=== PATIENT | male | born 1945 | race Two or more races ===

== ENCOUNTER 2018-07-04 15:14 | Emergency (ER) | payer OTHER, BC ==
--- NOTE | 2018-07-04 15:21 | PDOC ---
Rapid Medical Evaluation Time Seen by Provider: 07/04/18 15:18 Medical Evaluation: Allergies Allergy/AdvReac Type Severity Reaction Status Date / Time No Known Allergies Allergy Verified 08/12/15 11:58 07/04/18 15:18 I have performed a brief in-person evaluation of this patient. The patient presents with a chief complaint of: left sided body pain s/p fall from 3-4 ft wall Pertinent physical exam findings: No TTP of bony prominences. +AOB. I have ordered the following: CTH and c-spine The patient will proceed to the ED for further evaluation. Discharge Disposition - Diagnosis Fall - Referrals Referrals: Ruben Combs MD [Primary Care Provider] - - Patient Instructions - Post Discharge Activity
[2018-07-04 15:23] VITALS: BP 139/84; PULSE 84; TEMP 97; BMI 27.4
--- NOTE | 2018-07-04 15:51 | PDOC ---
History of Present Illness - General Chief Complaint: Injury Stated Complaint: FALL Time Seen by Provider: 07/04/18 15:18 History Source: Patient, Spouse Exam Limitations: No Limitations - History of Present Illness Initial Comments: 07/04/18 15:46 73YOM with h/o A-fib on Xarelto, HTN, HLD, COPD, DM, cholecystectomy, and chronic neck and back pain s/p multiple spinal surgeries (laminectomy, fusion) who was BIBEMS s/p fall from 3 ft wall today at 2:30 pm. He was gardening, feeling well, when he slipped on some oil and landed on the right side of his body and head. Denies LOC, hit his right head/ear. Has been mildly/ intermittently lightheaded/SOB since the fall but otherwise no new symptoms other than the pain. His pain is worst in the upper right neck, also has it in the right upper back and right chest. +Remebers the exact moment when he hit the ground and was dazed for a few seconds but again did not black out. Family was at his side immediately, no prolonged down time. Took nothing at home for the subsequent pain. Past History - Past Medical History Allergies/Adverse Reactions: Allergies Allergy/AdvReac Type Severity Reaction Status Date / Time No Known Allergies Allergy Verified 07/04/18 15:23 Home Medications: Ambulatory Orders Dronedarone HCl [Multaq -] 400 mg PO BID 04/02/12 Tiotropium [place] [Spiriva] 18 mcg IH DAILY #0 cap.w.dev 04/05/12 Rivaroxaban [Xarelto -] 20 mg PO DAILY #0 02/06/14 Metoprolol Succinate [Toprol XL -] 100 mg PO HS 02/20/15 Oxycodone HCl/Acetaminophen [Percocet 5-325 mg Tablet] 1 combo PO Q6H PRN #14 tablet 02/20/15 Escitalopram Oxalate [Lexapro -] 10 mg PO DAILY 02/22/15 Lisinopril [Prinivil -] 2.5 mg PO DAILY 02/22/15 Ubidecarenone [Coq-10] 1 tab PO DAILY 02/22/15 metFORMIN HCL [Glucophage -] 500 mg PO BID 02/22/15 Budesonide/Formeterol Fumarate [SYMBICORT 160/4.5mcg -] 1 inh PO DAILY 09/28/15 Pramipexole Dihydrochloride [Mirapex -] 0.25 mg PO DAILY PRN 09/28/15 Multivit-Min/FA/Lycopen/Lutein [Centrum Silver Tablet] 1 each PO DAILY 09/29/15 Ranitidine [Zantac -] 150 mg PO DAILY #0 tablet 09/29/15 Rosuvastatin Calcium [Crestor] 10 mg PO HS 09/29/15 Anemia: No Asthma: Yes Cancer: No Cardiac Disorders: Yes (H/O AFIB) CVA: No COPD: Yes CHF: No Dementia: No Diabetes: Yes (NIDDM) GI Disorders: Yes (REFLUX) Disorders: No HTN: Yes Hypercholesterolemia: Yes Liver Disease: No Seizures: No Thyroid Disease: No - Surgical History Abdominal Surgery: No Appendectomy: No Cardiac Surgery: No Cholecystectomy: Yes Lung Surgery: No Neurologic Surgery: Yes (ANT/POST. FUSION OF NECK) Orthopedic Surgery: Yes (LAMINECTOMY;) - Suicide/Smoking/Psychosocial Hx Smoking Status: Yes (QUIT 3 YEARS AGO) Smoking History: Former smoker Have you smoked in the past 12 months: No Number of Cigarettes Smoked Daily: 0 If you are a former smoker, when did you quit?: 10YRS Information on smoking cessation initiated: No 'Breaking Loose' booklet given: 02/22/15 Hx Alcohol Use: Yes Drug/Substance Use Hx: No Substance Use Type: Alcohol Hx Substance Use Treatment: No Trauma Specific PMHX - Complaint Specific PMHX Arthritis: No Review of Systems - Review of Systems Able to Perform ROS?: Yes Comments:: GEN: no fever, chills, malaise, generalized weakness, or weight change HEENT: no ear pain, sore throat, vision change, or eye pain CV: right chest pain, lightheadedness, no palpitations, syncope, or edema RESP: SOB, no cough, no wheezing GI: no abdominal pain, nausea, vomiting, diarrhea, constipation, or white/black/ bloody stool : no dysuria, hematuria, incontinence, retention, bleeding, or discharge MSK: neck/back pain, otherwise no muscle weakness/pain, or joint swelling/pain NEURO: no headache, seizure, vertigo, numbness, tingling, or focal weakness PSYCH: no substance use, no behavior change SKIN: no jaundice, no rash ROS otherwise negative except as noted in HPI *Physical Exam - Vital Signs Last Vital Signs Temp Pulse Resp BP Pulse Ox 97.0 F L 84 18 139/84 100 07/04/18 15:20 07/04/18 15:20 07/04/18 15:20 07/04/18 15:20 07/04/18 15:20 07/04/18 16:03 GENERAL: pleasant elderly male who is uncomfortable but well-appearing, A/Ox4, no distress, answers questions appropriately, moderate discomfort with repositioning for back exam HEENT: PERRLA, EOMI, moist mucous membranes, no dunn sign, no hemotympanum, no scalp contusion/abrasion/laceration NECK/BACK: see Skin Section for surgical scars, midline and superior right paraspinous ttp, no spinal stepoff or deformity, no hematoma, neck supple CARDIOVASCULAR: irregularly irregular, normal S1S2, no MGR, strong peripheral pulses, capillary refill <2 seconds, extremities wwp, no edema LUNGS/RESPIRATORY: no respiratory distress, CTAB GI/ABDOMEN: symmetric [id number], normoactive BS, soft, no ttp, no midline pulsatile masses : no CVA tenderness EXTREMITIES: no muscle atrophy, no acute deformity, no edema SKIN: midline well-healed surgical scars to cervical spine, tiny skin avulsion to right anterior haskins, warm and dry, no pallor, no jaundice, no rash, no bruising, no skin breakdown, no cuts, no lesions NEUROLOGICAL: GCS 15, CN II-XII grossly intact, 5/5 strength proximally and distally, no facial droop Heart Score/ECG Review #1 07/04/18 15:56 A-fib, rate 72, slight flutter wave in III, normal axis and intervals, no ischemic ST-T changes ED Treatment Course - RADIOLOGY Radiology Studies Ordered: Category Date Time Status CXRPORT [CHEST X-RAY PORTABLE*] [RAD] Stat Radiology 07/04/18 15:25 Ordered Medical Decision Making - Medical Decision Making 07/04/18 16:39 Pt p/w fall and head injury. Initial Vital Signs Temp Pulse Resp BP Pulse Ox 97.0 F L 84 18 139/84 100 07/04/18 15:20 07/04/18 15:20 07/04/18 15:20 07/04/18 15:20 07/04/18 15:20 Exam: As noted in Physical Exam section. DDX IBNLT: C-spine injury, whiplash injury, muscle strain/sprain, very unlikely concussion, ICH, or other more concerning etiology. W/U ordered: Head and C-spine CT and EKG and CXR TX ordered: Tramadol EKG: Reviewed; results as noted in ECG Review section. CHEST X-RAY PORTABLE* HISTORY PROVIDED: Fall. A single frontal portable projection of the chest at 4:56 PM is submitted. The heart size is mildly enlarged. The lung larsen are free of pulmonary infiltrates or pleural effusions. Platelike atelectasis is noted at the right lung base. There is tortuosity and calcification of the thoracic aorta and degenerative arthritis of the thoracic spine. IMPRESSION: Cardiomegaly, right basilar atelectasis, no acute pathology. CT/HEAD CT WITHOUT CONTRAST HISTORY PROVIDED: Head trauma TECHNIQUE: Sequential axial images were obtained from the base of the skull to the vertex. There is no evidence of acute intracranial hemorrhage, mass lesions or infarctions. There is a mild degree of diffuse cerebral atrophy with sulcal widening and ventricular dilatation. There is no evidence of fracture or acute bony abnormalities. IMPRESSION: No evidence of acute intracranial pathology. CT/CERVICAL SPINE CT W/O CONTR History provided: Trauma. Sequential axial images were obtained through the cervical spine from the base of the skull to the thoracic inlet. Coronal and sagittal reconstructed images were also performed. There is no evidence of fracture, subluxation or acute bony abnormalities. The patient is S/P laminectomy with anterior fusion from C3 to C6. Clinical correlation as to the nature of the procedure is recommended. IMPRESSION: Extensive postoperative changes of the cervical spine with no fracture or acute pathology. Reassessment: Patient refusing Tramadol; #1 Percocet ordered. The Pt has gotten significant relief of symptoms while in the ED. They have been observed without AMS, n/v, LOC, or focal neuro findings in the ED. Workup is not concerning for emergency-level pathology at this time. The Pt is appropriate for discharge with close outpatient follow up. They are comfortable with this plan and will follow up with their primary care provider in 1-3 days. Return precautions for concussion and CHI are discussed and they will come back to the ER if necessary. *DC/Admit/Observation/Transfer Diagnosis at time of Disposition: Fall Qualifiers: Encounter type: initial encounter Qualified Code(s): W19.XXXA - Unspecified fall, initial encounter - Discharge Dispostion Disposition: HOME Condition at time of disposition: Stable Decision to Admit order: No - Referrals Referrals: Ruben Combs MD [Primary Care Provider] - - Patient Instructions Additional Instructions: You were seen in the ER for a fall and neck pain. We did an EKG and imaging studies and found no new concerning findings. We gave you Flexeril and a Percocet for pain. After our assessment, we do not believe you are having a medical emergency at this time, and we believe you are safe to go home. Please follow up with your primary care provider in 1-3 days. Call their clinic as soon as possible, tell them you were seen in the ER, and tell them you need an appointment. If you have any new or worsening symptoms, please come back to the ER at any time (24 hours a day). Read through the concussion and head injury discharge instructions we are including in this information packet. If you are having severe or life threatening symptoms, or symptoms that make it unsafe to drive or have someone drive you, please call 911. - Post Discharge Activity
[2018-07-04] MEDS ORDERED: traMADol HCL 50 MG TABLET PO ONE (17:00)
[2018-07-04] MEDS ORDERED: traMADol HCL 50 MG TABLET ONE (17:20)
[2018-07-04] MEDS ORDERED: CYCLOBENZAPRINE HCL 10 MG TABLET (FP) PO ONE (17:50)
--- NOTE | 2018-07-04 17:53 | PDOC ---
Attending Attestation - Resident Resident Name: Lis Kerr - ED Attending Attestation I have performed the following: I have examined & evaluated the patient, The case was reviewed & discussed with the resident, I agree w/resident's findings & plan, Exceptions are as noted - HPI HPI: 07/04/18 17:47 This is a 73 year old male with a significant past medical history of Afib (on Xarelto), DM, COPD, HTN, hypercholesterolemia, cholecystectomy, and neck and back surgeries, that was BIBEMS to the emergency department today s/p fall off a 3 ft wall earlier today. Patient notes he was gardening as normal and slipped on oil, causing him to fall on his head and right side of his body. Patient states he remembers the fall, and hit the right side of his head and his right ear, but denies LOC. He admits being dazed after the fall but denies blacking out. Patient notes pain is most prominent on the right side of his neck and the right side of his back. Denies headache, blurry vision, dizziness, N/V/D, CP/SOB , other injuries, abd pain. Denies etoh. Denies fever, chills. PCP: Dr. Combs Surgical hx: Laminectomy, spinal fusion. - Physicial Exam PE: 07/04/18 17:51 GENERAL: Awake, alert, and fully oriented, in no acute distress HEAD: No signs of trauma EYES: PERRLA, EOMI, sclera anicteric, conjunctiva clear ENT: Nares patent, oropharynx clear without exudates. Moist mucosa NECK: +Paraspinal cervical ttp. +well healed midline cervical scar. Normal ROM, supple, no lymphadenopathy, JVD, or masses LUNGS: Breath sounds equal, clear to auscultation bilaterally. No wheezes, and no crackles HEART: Regular rate and rhythm, normal S1 and S2, no murmurs, rubs or gallops ABDOMEN: Soft, nontender, normoactive bowel sounds. No guarding, no rebound. No masses EXTREMITIES: Normal range of motion, no edema. No clubbing or cyanosis. No cords , erythema, or tenderness. No snuffbox ttp b/l. 2+ peripheral pulses x4. BACK: +Paraspinal lower lumbar pain. No midline cervical, thoracic, or lumbar spinal tenderness to palpation. No stepoffs or deformities NEUROLOGICAL: Normal speech, cranial nerves intact, 5/5 strength in all 4 extremities, normal sensation to light touch in all 4 extremities, normal cerebellar exam, normal gait, normal tone SKIN: Warm, Dry, normal turgor, no rashes or lesions noted. - Medical Decision Making 07/04/18 17:53 73yo M presents to the ED with paraspinal neck and lower back pain and tenderness after a mechanical fall. Denies FOOSH R arm pain. Denies chest or rib pain. Pt states it feels like his previous muscle spasms in his neck and requests percocet (he takes at home) and a muscle relaxer. Pt declined tramadol as he only wants percocet. Pt is otherwise well appearing. CTH, c-spine with no acute findings. CXR with atelectasis but no acute findings, lungs clear on exam with no hypoxia. No ttp over the ribs. Plan for FAST exam and reassess after percocet and flexeril. 07/04/18 18:21 FAST negative Pt well appearing, requests DC home Return precautions given to pt and Stable for DC home, to be driven home by son. I discussed the physical exam findings, ancillary test results and final diagnoses with the patient. I answered all of the patient's questions. The patient was satisfied with the care received and felt comfortable with the discharge plan and treatment plan. The patient will call their primary care physician within 24 hours to arrange follow-up and will return to the Emergency Department with any new, persistent or worsening symptoms.
[2018-07-04] MEDS ORDERED: CYCLOBENZAPRINE HCL 10 MG TABLET (FP) ONE (17:58)
--- NOTE | 2018-07-06 10:15 | EKG ---
Test Reason : Blood Pressure : / mmHG Vent. Rate : 072 BPM Atrial Rate : 063 BPM P-R Int : 000 ms QRS Dur : 090 ms QT Int : 406 ms P-R-T Axes : 000 038 057 degrees QTc Int : 444 ms ATRIAL FIBRILLATION ABNORMAL ECG WHEN COMPARED WITH ECG OF 12-AUG-2015 13:00, ATRIAL FIBRILLATION HAS REPLACED SINUS RHYTHM Confirmed by RONALDO CUEVAS MD ([id number]) on 07/06/2018 10:15:32 AM Referred By: Confirmed By:RONALDO CUEVAS MD
== END 2018-07-04 18:25 | disposition home or self-care (01) ==
LOC: JER 15:14
DX: S09.8XXA Other specified injuries of head, initial encounter (principal); W13.8XXA Fall from, out of or through other building or structure, initial encounter; Y93.H2 Activity, gardening and landscaping; Y92.017 Garden or yard in single-family (private) house as the place of occurrence of the external cause; Y99.8 Other external cause status; I10 Essential (primary) hypertension; E78.00 Pure hypercholesterolemia, unspecified; E11.9 Type 2 diabetes mellitus without complications; Z79.84 Long term (current) use of oral hypoglycemic drugs; I48.91 Unspecified atrial fibrillation; Z79.01 Long term (current) use of anticoagulants; J44.9 Chronic obstructive pulmonary disease, unspecified; Z90.49 Acquired absence of other specified parts of digestive tract; Z98.890 Other specified postprocedural states
CPT/HCPCS: 70450-TC; 71045-TC-FY; 72125-TC; 93005; 93010; 99283-25

== ENCOUNTER 2019-03-13 07:06 | Day surgery (SDC) | payer OTHER, BC ==
[2019-03-11 08:48] VITALS: BMI 29.1
[2019-03-13] MEDS ORDERED: TAMSULOSIN HCL 0.4 MG CAP ONE (07:18)
[2019-03-13] MEDS ORDERED: ceFAZolin SODIUM 1 GM VIAL ONE ×2 (07:18→08:32)
[2019-03-13] MEDS ORDERED: PROPOFOL 20 ML ONE (08:31)
[2019-03-13] MEDS ORDERED: SODIUM CHLORIDE 0.9% P/F 10 ML VIAL IJ ONE (08:32)
[2019-03-13] MEDS ORDERED: ONDANSETRON 4 MG/2 ML VIAL ONE (08:32)
[2019-03-13] MEDS ORDERED: LIDOCAINE HCL/PF 2% SDV 5ML VIAL ONE (08:32)
[2019-03-13] MEDS ORDERED: ROCURONIUM BROMIDE 50 MG/5 ML SYRINGE ONE (08:32)
[2019-03-13] MEDS ORDERED: ROPIVACAINE HCL 0.5% 30ML VIAL ONE (08:45)
[2019-03-13] MEDS ORDERED: DEXAMETHASONE SOD PHOSPHATE/PF 10 MG/ML SDV ONE (08:45)
[2019-03-13] MEDS ORDERED: NEOSTIGMINE METHYLSULFATE 0.5 MG/1 ML - 10 ML MDV ONE (08:47)
[2019-03-13] MEDS ORDERED: MIDAZOLAM HCL 2 MG/2 ML SINGLE DOSE VIAL ONE ×2 (08:47)
[2019-03-13] MEDS ORDERED: GLYCOPYRROLATE 0.2 MG/1 ML VIAL ONE ×2 (08:48→10:12)
[2019-03-13] MEDS ORDERED: LIDOCAINE HCL 1%, 10 MG/ML (20ML VIAL) ONE (09:10)
[2019-03-13] MEDS ORDERED: ceFAZolin SODIUM 1 GM VIAL IVPB ONE (09:25)
[2019-03-13] MEDS ORDERED: DEXAMETHASONE SOD PHOSPHATE 4 MG/1 ML VIAL ONE (09:27)
[2019-03-13] MEDS ORDERED: ONDANSETRON 4 MG/2 ML VIAL IVPUSH PRN (10:24)
[2019-03-13] MEDS ORDERED: oxyCODONE HCL 5 MG TABLET PO PRN (10:24)
[2019-03-13] MEDS ORDERED: LACTATED RINGERS SOLUTION 1,000 ML IV SCH (10:30)
--- NOTE | 2019-03-13 12:15 | HP ---
DATE OF SURGERY: 03/13/19 REASON FOR ADMISSION: Left inguinal hernia. BRIEF HISTORY: This is a 74-year-old gentleman with greater than a 5-year history of having a left inguinal hernia. Initially, the hernia was very small, and the patient was told to manage this expectantly. Over this time, of course, the hernia has gotten significantly larger, and now, causes him discomfort at times. He wishes to his hernia repaired. The patient states the hernia would pop out at times and sometimes be very painful, and he has to push it back in, and subsequently, the pain will be resolved. When this occurs there has been no change in bowel habits, nausea, or vomiting. PAST MEDICAL HISTORY: Significant for pulmonary issues. 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 MEDICATIONS: Patient takes Xarelto, metformin, ranitidine, escitalopram, metoprolol, rosuvastatin, nitroglycerin, Symbicort, Spiriva, amlodipine, lisinopril and oxycodone. ALLERGIES: None. SOCIAL HISTORY: Patient denies tobacco use. He drinks socially. PHYSICAL EXAMINATION: Abdomen: Patient examined in erect and supine positions. He has a large left inguinal hernia with extension into the left proximal scrotum. The hernia is reducible with some difficulty in the supine position. The left scrotum and testicles are within normal limits. No obvious finding in the right groin, but a fair amount of laxity is ntoed. IMPRESSION/PLAN: Left inguinal hernia, cannot rule out small right inguinal hernia: This is a 74-year-old gentleman symptomatic from an enlarging left inguinal hernia. At this point, given his symptoms, I would recommend proceeding with a repair. Patient is a candidate for laparoscopic repair of his left inguinal hernia and examination and possible repair on the right. However, he is on Xarelto. This can only be done laparoscopically if he is able to stop his Xarelto for the necessary surgery, and he cannot start the Xarelto for 3 days after surgery. If this cannot be accomplished without a Lovenox bridge or some other form of bridging, he is not a candidate for laparoscopic repair, and therefore, this can be performed in an open fashion with stopping of his Xarelto and bridging as necessary. Prior to any surgical intervention, the patient will be evaluated by his primary care physician and his radar systems engineer to determine stopping his Xarelto and managing him from a cardiovascular standpoint to ensure he is medically cleared. The indications, alternatives, and complications of both procedures have been discussed with this gentleman at length. He understands he is more likely to develop a postoperative seroma, which may or may not resolve due to the fact that he is on blood thinner. Patient understands these risks and still wishes to proceed. Patricia CARLIN [id number] cc: Ruben Combs MD MTDD
[2019-03-13] MEDS ORDERED: oxyCODONE HCL 5 MG TABLET ONE (12:54)
[2019-03-13 13:05] VITALS: TEMP 98
--- NOTE | 2019-03-13 13:49 | OP ---
DATE OF OPERATION: 03/13/2019 PREOPERATIVE DIAGNOSIS: Left inguinal hernia. POSTOPERATIVE DIAGNOSIS: Left indirect inguinal hernia, right inguinal hernia indirect. PROCEDURE: Bilateral inguinal herniorrhaphy with mesh. SURGEON: Bib Russell MD TIRE SPOTTER: Sushil Guido DO ANESTHESIA: Shital Nieves MD (general). ESTIMATED BLOOD LOSS: Minimal. SPECIMEN: None. INDICATIONS/PROCEDURE: This is a 74-year-old gentleman with greater than a 5- year history of having a left inguinal hernia that is causing him discomfort. Now, he wishes to have this repaired. Patient was identified and appropriately positioned on the operating room table. After placement of general anesthesia, the abdomen was prepped and draped in the usual sterile fashion with ChloraPrep. An infraumbilical incision was made deep into the subcutaneous tissues. The fascia of the rectus muscle on the left identified, divided sharply, the muscles split. Under direct vision, a dissector balloon followed by structural balloon placed. Also, under direct vision, a suprapubic 11-mm port placed. The following structures on the left side identified, pubic tubercle, Coopers ligament, and inferior epigastric vessels, spermatic cord, and lateral abdominal wall. During the dissection, the patient was noted to have attenuation of the direct inguinal floor. There was no actual defect in the direct inguinal floor. He had a large indirect inguinal hernia sac along with a small cord lipoma, both reduced back into the preperitoneal space with blunt and sharp dissection. A 4.5 x 6 piece of Versatex mesh was keyhole placed through the suprapubic port site. The mesh was wrapped around the cord structures laterally to reconstruct the internal ring. Laterally, the mesh anchored to the anterior abdominal wall and lateral abdominal wall. Medially, the mesh anchored to the anterior abdominal wall, pubic tubercle, and Coopers ligament. Upon completion of the left side, similar structures on the right side identified. The right side had no direct component. He had a small indirect inguinal hernia which was reduced back into the preperitoneal space. Another 4.5 x 6 piece of Versatex mesh was keyhole placed through the suprapubic port site. The mesh wrapped around the cord structures laterally to reconstruct the internal ring. Laterally, the mesh anchored to the anterior abdominal wall and lateral abdominal wall. Medially, the mesh well overlapped in the midline, anchored to the anterior abdominal wall, pubic tubercle, and Coopers ligament. The preperitoneal space desufflated under direct vision. The fascia at both port sites were reapproximated with interrupted 0 Vicryl suture. All skin closed with 4-0 subcuticular Biosyn followed by Dermabond. At the conclusion of the case, sponge and instrument counts were correct. ATTESTATION: Brief operative note handwritten on the preprinted form. [facility] queried prior to giving any narcotics. Patricia CARLIN [id number] MTDD
[2019-03-13 14:01] VITALS: BP 149/67; PULSE 90
== END 2019-03-13 14:00 | disposition home or self-care (01) ==
LOC: JASU-SURG 07:06
PROVIDERS: ATTEND Surgery
PROC: 0YUA0JZ Supplement Bilateral Inguinal Region with Synthetic Substitute, Open Approach (ICD-10-PCS; principal; 2019-03-13 09:14)
DX: K40.20 Bilateral inguinal hernia, without obstruction or gangrene, not specified as recurrent (principal)
CPT/HCPCS: 94760

== ENCOUNTER 2021-03-09 11:48 | Inpatient (IN) | payer OTHER, BC ==
[2021-03-09] MEDS ORDERED: ALBUTEROL SO4 2.5/IPRATROPIUM 0.5 INH SOL 3 ML VIAL.NEB. NEB ONE ×6 (11:57→19:11)
[2021-03-09] MEDS ORDERED: methylPREDNISolone NA SUCC 125 MG/2 ML VIAL IVPB ONE (11:58)
[2021-03-09] MEDS ORDERED: ACETAMINOPHEN 325 MG TABLET (FP) PO ONE (12:37)
[2021-03-09] MEDS ORDERED: ACETAMINOPHEN 325 MG TABLET (FP) ONE (12:46)
[2021-03-09] MEDS ORDERED: methylPREDNISolone NA SUCC 125 MG/2 ML VIAL ONE (12:46)
[2021-03-09 13:33] LABS: BASO % 0.7 % (0-2.0); EOS % 1.9 % (0-4.5); HEMATOCRIT 35.7 % (35.4-49); HEMOGLOBIN 11.9 GM/dl (11.7-16.9); LYMPH % 12.4 % (8-40); MCH 30.9 pg (25.7-33.7); MCHC 33.5 g/dl (32.0-35.9); MEAN CELL VOLUME 92.2 fl (80-96); MEAN PLT VOLUME 7.2 fl (7.5-11.1); MONO % 8.5 % (3.8-10.2); NEUT % 76.5 % (42.8-82.8); PLATELET COUNT 145 10^3/uL (134-434); RBC 3.87 M/mm3 (4.00-5.60); RDW 13.3 % (11.9-15.9); WHITE BLOOD COUNT 5.3 K/mm3 (4.0-10.8)
[2021-03-09 13:43] LABS: ACTIVATED PTT 26.8 SECONDS (25.2-36.5)
[2021-03-09 13:47] LABS: INR 1.44 (0.82-1.09); PROTHROMBIN TIME (PATIENT) 15.7 SEC (10.2-13.0)
[2021-03-09 13:50] LABS: ALBUMIN 3.2 g/dl (3.4-5.0); ALK PHOS 44 U/L (45-117); ANION GAP 8 MMOL/L (8-16); CALCIUM 8.2 mg/dl (8.5-10); CHLORIDE 99 mmol/L (98-107); CO2 25 mmol/L (21-32); CREATININE 0.7 mg/dl (0.55-1.3); GLUCOSE,RANDOM 180 mg/dl (74-106); MAGNESIUM 1.5 mg/dL (1.8-2.4); SGOT/AST 29 U/L (15-37); SGPT/ALT 37 U/L (13-61); SODIUM 132 mmol/L (136-145); TOT PROT 5.6 g/dl (6.4-8.2)
[2021-03-09] MEDS ORDERED: CEFTRIAXONE 1 GM in DEXTROSE 5%-WATER - 100 ML IVPB ONE (14:10)
[2021-03-09] MEDS ORDERED: AZITHROMYCIN IVPB 500 MG in DEXTROSE 5%-WATER - 250 ML IVPB ONE (14:10)
[2021-03-09] MEDS ORDERED: MAGNESIUM SULF 50% (8.12 MEQ/2 ML-1 GM VIAL) IVPB ONE (14:22)
[2021-03-09] MEDS ORDERED: AZITHROMYCIN 500 MG VIAL IVPB ONE (14:43)
[2021-03-09] MEDS ORDERED: cefTRIAXone SODIUM 1 GM VIAL ONE (14:43)
[2021-03-09 15:02] LABS: VENOUS BASE EXCESS -0.7 mmol/L (-2-2); VENOUS PH 7.322 (7.310-7.410)
[2021-03-09 15:14] LABS: N-TERMINAL BNP 1696.4 pg/ml (5-450)
[2021-03-09] MEDS ORDERED: MAGNESIUM 1GM/D5W - 2 GM/200 ML IVPB IVPB ONE (16:11)
[2021-03-09 20:24] VITALS: BMI 28.0
[2021-03-09] MEDS ORDERED: ALBUTEROL SO4 2.5/IPRATROPIUM 0.5 INH SOL 3 ML VIAL.NEB. NEB PRN (21:34)
[2021-03-09] MEDS: BUDESONIDE/FORMETEROL FUMARATE 160/4.5 mcg INHALER IH SCH (22:09)
[2021-03-09] MEDS: RANOLAZINE E.R. 500 MG TABLET (FP) PO SCH (22:10)
[2021-03-09] MEDS: GABAPENTIN 300 MG CAPSULE PO SCH (22:10)
[2021-03-09] MEDS: ESCITALOPRAM OXALATE 10 MG TABLET PO SCH (22:10)
[2021-03-09] MEDS: ROSUVASTATIN CA 10 MG TABLET (FP) PO SCH (22:10)
[2021-03-10] MEDS: methylPREDNISolone NA SUCC 40 MG/1 ML VIAL IVPUSH SCH ×3 (03:00→18:01)
[2021-03-10] MEDS: GABAPENTIN 300 MG CAPSULE PO SCH ×3 (06:02→21:27)
[2021-03-10] MEDS ORDERED: metFORMIN HCL 500 MG TABLET (FP) PO SCH (07:00)
[2021-03-10] MEDS: TAMSULOSIN HCL 0.4 MG CAP PO SCH (08:03)
[2021-03-10] MEDS: amLODIPine BESYLATE 5 MG TABLET (FP) PO SCH (09:04)
[2021-03-10] MEDS: LOSARTAN POTASSIUM 50 MG TABLET PO SCH (09:04)
[2021-03-10] MEDS: ESCITALOPRAM OXALATE 10 MG TABLET PO SCH ×2 (09:04→21:27)
[2021-03-10] MEDS: RANOLAZINE E.R. 500 MG TABLET (FP) PO SCH ×2 (09:05→21:28)
[2021-03-10] MEDS: MONTELUKAST NA 10 MG TABLET PO SCH (09:05)
[2021-03-10] MEDS: FINASTERIDE 5 MG TABLET (FP) PO SCH (09:05)
[2021-03-10] MEDS: TIOTROPIUM BROMIDE 2.5 MCG (SPIRIVA) RESPIMAT INHALER IH SCH (09:06)
[2021-03-10] MEDS: BUDESONIDE/FORMETEROL FUMARATE 160/4.5 mcg INHALER IH SCH ×2 (10:01→21:31)
[2021-03-10] MEDS: FAMOTIDINE 20 MG TABLET PO SCH (12:01)
[2021-03-10 12:29] LABS: BASO % 0.2 % (0-2.0); EOS % 0.1 % (0-4.5); HEMATOCRIT 33.5 % (35.4-49); HEMOGLOBIN 11.2 GM/dl (11.7-16.9); LYMPH % 7.6 % (8-40); MCH 30.9 pg (25.7-33.7); MCHC 33.3 g/dl (32.0-35.9); MEAN CELL VOLUME 92.9 fl (80-96); MEAN PLT VOLUME 6.7 fl (7.5-11.1); MONO % 4.2 % (3.8-10.2); NEUT % 87.9 % (42.8-82.8); PLATELET COUNT 175 10^3/uL (134-434); RBC 3.61 M/mm3 (4.00-5.60); RDW 13.2 % (11.9-15.9); WHITE BLOOD COUNT 8.6 K/mm3 (4.0-10.8)
[2021-03-10] MEDS: AZITHROMYCIN 250 MG TABLET PO SCH (12:55)
[2021-03-10 12:56] LABS: ALBUMIN 3.2 g/dl (3.4-5.0); BILIRUBIN,TOTAL 0.9 mg/dl (0.2-1); CALCIUM 8.3 mg/dl (8.5-10); CREATININE 0.7 mg/dl (0.55-1.3); MAGNESIUM 1.8 mg/dL (1.8-2.4); TOT PROT 5.7 g/dl (6.4-8.2)
[2021-03-10] MEDS ORDERED: DEXTROSE 50%-WATER - 25 GM/50 ML VIAL IVPUSH PRN ×2 (15:57→15:58)
[2021-03-10] MEDS ORDERED: DEXTROSE 50%-WATER 25 GM/50 ML DISP.SYRIN IVPUSH PRN ×2 (16:03)
[2021-03-10] MEDS: INSULIN SLIDING SCALE (NOVOLOG) 1 VIAL SQ SCH ×2 (16:38→21:28)
[2021-03-10] MEDS: RIVAROXABAN 20 MG TABLET PO SCH (18:01)
[2021-03-10] MEDS: ROSUVASTATIN CA 10 MG TABLET (FP) PO SCH (21:27)
[2021-03-11] MEDS: methylPREDNISolone NA SUCC 40 MG/1 ML VIAL IVPUSH SCH ×3 (02:00→18:49)
[2021-03-11] MEDS: GABAPENTIN 300 MG CAPSULE PO SCH ×3 (06:14→21:18)
[2021-03-11] MEDS: INSULIN SLIDING SCALE (NOVOLOG) 1 VIAL SQ SCH ×4 (06:18→21:19)
[2021-03-11 08:08] LABS: CALCIUM 8.6 mg/dl (8.5-10); CREATININE 0.6 mg/dl (0.55-1.3)
[2021-03-11] MEDS: BUDESONIDE/FORMETEROL FUMARATE 160/4.5 mcg INHALER IH SCH ×2 (10:00→21:21)
[2021-03-11] MEDS: TIOTROPIUM BROMIDE 2.5 MCG (SPIRIVA) RESPIMAT INHALER IH SCH (10:00)
[2021-03-11] MEDS: FINASTERIDE 5 MG TABLET (FP) PO SCH (11:30)
[2021-03-11] MEDS: RANOLAZINE E.R. 500 MG TABLET (FP) PO SCH ×2 (11:45→21:19)
[2021-03-11] MEDS: LOSARTAN POTASSIUM 50 MG TABLET PO SCH (11:45)
[2021-03-11] MEDS: ESCITALOPRAM OXALATE 10 MG TABLET PO SCH ×2 (11:46→21:18)
[2021-03-11] MEDS: TAMSULOSIN HCL 0.4 MG CAP PO SCH (11:46)
[2021-03-11] MEDS: amLODIPine BESYLATE 5 MG TABLET (FP) PO SCH (11:46)
[2021-03-11] MEDS: FAMOTIDINE 20 MG TABLET PO SCH (11:46)
[2021-03-11] MEDS: AZITHROMYCIN 250 MG TABLET PO SCH (11:46)
[2021-03-11] MEDS: MONTELUKAST NA 10 MG TABLET PO SCH (11:46)
[2021-03-11] MEDS: RIVAROXABAN 20 MG TABLET PO SCH (18:49)
[2021-03-11] MEDS: ROSUVASTATIN CA 10 MG TABLET (FP) PO SCH (21:18)
[2021-03-12] MEDS: methylPREDNISolone NA SUCC 40 MG/1 ML VIAL IVPUSH SCH ×3 (02:00→18:05)
[2021-03-12] MEDS: GABAPENTIN 300 MG CAPSULE PO SCH ×3 (05:19→21:47)
[2021-03-12] MEDS: INSULIN SLIDING SCALE (NOVOLOG) 1 VIAL SQ SCH ×5 (06:00→21:46)
[2021-03-12] MEDS: metFORMIN HCL 500 MG TABLET (FP) PO SCH ×2 (06:00→16:35)
[2021-03-12 08:07] LABS: BASO % 0.2 % (0-2.0); EOS % 0.1 % (0-4.5); HEMATOCRIT 31.7 % (35.4-49); HEMOGLOBIN 10.9 GM/dl (11.7-16.9); LYMPH % 7.9 % (8-40); MCH 31.9 pg (25.7-33.7); MCHC 34.4 g/dl (32.0-35.9); MEAN CELL VOLUME 92.5 fl (80-96); MEAN PLT VOLUME 7.1 fl (7.5-11.1); MONO % 3.8 % (3.8-10.2); PLATELET COUNT 180 10^3/uL (134-434); RBC 3.42 M/mm3 (4.00-5.60); RDW 12.6 % (11.9-15.9); WHITE BLOOD COUNT 8.9 K/mm3 (4.0-10.8)
[2021-03-12 08:16] LABS: ALBUMIN 2.9 g/dl (3.4-5.0); BILIRUBIN,TOTAL 0.9 mg/dl (0.2-1); CALCIUM 8.7 mg/dl (8.5-10); CREATININE 0.6 mg/dl (0.55-1.3); TOT PROT 5.2 g/dl (6.4-8.2)
[2021-03-12] MEDS: RANOLAZINE E.R. 500 MG TABLET (FP) PO SCH ×2 (09:51→21:47)
[2021-03-12] MEDS: amLODIPine BESYLATE 5 MG TABLET (FP) PO SCH (09:51)
[2021-03-12] MEDS: TAMSULOSIN HCL 0.4 MG CAP PO SCH (09:51)
[2021-03-12] MEDS: MONTELUKAST NA 10 MG TABLET PO SCH (09:52)
[2021-03-12] MEDS: AZITHROMYCIN 250 MG TABLET PO SCH (09:52)
[2021-03-12] MEDS: TIOTROPIUM BROMIDE 2.5 MCG (SPIRIVA) RESPIMAT INHALER IH SCH (09:53)
[2021-03-12] MEDS: LOSARTAN POTASSIUM 50 MG TABLET PO SCH (09:53)
[2021-03-12] MEDS: BUDESONIDE/FORMETEROL FUMARATE 160/4.5 mcg INHALER IH SCH ×2 (09:53→21:48)
[2021-03-12] MEDS: ESCITALOPRAM OXALATE 10 MG TABLET PO SCH ×2 (09:54→21:47)
[2021-03-12] MEDS: FAMOTIDINE 20 MG TABLET PO SCH (09:54)
[2021-03-12] MEDS: FINASTERIDE 5 MG TABLET (FP) PO SCH (09:55)
[2021-03-12] MEDS ORDERED: INSULIN SLIDING SCALE (NOVOLOG) 1 VIAL SQ ONE (11:21)
[2021-03-12] MEDS: RIVAROXABAN 20 MG TABLET PO SCH (18:04)
[2021-03-12] MEDS: ROSUVASTATIN CA 10 MG TABLET (FP) PO SCH (21:47)
[2021-03-12 21:52] VITALS: TEMP 97.9
[2021-03-13] MEDS: methylPREDNISolone NA SUCC 40 MG/1 ML VIAL IVPUSH SCH ×2 (01:32→10:13)
[2021-03-13] MEDS: GABAPENTIN 300 MG CAPSULE PO SCH (06:27)
[2021-03-13] MEDS: metFORMIN HCL 500 MG TABLET (FP) PO SCH (06:29)
[2021-03-13] MEDS: INSULIN SLIDING SCALE (NOVOLOG) 1 VIAL SQ SCH ×2 (06:33→13:48)
[2021-03-13 10:13] VITALS: BP 116/82; PULSE 55
[2021-03-13] MEDS: AZITHROMYCIN 250 MG TABLET PO SCH (10:13)
[2021-03-13] MEDS: FINASTERIDE 5 MG TABLET (FP) PO SCH (10:13)
[2021-03-13] MEDS: LOSARTAN POTASSIUM 50 MG TABLET PO SCH (10:14)
[2021-03-13] MEDS: TAMSULOSIN HCL 0.4 MG CAP PO SCH (10:14)
[2021-03-13] MEDS: ESCITALOPRAM OXALATE 10 MG TABLET PO SCH (10:14)
[2021-03-13] MEDS: MONTELUKAST NA 10 MG TABLET PO SCH (10:14)
[2021-03-13] MEDS: amLODIPine BESYLATE 5 MG TABLET (FP) PO SCH (10:14)
[2021-03-13] MEDS: RANOLAZINE E.R. 500 MG TABLET (FP) PO SCH (10:14)
[2021-03-13] MEDS: TIOTROPIUM BROMIDE 2.5 MCG (SPIRIVA) RESPIMAT INHALER IH SCH (10:15)
[2021-03-13] MEDS: FAMOTIDINE 20 MG TABLET PO SCH (10:15)
[2021-03-13] MEDS: BUDESONIDE/FORMETEROL FUMARATE 160/4.5 mcg INHALER IH SCH (10:16)
[2021-03-13] MEDS ORDERED: PATIENT'S OWN MEDICATION (NON-FORMULARY) (Albuterol Sulfate [Proair Respiclick] 90 MCG Aer IH PRN (10:34)
[2021-03-13] MEDS ORDERED: methylPREDNISolone NA SUCC 40 MG/1 ML VIAL IVPUSH SCH (10:45)
[2021-03-13] MEDS ORDERED: INSULIN (NOVOLOG) ASPART 100 UNITS/ML 10ML VIAL SQ SCH (11:00)
== END 2021-03-13 12:35 | disposition home or self-care (01) | DRG 191 ==
LOC: FER 11:48 → FM/S 14:22
PROVIDERS: ADMIT Specialist; ATTEND Specialist
DX: J44.1 Chronic obstructive pulmonary disease with (acute) exacerbation (principal); E87.1 Hypo-osmolality and hyponatremia; I48.91 Unspecified atrial fibrillation; E11.9 Type 2 diabetes mellitus without complications; Z79.01 Long term (current) use of anticoagulants; J44.9 Chronic obstructive pulmonary disease, unspecified; E78.00 Pure hypercholesterolemia, unspecified; I48.0 Paroxysmal atrial fibrillation; E83.42 Hypomagnesemia
CPT/HCPCS: 36415; 71045-TC-FY; 80048; 80053; 82550; 82803; 82962; 83735; 83880; 84484; 85025; 85610; 85730; 87040; 93005; 94640; 99285-25; C9803; U0003; U0005

== ENCOUNTER 2021-06-05 17:02 | Inpatient (IN) | payer OTHER, BC ==
[2021-06-05] MEDS ORDERED: HALOPERIDOL LACTATE 5 MG/ML IM ONE (17:48)
[2021-06-05] MEDS ORDERED: LORazepam 2 MG/ML SDV VIAL IM ONE (17:48)
[2021-06-05] MEDS ORDERED: HALOPERIDOL LACTATE 5 MG/ML ONE (18:03)
[2021-06-05] MEDS ORDERED: LORazepam 2 MG/ML SDV VIAL ONE (18:03)
[2021-06-05 19:50] LABS: PH,URINE 5.5 (5.0-8.0); URINE APPEARANCE CLOUDY; URINE BILIRUBIN NEGATIVE (NEGATIVE); URINE COLOR YELLOW; URINE GLUCOSE (UA) 3+ (NEGATIVE); URINE KETONE NEGATIVE (NEGATIVE); URINE LEUK ESTERASE NEGATIVE (NEGATIVE); URINE NITRITE NEGATIVE (NEGATIVE); URINE PROTEIN NEGATIVE (NEGATIVE); URINE UROBILINOGEN 0.2 mg/dL (0.2-1.0)
[2021-06-05 19:51] LABS: HEMATOCRIT 32.1 % (35.4-49); HEMOGLOBIN 10.9 GM/dL (11.7-16.9); MCH 31.5 pg (25.7-33.7); MCHC 33.8 g/dl (32.0-35.9); MEAN CELL VOLUME 93.3 fl (80-96); MEAN PLT VOLUME 8.2 fl (7.5-11.1); PLATELET COUNT 194 10^3/uL (134-434); RBC 3.45 M/mm3 (4.00-5.60); RDW 14.1 % (11.9-15.9); WHITE BLOOD COUNT 5.8 K/mm3 (4.0-10.0)
[2021-06-05 19:58] LABS: INR 1.46 (0.83-1.09); PROTHROMBIN TIME (PATIENT) 16.4 SEC (9.7-13.0)
[2021-06-05 20:00] LABS: ACTIVATED PTT 26.2 SECONDS (25.2-36.5)
[2021-06-05 20:02] LABS: COCAINE, UR NEGATIVE (NEGATIVE); METHADONE, UR NEGATIVE (NEGATIVE); OPIATES, URI NEGATIVE (NEGATIVE); PHENCYCLIDINE,URINE NEGATIVE (NEGATIVE); URINE AMPHETAMINES NEGATIVE (NEGATIVE); URINE BARBITURATES NEGATIVE (NEGATIVE); URINE BENZODIAZEPINES NEGATIVE (NEGATIVE)
[2021-06-05 20:07] LABS: CHLORIDE 106 mmol/L (98-107); SODIUM 138 mmol/L (136-145)
[2021-06-05 20:10] LABS: ALBUMIN 2.8 g/dl (3.4-5.0); ANION GAP 10 MMOL/L (8-16); BLOOD UREA NITROGEN 12.4 mg/dL (7-18); CO2 22 mmol/L (21-32); GLUCOSE,RANDOM 235 mg/dL (74-106); MAGNESIUM 1.3 mg/dL (1.8-2.4)
[2021-06-05 20:13] LABS: CREATININE 0.7 mg/dL (0.55-1.3); SGOT/AST 42 U/L (15-37); SGPT/ALT 26 U/L (13-61)
[2021-06-05] MEDS ORDERED: MAGNESIUM SULF 50% (8.12 MEQ/2 ML-1 GM VIAL) IVPB ONE (20:13)
[2021-06-05 20:14] LABS: PHOSPHOROUS 2.8 mg/dL (2.5-4.9)
[2021-06-05 20:15] LABS: BILIRUBIN,TOTAL 0.4 mg/dL (0.2-1); TOT PROT 5.7 g/dl (6.4-8.2)
[2021-06-05] MEDS ORDERED: FOLIC ACID INJECTION - 1 MG, THIAMINE HCL 100 MG, MULTIVIT INJECTION ADULT 10 ML in SOD... IVPB ONE (20:16)
[2021-06-05 20:24] LABS: ALK PHOS 54 U/L (45-117)
[2021-06-05 21:10] LABS: ANISOCYTOSIS 1+; MACROCYTOSIS 0; PLATELET ESTIMATE NORMAL
[2021-06-05 21:27] LABS: ALBUMIN 2.9 g/dl (3.4-5.0); BLOOD UREA NITROGEN 12.1 mg/dL (7-18)
[2021-06-05 21:30] LABS: CREATININE 0.7 mg/dL (0.55-1.3)
[2021-06-05 21:32] LABS: BILIRUBIN,TOTAL 0.3 mg/dL (0.2-1); TOT PROT 5.6 g/dl (6.4-8.2)
[2021-06-06 08:56] LABS: HEMATOCRIT 30.6 % (35.4-49); HEMOGLOBIN 10.6 GM/dL (11.7-16.9); MCH 31.9 pg (25.7-33.7); MCHC 34.6 g/dl (32.0-35.9); MEAN CELL VOLUME 92.4 fl (80-96); MEAN PLT VOLUME 6.4 fl (7.5-11.1); PLATELET COUNT 154 10^3/uL (134-434); RBC 3.31 M/mm3 (4.00-5.60); WHITE BLOOD COUNT 6.7 K/mm3 (4.0-10.0)
[2021-06-06 09:16] LABS: ALBUMIN 2.8 g/dl (3.4-5.0); BLOOD UREA NITROGEN 6.9 mg/dL (7-18); MAGNESIUM 1.2 mg/dL (1.8-2.4)
[2021-06-06 09:19] LABS: CREATININE 0.5 mg/dL (0.55-1.3)
[2021-06-06 09:21] LABS: BILIRUBIN,TOTAL 0.4 mg/dL (0.2-1); TOT PROT 5.4 g/dl (6.4-8.2)
[2021-06-06] MEDS ORDERED: LORazepam 1 MG TABLET PO ONE (09:34)
[2021-06-06] MEDS ORDERED: SODIUM CHLORIDE 0.45% 1,000 ML with POTASSIUM CHLORIDE 20 MEQ IV SCH (09:45)
[2021-06-06] MEDS ORDERED: MAGNESIUM SULFATE IN WATER 2 GM/50 ML IVPB IVPB ONE (09:50)
[2021-06-06] MEDS: SODIUM CHLORIDE 0.45% 1,000 ML with POTASSIUM CHLORIDE 20 MEQ IV SCH ×3 (10:02→11:55)
[2021-06-06] MEDS: MULTIVITAMINS (DAILY MVI) TABLET (FP) PO SCH (10:29)
[2021-06-06] MEDS: TAMSULOSIN HCL 0.4 MG CAP PO SCH (10:29)
[2021-06-06] MEDS: MONTELUKAST NA 10 MG TABLET PO SCH (10:30)
[2021-06-06] MEDS: PANTOPRAZOLE 40 MG TABLET PO SCH (10:30)
[2021-06-06] MEDS: ALBUTEROL SO4 HFA INHALER IH PRN (10:30)
[2021-06-06] MEDS: ESCITALOPRAM OXALATE 10 MG TABLET PO SCH ×2 (10:30→21:31)
[2021-06-06] MEDS: LOSARTAN POTASSIUM 50 MG TABLET PO SCH (10:30)
[2021-06-06] MEDS: THIAMINE HCL 100 MG TABLET (FP) PO SCH (10:30)
[2021-06-06] MEDS: amLODIPine BESYLATE 5 MG TABLET (FP) PO SCH (10:30)
[2021-06-06] MEDS: RANOLAZINE E.R. 500 MG TABLET (FP) PO SCH ×2 (10:30→21:31)
[2021-06-06] MEDS: FINASTERIDE 5 MG TABLET (FP) PO SCH (10:30)
[2021-06-06] MEDS: BUDESONIDE/FORMETEROL FUMARATE 160/4.5 mcg INHALER IH SCH ×2 (11:52→21:32)
[2021-06-06 12:03] LABS: ANISOCYTOSIS 1+; MACROCYTOSIS 1+; OVALOCYTE 1+; PLATELET ESTIMATE DECREASED
[2021-06-06] MEDS: INSULIN SLIDING SCALE (NOVOLOG) 1 VIAL SQ SCH ×2 (12:50→17:19)
[2021-06-06] MEDS: LORazepam 1 MG TABLET PO SCH ×3 (12:51→22:43)
[2021-06-06] MEDS: GABAPENTIN 300 MG CAPSULE PO SCH ×2 (13:52→21:32)
[2021-06-06] MEDS: LORazepam 1 MG TABLET PO PRN (13:52)
[2021-06-06] MEDS: metFORMIN HCL 500 MG TABLET (FP) PO SCH (18:22)
[2021-06-06] MEDS: RIVAROXABAN 20 MG TABLET PO SCH (21:31)
[2021-06-06] MEDS: ROSUVASTATIN CA 10 MG TABLET (FP) PO SCH (21:31)
[2021-06-07] MEDS: LORazepam 1 MG TABLET PO SCH ×2 (05:46→11:35)
[2021-06-07] MEDS: GABAPENTIN 300 MG CAPSULE PO SCH ×3 (07:41→22:07)
[2021-06-07] MEDS: INSULIN SLIDING SCALE (NOVOLOG) 1 VIAL SQ SCH ×2 (07:41→11:28)
[2021-06-07] MEDS: metFORMIN HCL 500 MG TABLET (FP) PO SCH ×2 (07:41→17:12)
[2021-06-07 08:14] LABS: HEMATOCRIT 29.4 % (35.4-49); HEMOGLOBIN 9.9 GM/dL (11.7-16.9); MCH 31.4 pg (25.7-33.7); MCHC 33.8 g/dl (32.0-35.9); MEAN CELL VOLUME 92.9 fl (80-96); MEAN PLT VOLUME 6.7 fl (7.5-11.1); PLATELET COUNT 146 10^3/uL (134-434); RBC 3.17 M/mm3 (4.00-5.60); RDW 13.8 % (11.9-15.9); WHITE BLOOD COUNT 6.2 K/mm3 (4.0-10.0)
[2021-06-07 08:46] LABS: ALBUMIN 2.7 g/dl (3.4-5.0); MAGNESIUM 1.5 mg/dL (1.8-2.4)
[2021-06-07 08:47] LABS: CALCIUM 8.2 mg/dL (8.5-10.1)
[2021-06-07 08:49] LABS: CREATININE 0.5 mg/dL (0.55-1.3)
[2021-06-07 08:50] LABS: BILIRUBIN,TOTAL 0.9 mg/dL (0.2-1)
[2021-06-07 08:51] LABS: TOT PROT 5.2 g/dl (6.4-8.2)
[2021-06-07] MEDS: ESCITALOPRAM OXALATE 10 MG TABLET PO SCH ×2 (09:12→22:08)
[2021-06-07] MEDS: amLODIPine BESYLATE 5 MG TABLET (FP) PO SCH (09:12)
[2021-06-07] MEDS: FINASTERIDE 5 MG TABLET (FP) PO SCH (09:12)
[2021-06-07] MEDS: TAMSULOSIN HCL 0.4 MG CAP PO SCH (09:12)
[2021-06-07] MEDS: MULTIVITAMINS (DAILY MVI) TABLET (FP) PO SCH (09:12)
[2021-06-07] MEDS: BUDESONIDE/FORMETEROL FUMARATE 160/4.5 mcg INHALER IH SCH ×2 (09:12→22:08)
[2021-06-07] MEDS: RANOLAZINE E.R. 500 MG TABLET (FP) PO SCH ×2 (09:12→22:06)
[2021-06-07] MEDS: PANTOPRAZOLE 40 MG TABLET PO SCH (09:12)
[2021-06-07] MEDS: MONTELUKAST NA 10 MG TABLET PO SCH (09:12)
[2021-06-07] MEDS: LOSARTAN POTASSIUM 50 MG TABLET PO SCH (09:12)
[2021-06-07] MEDS: THIAMINE HCL 100 MG TABLET (FP) PO SCH (09:12)
[2021-06-07] MEDS: SODIUM CHLORIDE 0.45% 1,000 ML with POTASSIUM CHLORIDE 20 MEQ IV SCH (09:45)
[2021-06-07 11:33] LABS: ANISOCYTOSIS 0; MACROCYTOSIS 0; PLATELET ESTIMATE DECREASED
[2021-06-07] MEDS ORDERED: ALBUTEROL SO4 0.083% IH SOL 2.5 MG/3 ML VIAL.NEB. NEB PRN (15:22)
[2021-06-07] MEDS ORDERED: LORazepam 0.5 MG TABLET PO PRN (15:24)
[2021-06-07] MEDS: methylPREDNISolone NA SUCC 40 MG/1 ML VIAL IVPUSH SCH ×2 (15:45→17:12)
[2021-06-07] MEDS: RIVAROXABAN 20 MG TABLET PO SCH (17:12)
[2021-06-07] MEDS: INSULIN (NOVOLOG) ASPART 100 UNITS/ML 10ML VIAL SQ SCH ×2 (17:12→22:08)
[2021-06-07 19:01] VITALS: BMI 28.8
[2021-06-07] MEDS: LORazepam 1 MG TABLET PO PRN (22:06)
[2021-06-07] MEDS: ROSUVASTATIN CA 10 MG TABLET (FP) PO SCH (22:08)
[2021-06-08] MEDS: methylPREDNISolone NA SUCC 40 MG/1 ML VIAL IVPUSH SCH ×2 (02:23→09:41)
[2021-06-08] MEDS: SODIUM CHLORIDE 0.45% 1,000 ML with POTASSIUM CHLORIDE 20 MEQ IV SCH ×3 (02:30→16:26)
[2021-06-08] MEDS ORDERED: LORazepam 1 MG TABLET PO SCH (05:00)
[2021-06-08] MEDS: metFORMIN HCL 500 MG TABLET (FP) PO SCH ×2 (06:34→16:21)
[2021-06-08] MEDS: GABAPENTIN 300 MG CAPSULE PO SCH ×3 (06:34→21:16)
[2021-06-08] MEDS: INSULIN (NOVOLOG) ASPART 100 UNITS/ML 10ML VIAL SQ SCH ×4 (06:34→21:21)
[2021-06-08 08:20] LABS: BASO % 0.1 % (0-2.0); HEMATOCRIT 30.6 % (35.4-49); HEMOGLOBIN 10.3 GM/dL (11.7-16.9); LYMPH % 8.6 % (8-40); MCH 31.6 pg (25.7-33.7); MCHC 33.8 g/dl (32.0-35.9); MEAN CELL VOLUME 93.6 fl (80-96); MEAN PLT VOLUME 7.1 fl (7.5-11.1); NEUT % 86.3 % (42.8-82.8); PLATELET COUNT 170 10^3/uL (134-434); RBC 3.27 M/mm3 (4.00-5.60); RDW 13.9 % (11.9-15.9); WHITE BLOOD COUNT 8.7 K/mm3 (4.0-10.0)
[2021-06-08 08:37] LABS: CALCIUM 8.9 mg/dL (8.5-10.1)
[2021-06-08 08:38] LABS: ALBUMIN 2.8 g/dl (3.4-5.0); BLOOD UREA NITROGEN 9.9 mg/dL (7-18)
[2021-06-08 08:41] LABS: CREATININE 0.7 mg/dL (0.55-1.3)
[2021-06-08 08:43] LABS: TOT PROT 5.8 g/dl (6.4-8.2)
[2021-06-08] MEDS ORDERED: PT OWN MED DRAWER 7, Y5N ONE (09:30)
[2021-06-08] MEDS: ESCITALOPRAM OXALATE 10 MG TABLET PO SCH ×2 (09:33→21:16)
[2021-06-08] MEDS: RANOLAZINE E.R. 500 MG TABLET (FP) PO SCH ×2 (09:33→21:16)
[2021-06-08] MEDS: MULTIVITAMINS (DAILY MVI) TABLET (FP) PO SCH (09:33)
[2021-06-08] MEDS: amLODIPine BESYLATE 5 MG TABLET (FP) PO SCH (09:33)
[2021-06-08] MEDS: MONTELUKAST NA 10 MG TABLET PO SCH (09:33)
[2021-06-08] MEDS: THIAMINE HCL 100 MG TABLET (FP) PO SCH (09:33)
[2021-06-08] MEDS: FINASTERIDE 5 MG TABLET (FP) PO SCH (09:33)
[2021-06-08] MEDS: TAMSULOSIN HCL 0.4 MG CAP PO SCH (09:34)
[2021-06-08] MEDS: LOSARTAN POTASSIUM 50 MG TABLET PO SCH (09:40)
[2021-06-08] MEDS: PANTOPRAZOLE 40 MG TABLET PO SCH (09:40)
[2021-06-08] MEDS: BUDESONIDE/FORMETEROL FUMARATE 160/4.5 mcg INHALER IH SCH ×2 (09:41→21:17)
[2021-06-08] MEDS ORDERED: INSULIN (NOVOLOG) ASPART 100 UNITS/ML 10ML VIAL ONE (11:43)
[2021-06-08] MEDS: RIVAROXABAN 20 MG TABLET PO SCH (17:12)
[2021-06-08] MEDS: ROSUVASTATIN CA 10 MG TABLET (FP) PO SCH (21:16)
[2021-06-09] MEDS ORDERED: LORazepam 0.5 MG TABLET PO PRN
[2021-06-09] MEDS ORDERED: LORazepam 0.5 MG TABLET PO SCH (05:00)
[2021-06-09] MEDS: ALBUTEROL SO4 HFA INHALER IH PRN (05:00)
[2021-06-09] MEDS: GABAPENTIN 300 MG CAPSULE PO SCH ×3 (05:28→21:41)
[2021-06-09] MEDS: metFORMIN HCL 500 MG TABLET (FP) PO SCH ×2 (06:09→17:07)
[2021-06-09] MEDS: INSULIN (NOVOLOG) ASPART 100 UNITS/ML 10ML VIAL SQ SCH ×4 (06:09→21:46)
[2021-06-09] MEDS: RANOLAZINE E.R. 500 MG TABLET (FP) PO SCH ×2 (09:06→21:41)
[2021-06-09] MEDS: MULTIVITAMINS (DAILY MVI) TABLET (FP) PO SCH (09:06)
[2021-06-09] MEDS: MONTELUKAST NA 10 MG TABLET PO SCH (09:06)
[2021-06-09] MEDS: FINASTERIDE 5 MG TABLET (FP) PO SCH (09:07)
[2021-06-09] MEDS: PANTOPRAZOLE 40 MG TABLET PO SCH (09:07)
[2021-06-09] MEDS: THIAMINE HCL 100 MG TABLET (FP) PO SCH (09:07)
[2021-06-09] MEDS: LOSARTAN POTASSIUM 50 MG TABLET PO SCH (09:07)
[2021-06-09] MEDS: amLODIPine BESYLATE 5 MG TABLET (FP) PO SCH (09:07)
[2021-06-09] MEDS: TAMSULOSIN HCL 0.4 MG CAP PO SCH (09:07)
[2021-06-09] MEDS: ESCITALOPRAM OXALATE 10 MG TABLET PO SCH ×2 (09:07→21:41)
[2021-06-09] MEDS: ACETAMINOPHEN 325 MG TABLET (FP) PO PRN ×2 (09:08→17:13)
[2021-06-09] MEDS: oxyCODONE HCL 5 MG TABLET PO PRN ×2 (09:09→17:13)
[2021-06-09] MEDS: BUDESONIDE/FORMETEROL FUMARATE 160/4.5 mcg INHALER IH SCH ×2 (09:15→21:42)
[2021-06-09] MEDS: SODIUM CHLORIDE 0.45% 1,000 ML with POTASSIUM CHLORIDE 20 MEQ IV SCH (09:54)
[2021-06-09] MEDS: RIVAROXABAN 20 MG TABLET PO SCH (17:07)
[2021-06-09] MEDS ORDERED: INSULIN (NOVOLOG) ASPART 100 UNITS/ML 10ML VIAL ONE (17:08)
[2021-06-09] MEDS: ROSUVASTATIN CA 10 MG TABLET (FP) PO SCH (21:41)
[2021-06-10] MEDS: oxyCODONE HCL 5 MG TABLET PO PRN ×2 (03:05→11:04)
[2021-06-10] MEDS ORDERED: LORazepam 0.5 MG TABLET PO ONE (05:00)
[2021-06-10] MEDS: metFORMIN HCL 500 MG TABLET (FP) PO SCH ×2 (06:03→17:29)
[2021-06-10] MEDS: GABAPENTIN 300 MG CAPSULE PO SCH ×3 (06:03→21:01)
[2021-06-10] MEDS: INSULIN (NOVOLOG) ASPART 100 UNITS/ML 10ML VIAL SQ SCH ×4 (06:05→21:02)
[2021-06-10] MEDS ORDERED: PT OWN MED DRAWER 7, Y5N ONE ×2 (10:45→10:50)
[2021-06-10] MEDS: LOSARTAN POTASSIUM 50 MG TABLET PO SCH (10:48)
[2021-06-10] MEDS: TAMSULOSIN HCL 0.4 MG CAP PO SCH (10:50)
[2021-06-10] MEDS: FINASTERIDE 5 MG TABLET (FP) PO SCH (10:51)
[2021-06-10] MEDS: RANOLAZINE E.R. 500 MG TABLET (FP) PO SCH ×2 (10:51→21:01)
[2021-06-10] MEDS: MONTELUKAST NA 10 MG TABLET PO SCH (10:51)
[2021-06-10] MEDS: PANTOPRAZOLE 40 MG TABLET PO SCH (10:51)
[2021-06-10] MEDS: ESCITALOPRAM OXALATE 10 MG TABLET PO SCH ×2 (10:51→21:01)
[2021-06-10] MEDS: THIAMINE HCL 100 MG TABLET (FP) PO SCH (10:52)
[2021-06-10] MEDS: MULTIVITAMINS (DAILY MVI) TABLET (FP) PO SCH (10:52)
[2021-06-10] MEDS: BUDESONIDE/FORMETEROL FUMARATE 160/4.5 mcg INHALER IH SCH ×2 (10:52→21:02)
[2021-06-10] MEDS: SODIUM CHLORIDE 0.45% 1,000 ML with POTASSIUM CHLORIDE 20 MEQ IV SCH ×2 (10:56→20:07)
[2021-06-10] MEDS: ACETAMINOPHEN 325 MG TABLET (FP) PO PRN (11:05)
[2021-06-10] MEDS: amLODIPine BESYLATE 5 MG TABLET (FP) PO SCH (14:13)
[2021-06-10] MEDS: RIVAROXABAN 20 MG TABLET PO SCH (17:29)
[2021-06-10] MEDS: ROSUVASTATIN CA 10 MG TABLET (FP) PO SCH (21:01)
[2021-06-11] MEDS: ACETAMINOPHEN 325 MG TABLET (FP) PO PRN (01:24)
[2021-06-11] MEDS: GABAPENTIN 300 MG CAPSULE PO SCH ×3 (06:07→21:14)
[2021-06-11] MEDS: metFORMIN HCL 500 MG TABLET (FP) PO SCH ×2 (06:07→17:44)
[2021-06-11] MEDS: INSULIN (NOVOLOG) ASPART 100 UNITS/ML 10ML VIAL SQ SCH ×4 (06:07→21:17)
[2021-06-11 08:35] LABS: HEMATOCRIT 30.6 % (35.4-49); HEMOGLOBIN 10.6 GM/dL (11.7-16.9); MCHC 34.7 g/dl (32.0-35.9); MEAN CELL VOLUME 92.4 fl (80-96); MEAN PLT VOLUME 7.5 fl (7.5-11.1); PLATELET COUNT 257 10^3/uL (134-434); RBC 3.32 M/mm3 (4.00-5.60); WHITE BLOOD COUNT 7.1 K/mm3 (4.0-10.0)
[2021-06-11 09:20] LABS: ALBUMIN 2.7 g/dl (3.4-5.0)
[2021-06-11 09:21] LABS: BLOOD UREA NITROGEN 6.9 mg/dL (7-18)
[2021-06-11 09:23] LABS: CREATININE 0.5 mg/dL (0.55-1.3)
[2021-06-11 09:25] LABS: TOT PROT 5.3 g/dl (6.4-8.2)
[2021-06-11] MEDS: MULTIVITAMINS (DAILY MVI) TABLET (FP) PO SCH (09:42)
[2021-06-11] MEDS: oxyCODONE HCL 5 MG TABLET PO PRN ×2 (09:42→19:46)
[2021-06-11] MEDS: LOSARTAN POTASSIUM 50 MG TABLET PO SCH (09:42)
[2021-06-11] MEDS: TAMSULOSIN HCL 0.4 MG CAP PO SCH (09:42)
[2021-06-11] MEDS: RANOLAZINE E.R. 500 MG TABLET (FP) PO SCH ×2 (09:42→21:14)
[2021-06-11] MEDS: THIAMINE HCL 100 MG TABLET (FP) PO SCH (09:43)
[2021-06-11] MEDS: ESCITALOPRAM OXALATE 10 MG TABLET PO SCH ×2 (09:43→21:15)
[2021-06-11] MEDS: FINASTERIDE 5 MG TABLET (FP) PO SCH (09:43)
[2021-06-11] MEDS: MONTELUKAST NA 10 MG TABLET PO SCH (09:43)
[2021-06-11] MEDS: PANTOPRAZOLE 40 MG TABLET PO SCH (09:43)
[2021-06-11] MEDS: BUDESONIDE/FORMETEROL FUMARATE 160/4.5 mcg INHALER IH SCH ×2 (09:46→21:15)
[2021-06-11 10:49] LABS: ANISOCYTOSIS 1+; MACROCYTOSIS 1+; OVALOCYTE 1+; PLATELET ESTIMATE NORMAL
[2021-06-11] MEDS: SODIUM CHLORIDE 0.45% 1,000 ML with POTASSIUM CHLORIDE 20 MEQ IV SCH (14:47)
[2021-06-11] MEDS ORDERED: INSULIN (NOVOLOG) ASPART 100 UNITS/ML 10ML VIAL ONE (17:34)
[2021-06-11] MEDS: RIVAROXABAN 20 MG TABLET PO SCH (17:44)
[2021-06-11] MEDS: ROSUVASTATIN CA 10 MG TABLET (FP) PO SCH (21:14)
[2021-06-12] MEDS: GABAPENTIN 300 MG CAPSULE PO SCH ×3 (05:23→21:06)
[2021-06-12] MEDS: INSULIN (NOVOLOG) ASPART 100 UNITS/ML 10ML VIAL SQ SCH ×4 (06:09→21:14)
[2021-06-12] MEDS: metFORMIN HCL 500 MG TABLET (FP) PO SCH ×2 (06:09→17:08)
[2021-06-12] MEDS ORDERED: PT OWN MED DRAWER 7, Y5N ONE (08:58)
[2021-06-12] MEDS: ESCITALOPRAM OXALATE 10 MG TABLET PO SCH ×2 (09:24→21:06)
[2021-06-12] MEDS: THIAMINE HCL 100 MG TABLET (FP) PO SCH (09:24)
[2021-06-12] MEDS: PANTOPRAZOLE 40 MG TABLET PO SCH (09:24)
[2021-06-12] MEDS: MONTELUKAST NA 10 MG TABLET PO SCH (09:24)
[2021-06-12] MEDS: RANOLAZINE E.R. 500 MG TABLET (FP) PO SCH ×2 (09:24→21:06)
[2021-06-12] MEDS: LOSARTAN POTASSIUM 50 MG TABLET PO SCH (09:25)
[2021-06-12] MEDS: BUDESONIDE/FORMETEROL FUMARATE 160/4.5 mcg INHALER IH SCH ×2 (09:25→21:06)
[2021-06-12] MEDS: TAMSULOSIN HCL 0.4 MG CAP PO SCH (09:25)
[2021-06-12] MEDS: MULTIVITAMINS (DAILY MVI) TABLET (FP) PO SCH (09:25)
[2021-06-12] MEDS: FINASTERIDE 5 MG TABLET (FP) PO SCH (09:25)
[2021-06-12] MEDS: oxyCODONE HCL 5 MG TABLET PO PRN ×3 (09:30→21:09)
[2021-06-12] MEDS: ACETAMINOPHEN 325 MG TABLET (FP) PO PRN ×2 (09:30→15:47)
[2021-06-12] MEDS: SODIUM CHLORIDE 0.45% 1,000 ML with POTASSIUM CHLORIDE 20 MEQ IV SCH ×2 (09:45→10:51)
[2021-06-12] MEDS: RIVAROXABAN 20 MG TABLET PO SCH (17:10)
[2021-06-12] MEDS: ROSUVASTATIN CA 10 MG TABLET (FP) PO SCH (21:06)
[2021-06-12 21:38] VITALS: BP 125/77; PULSE 85; TEMP 97.9
== END 2021-06-13 05:30 | DRG 896 ==
LOC: JER 17:02 → JERBED 21:10 → J8W 06-06 00:17
PROVIDERS: ADMIT Internal Medicine; ATTEND Internal Medicine
PROC: 0CJS8ZZ Inspection of Larynx, Via Natural or Artificial Opening Endoscopic (ICD-10-PCS; principal; 2021-06-09)
DX: F10.229 Alcohol dependence with intoxication, unspecified (principal); G93.41 Metabolic encephalopathy; I50.32 Chronic diastolic (congestive) heart failure; I48.21 Permanent atrial fibrillation; G95.9 Disease of spinal cord, unspecified; J44.1 Chronic obstructive pulmonary disease with (acute) exacerbation; R45.6 Violent behavior; R33.9 Retention of urine, unspecified; M48.061 Spinal stenosis, lumbar region without neurogenic claudication; R13.10 Dysphagia, unspecified; R49.0 Dysphonia; I25.10 Atherosclerotic heart disease of native coronary artery without angina pectoris; E78.5 Hyperlipidemia, unspecified; K21.9 Gastro-esophageal reflux disease without esophagitis; I10 Essential (primary) hypertension; R00.0 Tachycardia, unspecified; E11.42 Type 2 diabetes mellitus with diabetic polyneuropathy
CPT/HCPCS: 36415; 70450-TC; 71045-TC-FY; 72125-TC; 74230-TC-FY; 80053; 80307; 81003; 82140; 82550; 82607; 82962; 83735; 84100; 84443; 84484; 85025; 85610; 85730; 86780; 87086; 92611-GN; 93005; 93010; 94640; 94761; 97116-GP; 97161-GP; 99285-25; C9803; E0372; U0003; U0005

== ENCOUNTER 2021-06-13 13:25 | Inpatient (IN) | payer OTHER, BC ==
[2021-06-13 16:22] LABS: HEMATOCRIT 32.2 % (35.4-49); HEMOGLOBIN 10.9 GM/dL (11.7-16.9); MCH 30.9 pg (25.7-33.7); MCHC 33.7 g/dl (32.0-35.9); MEAN CELL VOLUME 91.7 fl (80-96); MEAN PLT VOLUME 6.4 fl (7.5-11.1); PLATELET COUNT 251 10^3/uL (134-434); RBC 3.51 M/mm3 (4.00-5.60); RDW 13.8 % (11.9-15.9); WHITE BLOOD COUNT 6.6 K/mm3 (4.0-10.0)
[2021-06-13 16:39] LABS: ALBUMIN 2.8 g/dl (3.4-5.0); BLOOD UREA NITROGEN 5.2 mg/dL (7-18); CALCIUM 9.1 mg/dL (8.5-10.1)
[2021-06-13 16:42] LABS: CREATININE 0.6 mg/dL (0.55-1.3)
[2021-06-13 16:44] LABS: TOT PROT 5.7 g/dl (6.4-8.2)
[2021-06-13 16:57] LABS: ANISOCYTOSIS 1+; MACROCYTOSIS 1+; PLATELET ESTIMATE NORMAL
[2021-06-14] MEDS ORDERED: PATIENT'S OWN MEDICATION (NON-FORMULARY) (Albuterol Sulfate [Proair Respiclick] 90 MCG Aer IH PRN (00:56)
[2021-06-14] MEDS ORDERED: ALBUTEROL SO4 0.083% IH SOL 2.5 MG/3 ML VIAL.NEB. NEB PRN (00:56)
[2021-06-14] MEDS ORDERED: ACETAMINOPHEN 325 MG TABLET (FP) PO PRN (00:56)
[2021-06-14 02:58] VITALS: BMI 28.0
[2021-06-14] MEDS: INSULIN SLIDING SCALE (NOVOLOG) 1 VIAL SQ SCH ×4 (06:02→21:32)
[2021-06-14] MEDS: metFORMIN HCL 500 MG TABLET (FP) PO SCH ×2 (06:02→16:36)
[2021-06-14] MEDS: GABAPENTIN 300 MG CAPSULE PO SCH ×3 (06:02→21:29)
[2021-06-14] MEDS: oxyCODONE HCL 5 MG TABLET PO PRN ×3 (06:25→23:08)
[2021-06-14] MEDS: TAMSULOSIN HCL 0.4 MG CAP PO SCH (07:50)
[2021-06-14] MEDS ORDERED: PT OWN MED DRAWER 7, Y5N ONE (09:18)
[2021-06-14] MEDS: PANTOPRAZOLE 40 MG TABLET PO SCH (09:19)
[2021-06-14] MEDS: RANOLAZINE E.R. 500 MG TABLET (FP) PO SCH ×2 (09:19→21:29)
[2021-06-14] MEDS: ESCITALOPRAM OXALATE 10 MG TABLET PO SCH (09:19)
[2021-06-14] MEDS: THIAMINE HCL 100 MG TABLET (FP) PO SCH (09:19)
[2021-06-14] MEDS: MULTIVITAMINS (DAILY MVI) TABLET (FP) PO SCH (09:20)
[2021-06-14] MEDS: LOSARTAN POTASSIUM 50 MG TABLET PO SCH (09:20)
[2021-06-14] MEDS: FINASTERIDE 5 MG TABLET (FP) PO SCH (09:20)
[2021-06-14] MEDS: amLODIPine BESYLATE 5 MG TABLET (FP) PO SCH (09:20)
[2021-06-14] MEDS: TIOTROPIUM BROMIDE 2.5 MCG (SPIRIVA) RESPIMAT INHALER IH SCH (09:21)
[2021-06-14] MEDS: BUDESONIDE/FORMETEROL FUMARATE 160/4.5 mcg INHALER IH SCH ×2 (09:21→21:31)
[2021-06-14] MEDS: FAMOTIDINE 40 MG TABLET PO SCH (11:24)
[2021-06-14] MEDS: RIVAROXABAN 20 MG TABLET PO SCH (17:39)
[2021-06-14] MEDS ORDERED: MONTELUKAST NA 10 MG TABLET PO SCH (22:00)
[2021-06-14] MEDS ORDERED: ROSUVASTATIN CA 10 MG TABLET (FP) PO SCH (22:00)
[2021-06-15] MEDS: metFORMIN HCL 500 MG TABLET (FP) PO SCH ×2 (06:38→16:49)
[2021-06-15] MEDS: INSULIN SLIDING SCALE (NOVOLOG) 1 VIAL SQ SCH ×3 (06:38→16:49)
[2021-06-15] MEDS: GABAPENTIN 300 MG CAPSULE PO SCH ×2 (06:38→13:59)
[2021-06-15] MEDS: TAMSULOSIN HCL 0.4 MG CAP PO SCH (08:24)
[2021-06-15] MEDS ORDERED: PT OWN MED DRAWER 7, Y5N ONE (09:46)
[2021-06-15] MEDS: FAMOTIDINE 40 MG TABLET PO SCH (10:04)
[2021-06-15] MEDS: FINASTERIDE 5 MG TABLET (FP) PO SCH (10:04)
[2021-06-15] MEDS: RANOLAZINE E.R. 500 MG TABLET (FP) PO SCH (10:04)
[2021-06-15] MEDS: PANTOPRAZOLE 40 MG TABLET PO SCH (10:04)
[2021-06-15] MEDS: THIAMINE HCL 100 MG TABLET (FP) PO SCH (10:04)
[2021-06-15] MEDS: ESCITALOPRAM OXALATE 10 MG TABLET PO SCH (10:05)
[2021-06-15] MEDS: MULTIVITAMINS (DAILY MVI) TABLET (FP) PO SCH (10:05)
[2021-06-15] MEDS: oxyCODONE HCL 5 MG TABLET PO PRN ×2 (10:05→16:49)
[2021-06-15] MEDS: amLODIPine BESYLATE 5 MG TABLET (FP) PO SCH (10:08)
[2021-06-15] MEDS: LOSARTAN POTASSIUM 50 MG TABLET PO SCH (10:09)
[2021-06-15] MEDS: BUDESONIDE/FORMETEROL FUMARATE 160/4.5 mcg INHALER IH SCH (10:10)
[2021-06-15] MEDS: TIOTROPIUM BROMIDE 2.5 MCG (SPIRIVA) RESPIMAT INHALER IH SCH (10:10)
[2021-06-15 16:02] VITALS: BP 92/54; PULSE 76; TEMP 98.2
[2021-06-15] MEDS: RIVAROXABAN 20 MG TABLET PO SCH (17:00)
== END 2021-06-15 17:30 | DRG 897 ==
LOC: JER 13:25 → JERBED 14:53 → J5S 23:08
PROVIDERS: ADMIT Specialist; ATTEND Specialist
DX: F10.129 Alcohol abuse with intoxication, unspecified (principal); E11.9 Type 2 diabetes mellitus without complications; J44.9 Chronic obstructive pulmonary disease, unspecified; I48.91 Unspecified atrial fibrillation; I10 Essential (primary) hypertension; E78.5 Hyperlipidemia, unspecified; R33.9 Retention of urine, unspecified; M54.9 Dorsalgia, unspecified; K21.9 Gastro-esophageal reflux disease without esophagitis; I25.10 Atherosclerotic heart disease of native coronary artery without angina pectoris; M54.50 Low back pain, unspecified; R41.0 Disorientation, unspecified
CPT/HCPCS: 36415; 80053; 82962; 85025; 93005; 93010; 93971-TC; 97116-GP; 97161-GP; 99285-25; C9803; U0003; U0005

== ENCOUNTER 2021-08-24 14:12 | Inpatient (IN) | payer OTHER, BC ==
[2021-08-24] MEDS ORDERED: SODIUM CHLORIDE 0.9% 500 ML INFUS.BAG IV ONE (16:55)
[2021-08-24 17:26] LABS: HEMATOCRIT 37.9 % (35.4-49); HEMOGLOBIN 12.4 GM/dL (11.7-16.9); MCH 29.5 pg (25.7-33.7); MCHC 32.8 g/dl (32.0-35.9); MEAN CELL VOLUME 89.9 fl (80-96); MEAN PLT VOLUME 6.9 fl (7.5-11.1); PLATELET COUNT 160 10^3/uL (134-434); RBC 4.22 M/mm3 (4.00-5.60); RDW 16.9 % (11.9-15.9); WHITE BLOOD COUNT 5.5 K/mm3 (4.0-10.0)
[2021-08-24 17:35] LABS: INR 1.34 (0.83-1.09); PROTHROMBIN TIME (PATIENT) 15.5 SEC (9.7-13.0)
[2021-08-24 17:37] LABS: ACTIVATED PTT 27.7 SECONDS (25.2-36.5)
[2021-08-24 17:42] LABS: CHLORIDE 98 mmol/L (98-107); SODIUM 137 mmol/L (136-145)
[2021-08-24 17:44] LABS: CALCIUM 8.8 mg/dL (8.5-10.1)
[2021-08-24 17:45] LABS: ALBUMIN 3.2 g/dl (3.4-5.0); ANION GAP 13 MMOL/L (8-16); BLOOD UREA NITROGEN 12.2 mg/dL (7-18); CO2 25 mmol/L (21-32); GLUCOSE,RANDOM 394 mg/dL (74-106)
[2021-08-24 17:48] LABS: CREATININE 0.7 mg/dL (0.55-1.3); SGOT/AST 21 U/L (15-37); SGPT/ALT 33 U/L (13-61)
[2021-08-24 17:50] LABS: BILIRUBIN,TOTAL 0.6 mg/dL (0.2-1); TOT PROT 6.3 g/dl (6.4-8.2)
[2021-08-24 17:51] LABS: ALK PHOS 62 U/L (45-117)
[2021-08-24 17:53] LABS: N-TERMINAL BNP 1988.6 pg/ml (5-450)
[2021-08-24 18:02] LABS: VENOUS BASE EXCESS -4.3 mmol/L (-2-2); VENOUS PH 7.32 (7.310-7.410)
[2021-08-24 18:42] LABS: PLATELET ESTIMATE NORMAL
[2021-08-24] MEDS ORDERED: GABAPENTIN 300 MG CAPSULE PO PRN (21:09)
[2021-08-24] MEDS ORDERED: ACETAMINOPHEN 325 MG TABLET (FP) PO PRN ×2 (21:12→22:06)
[2021-08-24] MEDS ORDERED: ACETAMINOPHEN 500 MG TABLET (FP) PO ONE (21:13)
[2021-08-24] MEDS ORDERED: ACETAMINOPHEN 500 MG TABLET (FP) ONE (21:14)
[2021-08-24] MEDS ORDERED: DEXAMETHASONE SOD PHOSPHATE 10 MG/1 ML VIAL ONE (21:38)
[2021-08-24] MEDS ORDERED: PIPERACILLIN/TAZOB 3.375 GM 3.375 GM/50 ML BAG IVPB ONE (21:39)
[2021-08-24] MEDS ORDERED: ESCITALOPRAM OXALATE 10 MG TABLET ONE (21:39)
[2021-08-24] MEDS ORDERED: metFORMIN HCL 500 MG TABLET (FP) ONE (21:39)
[2021-08-24] MEDS: DEXAMETHASONE SOD PHOSPHATE 10 MG/1 ML VIAL IVPUSH SCH (22:13)
[2021-08-24] MEDS: PIPERACILLIN/TAZOB 3.375 GM 3.375 GM in DEXTROSE 5%-WATER - 50 ML IVPB SCH (22:13)
[2021-08-24] MEDS: metFORMIN HCL 500 MG TABLET (FP) PO SCH (23:08)
[2021-08-24] MEDS: ESCITALOPRAM OXALATE 10 MG TABLET PO SCH (23:08)
[2021-08-24] MEDS: metoPROLOL SUCCINATE 25 MG TAB.SR.24H (FP) PO SCH (23:08)
[2021-08-24] MEDS: BUDESONIDE/FORMETEROL FUMARATE 160/4.5 mcg INHALER IH SCH (23:08)
[2021-08-24] MEDS: ROSUVASTATIN CA 10 MG TABLET PO SCH (23:08)
[2021-08-24] MEDS: RANOLAZINE E.R. 500 MG TABLET (FP) PO SCH (23:08)
[2021-08-24] MEDS ORDERED: oxyCODONE HCL 5 MG TABLET ONE ×2 (23:18→23:27)
[2021-08-24] MEDS ORDERED: GABAPENTIN 100 MG CAPSULE ONE ×2 (23:18→23:27)
[2021-08-24] MEDS: INSULIN (NOVOLOG) ASPART 100 UNITS/ML 10ML VIAL SQ SCH (23:31)
[2021-08-24] MEDS: oxyCODONE HCL 5 MG TABLET PO PRN (23:32)
[2021-08-25] MEDS ORDERED: PIPERACILLIN/TAZOB 3.375 GM 3.375 GM/50 ML BAG IVPB ONE ×2 (03:14→08:10)
[2021-08-25] MEDS: PIPERACILLIN/TAZOB 3.375 GM 3.375 GM in DEXTROSE 5%-WATER - 50 ML IVPB SCH ×2 (04:07→09:49)
[2021-08-25] MEDS ORDERED: TAMSULOSIN HCL 0.4 MG CAP ONE (07:42)
[2021-08-25] MEDS: INSULIN (NOVOLOG) ASPART 100 UNITS/ML 10ML VIAL SQ SCH ×3 (07:47→16:39)
[2021-08-25] MEDS: TAMSULOSIN HCL 0.4 MG CAP PO SCH (07:48)
[2021-08-25] MEDS ORDERED: amLODIPine BESYLATE 5 MG TABLET (FP) ONE (08:07)
[2021-08-25] MEDS ORDERED: FAMOTIDINE 20 MG TABLET ONE (08:08)
[2021-08-25] MEDS ORDERED: PANTOPRAZOLE 20 MG TABLET PO ONE (08:08)
[2021-08-25] MEDS ORDERED: metFORMIN HCL 500 MG TABLET (FP) ONE ×2 (08:08→23:52)
[2021-08-25] MEDS ORDERED: LOSARTAN POTASSIUM 50 MG TABLET ONE (08:08)
[2021-08-25] MEDS ORDERED: DEXAMETHASONE SOD PHOSPHATE 4 MG/1 ML VIAL ONE (08:08)
[2021-08-25] MEDS ORDERED: MONTELUKAST NA 10 MG TABLET ONE (08:09)
[2021-08-25] MEDS ORDERED: ESCITALOPRAM OXALATE 10 MG TABLET ONE ×2 (08:09→23:52)
[2021-08-25 09:07] LABS: HEMATOCRIT 37.1 % (35.4-49); HEMOGLOBIN 11.9 GM/dL (11.7-16.9); MCH 29.3 pg (25.7-33.7); MCHC 32.2 g/dl (32.0-35.9); MEAN CELL VOLUME 91.1 fl (80-96); MEAN PLT VOLUME 6.8 fl (7.5-11.1); PLATELET COUNT 176 10^3/uL (134-434); RBC 4.07 M/mm3 (4.00-5.60); RDW 17.1 % (11.9-15.9); WHITE BLOOD COUNT 6.1 K/mm3 (4.0-10.0)
[2021-08-25 09:26] LABS: CHLORIDE 106 mmol/L (98-107); SODIUM 141 mmol/L (136-145)
[2021-08-25 09:28] LABS: ANION GAP 10 MMOL/L (8-16); CALCIUM 8.9 mg/dL (8.5-10.1); CO2 25 mmol/L (21-32); GLUCOSE,RANDOM 248 mg/dL (74-106)
[2021-08-25 09:31] LABS: CREATININE 0.7 mg/dL (0.55-1.3); SGOT/AST 14 U/L (15-37)
[2021-08-25 09:32] LABS: SGPT/ALT 30 U/L (13-61)
[2021-08-25 09:33] LABS: BILIRUBIN,TOTAL 0.7 mg/dL (0.2-1)
[2021-08-25 09:34] LABS: ALK PHOS 49 U/L (45-117)
[2021-08-25 09:36] LABS: LDH 232 U/L (87-246)
[2021-08-25] MEDS: amLODIPine BESYLATE 5 MG TABLET (FP) PO SCH (09:49)
[2021-08-25] MEDS: metoPROLOL SUCCINATE 25 MG TAB.SR.24H (FP) PO SCH (09:49)
[2021-08-25] MEDS: MONTELUKAST NA 10 MG TABLET PO SCH (09:49)
[2021-08-25] MEDS: TIOTROPIUM BROMIDE 2.5 MCG (SPIRIVA) RESPIMAT INHALER IH SCH (09:49)
[2021-08-25] MEDS: DEXAMETHASONE SOD PHOSPHATE 10 MG/1 ML VIAL IVPUSH SCH (09:49)
[2021-08-25] MEDS: LOSARTAN POTASSIUM 50 MG TABLET PO SCH (09:49)
[2021-08-25] MEDS: PANTOPRAZOLE 20 MG TABLET PO SCH (09:49)
[2021-08-25] MEDS: FINASTERIDE 5 MG TABLET (FP) PO SCH (09:49)
[2021-08-25] MEDS: RANOLAZINE E.R. 500 MG TABLET (FP) PO SCH (09:49)
[2021-08-25] MEDS: ESCITALOPRAM OXALATE 10 MG TABLET PO SCH ×2 (09:49→23:57)
[2021-08-25] MEDS: FAMOTIDINE 40 MG TABLET PO SCH (09:49)
[2021-08-25] MEDS: metFORMIN HCL 500 MG TABLET (FP) PO SCH ×2 (09:49→23:57)
[2021-08-25] MEDS: BUDESONIDE/FORMETEROL FUMARATE 160/4.5 mcg INHALER IH SCH (09:49)
[2021-08-25] MEDS ORDERED: REMDESIVIR 200 MG in SODIUM CHLORIDE 250 ML IVPB ONE ×2 (11:51→16:37)
[2021-08-25 12:24] LABS: ANISOCYTOSIS 1+; MACROCYTOSIS 0; PLATELET ESTIMATE NORMAL
[2021-08-25] MEDS ORDERED: ACETAMINOPHEN 325 MG TABLET (FP) ONE (16:13)
[2021-08-25] MEDS ORDERED: oxyCODONE HCL 5 MG TABLET ONE (16:14)
[2021-08-25] MEDS: oxyCODONE HCL 5 MG TABLET PO PRN (16:16)
[2021-08-26] MEDS: BUDESONIDE/FORMETEROL FUMARATE 160/4.5 mcg INHALER IH SCH ×2 (00:02→12:56)
[2021-08-26] MEDS: INSULIN (NOVOLOG) ASPART 100 UNITS/ML 10ML VIAL SQ SCH ×5 (00:18→23:30)
[2021-08-26] MEDS: RIVAROXABAN 20 MG TABLET PO SCH ×2 (00:23→17:17)
[2021-08-26] MEDS ORDERED: oxyCODONE HCL 5 MG TABLET ONE (00:27)
[2021-08-26] MEDS: oxyCODONE HCL 5 MG TABLET PO PRN ×2 (00:31→04:30)
[2021-08-26] MEDS: RANOLAZINE E.R. 500 MG TABLET (FP) PO SCH ×3 (00:32→23:32)
[2021-08-26] MEDS: ROSUVASTATIN CA 10 MG TABLET PO SCH ×2 (00:32→23:32)
[2021-08-26] MEDS ORDERED: PIPERACILLIN/TAZOBACTAM 3.375 GM VIAL IVPB ONE ×3 (01:15→17:14)
[2021-08-26] MEDS ORDERED: DEXTROSE 5%-WATER - 50 ML IVPB ONE ×3 (01:15→17:14)
[2021-08-26] MEDS: PIPERACILLIN/TAZOB 3.375 GM 3.375 GM in DEXTROSE 5%-WATER - 50 ML IVPB SCH ×5 (01:19→17:17)
[2021-08-26] MEDS ORDERED: metoPROLOL SUCCINATE 25 MG TAB.SR.24H (FP) PO ONE ×2 (04:45→06:00)
[2021-08-26] MEDS ORDERED: HALOPERIDOL LACTATE 5 MG/ML ONE (04:47)
[2021-08-26] MEDS ORDERED: HALOPERIDOL LACTATE 5 MG/ML IM ONE (04:52)
[2021-08-26 09:39] VITALS: BMI 25.7
[2021-08-26] MEDS: DEXAMETHASONE SOD PHOSPHATE 10 MG/1 ML VIAL IVPUSH SCH (11:25)
[2021-08-26] MEDS: LORazepam 2 MG/ML SDV VIAL IM PRN (11:25)
[2021-08-26] MEDS: LOSARTAN POTASSIUM 50 MG TABLET PO SCH ×2 (12:53→13:32)
[2021-08-26] MEDS: TAMSULOSIN HCL 0.4 MG CAP PO SCH (12:53)
[2021-08-26] MEDS: amLODIPine BESYLATE 5 MG TABLET (FP) PO SCH ×2 (12:54→13:32)
[2021-08-26] MEDS: metFORMIN HCL 500 MG TABLET (FP) PO SCH (12:54)
[2021-08-26] MEDS: FAMOTIDINE 40 MG TABLET PO SCH (12:55)
[2021-08-26] MEDS: PANTOPRAZOLE 20 MG TABLET PO SCH (12:55)
[2021-08-26] MEDS: FINASTERIDE 5 MG TABLET (FP) PO SCH (12:55)
[2021-08-26] MEDS: metoPROLOL SUCCINATE 25 MG TAB.SR.24H (FP) PO SCH ×4 (12:56→23:27)
[2021-08-26] MEDS: TIOTROPIUM BROMIDE 2.5 MCG (SPIRIVA) RESPIMAT INHALER IH SCH (12:56)
[2021-08-26] MEDS: REMDESIVIR 100 MG in SODIUM CHLORIDE 250 ML IVPB SCH (12:56)
[2021-08-26] MEDS: MONTELUKAST NA 10 MG TABLET PO SCH (12:56)
[2021-08-26] MEDS: ESCITALOPRAM OXALATE 10 MG TABLET PO SCH (12:57)
[2021-08-26] MEDS ORDERED: METOPROLOL TARTRATE 5 MG/5 ML VIAL ONE (13:06)
[2021-08-26] MEDS ORDERED: METOPROLOL TARTRATE 5 MG/5 ML VIAL IVPUSH ONE (14:15)
[2021-08-27] MEDS: BUDESONIDE/FORMETEROL FUMARATE 160/4.5 mcg INHALER IH SCH ×2 (00:12→10:00)
[2021-08-27] MEDS: metFORMIN HCL 500 MG TABLET (FP) PO SCH ×2 (00:14→10:00)
[2021-08-27] MEDS ORDERED: PIPERACILLIN/TAZOBACTAM 3.375 GM VIAL IVPB ONE ×2 (01:38→10:59)
[2021-08-27] MEDS ORDERED: DEXTROSE 5%-WATER - 50 ML IVPB ONE ×2 (01:38→11:00)
[2021-08-27] MEDS: PIPERACILLIN/TAZOB 3.375 GM 3.375 GM in DEXTROSE 5%-WATER - 50 ML IVPB SCH ×2 (02:34→10:00)
[2021-08-27] MEDS: LORazepam 2 MG/ML SDV VIAL IM PRN ×2 (02:35→11:06)
[2021-08-27 03:44] VITALS: TEMP 97.8
[2021-08-27 05:56] VITALS: BP 134/87; PULSE 135
[2021-08-27] MEDS: INSULIN (NOVOLOG) ASPART 100 UNITS/ML 10ML VIAL SQ SCH ×2 (06:59→12:14)
[2021-08-27] MEDS: TAMSULOSIN HCL 0.4 MG CAP PO SCH (08:30)
[2021-08-27] MEDS: TIOTROPIUM BROMIDE 2.5 MCG (SPIRIVA) RESPIMAT INHALER IH SCH (10:00)
[2021-08-27] MEDS: DEXAMETHASONE SOD PHOSPHATE 10 MG/1 ML VIAL IVPUSH SCH (10:00)
[2021-08-27] MEDS: LOSARTAN POTASSIUM 50 MG TABLET PO SCH (10:00)
[2021-08-27] MEDS: FAMOTIDINE 40 MG TABLET PO SCH (10:00)
[2021-08-27] MEDS: MONTELUKAST NA 10 MG TABLET PO SCH (10:00)
[2021-08-27] MEDS: RANOLAZINE E.R. 500 MG TABLET (FP) PO SCH (10:00)
[2021-08-27] MEDS ORDERED: ESCITALOPRAM OXALATE 10 MG TABLET PO SCH (10:00)
[2021-08-27] MEDS: FINASTERIDE 5 MG TABLET (FP) PO SCH (10:00)
[2021-08-27] MEDS: metoPROLOL SUCCINATE 25 MG TAB.SR.24H (FP) PO SCH (10:00)
[2021-08-27] MEDS: PANTOPRAZOLE 20 MG TABLET PO SCH (10:00)
[2021-08-27] MEDS: amLODIPine BESYLATE 5 MG TABLET (FP) PO SCH (10:00)
[2021-08-27] MEDS: REMDESIVIR 100 MG in SODIUM CHLORIDE 250 ML IVPB SCH (12:14)
== END 2021-08-27 19:20 | disposition left against medical advice (07) | DRG 177 ==
LOC: SUPCPDRO 14:12 → JER 14:12 → JERBED 20:08 → J4S 08-26 00:40 → J4W 08-26 05:17
PROVIDERS: ADMIT Internal Medicine; ATTEND Internal Medicine
DX: U07.1 COVID-19 (principal); J12.82 Pneumonia due to coronavirus disease 2019; G93.41 Metabolic encephalopathy; I48.20 Chronic atrial fibrillation, unspecified; J44.9 Chronic obstructive pulmonary disease, unspecified; I10 Essential (primary) hypertension; K21.9 Gastro-esophageal reflux disease without esophagitis; E11.9 Type 2 diabetes mellitus without complications; E78.00 Pure hypercholesterolemia, unspecified; J98.4 Other disorders of lung; M54.50 Low back pain, unspecified; I25.10 Atherosclerotic heart disease of native coronary artery without angina pectoris; E11.51 Type 2 diabetes mellitus with diabetic peripheral angiopathy without gangrene; I08.3 Combined rheumatic disorders of mitral, aortic and tricuspid valves; N40.0 Benign prostatic hyperplasia without lower urinary tract symptoms; M51.17 Intervertebral disc disorders with radiculopathy, lumbosacral region; M50.10 Cervical disc disorder with radiculopathy, unspecified cervical region; I65.29 Occlusion and stenosis of unspecified carotid artery
CPT/HCPCS: 36415; 71045-TC-FY; 71046-TC-FY; 71250-TC; 80053; 82550; 82803; 82962; 83615; 83880; 84443; 84484; 85025; 85379; 85610; 85730; 86140; 86480; 93005; 93010; 99285-25; C9399; C9803; J1100; U0003; U0005

== ENCOUNTER 2021-10-12 07:43 | Inpatient (IN) | payer OTHER, BC ==
[2021-10-12 09:06] LABS: HEMATOCRIT 33.5 % (35.4-49); HEMOGLOBIN 10.9 GM/dL (11.7-16.9); MCH 29.1 pg (25.7-33.7); MCHC 32.5 g/dl (32.0-35.9); MEAN CELL VOLUME 89.7 fl (80-96); MEAN PLT VOLUME 7.1 fl (7.5-11.1); PLATELET COUNT 184 10^3/uL (134-434); RBC 3.73 M/mm3 (4.00-5.60); RDW 15.5 % (11.9-15.9); WHITE BLOOD COUNT 7.8 K/mm3 (4.0-10.0)
[2021-10-12 09:17] LABS: ACTIVATED PTT 35.7 SECONDS (25.2-36.5); INR 2.38 (0.83-1.09); PROTHROMBIN TIME (PATIENT) 27.6 SEC (9.7-13.0)
[2021-10-12 09:25] LABS: CALCIUM 9.3 mg/dL (8.5-10.1)
[2021-10-12 09:26] LABS: ALBUMIN 3.5 g/dl (3.4-5.0); BLOOD UREA NITROGEN 10.5 mg/dL (7-18)
[2021-10-12 09:29] LABS: CREATININE 0.6 mg/dL (0.55-1.3)
[2021-10-12 09:31] LABS: BILIRUBIN,TOTAL 0.7 mg/dL (0.2-1)
[2021-10-12 10:40] LABS: ANISOCYTOSIS 2+; MACROCYTOSIS 1+
[2021-10-12 10:45] LABS: PLATELET ESTIMATE ADEQUATE
[2021-10-12] MEDS ORDERED: GABAPENTIN 300 MG CAPSULE PO PRN (13:24)
[2021-10-12] MEDS ORDERED: ALBUTEROL SO4 HFA INHALER IH PRN (13:29)
[2021-10-12] MEDS ORDERED: ALBUTEROL SO4 0.042% IH SOL 1.25 MG/3 ML VIAL.NEB NEB PRN (13:29)
[2021-10-12] MEDS ORDERED: methylPREDNISolone NA SUCC 40 MG/1 ML VIAL ONE ×2 (15:58→18:06)
[2021-10-12] MEDS ORDERED: CEFTRIAXONE 1 GM/50 ML BAG ONE (15:58)
[2021-10-12] MEDS ORDERED: oxyCODONE HCL 5 MG TABLET ONE (15:58)
[2021-10-12] MEDS: methylPREDNISolone NA SUCC 40 MG/1 ML VIAL IVPUSH SCH ×3 (16:10→18:38)
[2021-10-12] MEDS: CEFTRIAXONE 1 GM in DEXTROSE 5%-WATER - 50 ML IVPB SCH (16:11)
[2021-10-12] MEDS: oxyCODONE HCL 5 MG TABLET PO PRN (16:11)
[2021-10-12] MEDS: metFORMIN HCL 500 MG TABLET (FP) PO SCH (18:00)
[2021-10-12] MEDS ORDERED: metFORMIN HCL 500 MG TABLET (FP) ONE (18:06)
[2021-10-12] MEDS: metoPROLOL SUCCINATE 25 MG TAB.SR.24H (FP) PO SCH ×2 (18:40→21:21)
[2021-10-12] MEDS: ESCITALOPRAM OXALATE 10 MG TABLET PO SCH (21:21)
[2021-10-12] MEDS: RANOLAZINE E.R. 500 MG TABLET (FP) PO SCH (21:21)
[2021-10-12] MEDS: ROSUVASTATIN CA 10 MG TABLET PO SCH (21:21)
[2021-10-12] MEDS: BUDESONIDE/FORMETEROL FUMARATE 160/4.5 mcg INHALER IH SCH (22:08)
[2021-10-12] MEDS: ALPRAZolam 0.25 MG TABLET PO PRN (22:37)
[2021-10-13] MEDS: methylPREDNISolone NA SUCC 40 MG/1 ML VIAL IVPUSH SCH ×3 (02:06→17:46)
[2021-10-13 02:36] VITALS: BMI 26.4
[2021-10-13] MEDS: metFORMIN HCL 500 MG TABLET (FP) PO SCH ×2 (06:11→16:06)
[2021-10-13] MEDS: oxyCODONE HCL 5 MG TABLET PO PRN ×2 (06:11→21:01)
[2021-10-13] MEDS: TAMSULOSIN HCL 0.4 MG CAP PO SCH (09:02)
[2021-10-13] MEDS ORDERED: cefTRIAXone SODIUM 1 GM VIAL ONE (09:09)
[2021-10-13] MEDS ORDERED: DEXTROSE 5%-WATER - 50 ML IVPB ONE (09:09)
[2021-10-13] MEDS: LOSARTAN POTASSIUM 50 MG TABLET PO SCH (09:11)
[2021-10-13] MEDS: ESCITALOPRAM OXALATE 10 MG TABLET PO SCH ×2 (09:11→21:01)
[2021-10-13] MEDS: PANTOPRAZOLE 40 MG TABLET PO SCH (09:11)
[2021-10-13] MEDS: FINASTERIDE 5 MG TABLET (FP) PO SCH (09:11)
[2021-10-13] MEDS: metoPROLOL SUCCINATE 25 MG TAB.SR.24H (FP) PO SCH ×2 (09:12→21:01)
[2021-10-13] MEDS: RANOLAZINE E.R. 500 MG TABLET (FP) PO SCH ×2 (09:12→21:01)
[2021-10-13] MEDS: BUDESONIDE/FORMETEROL FUMARATE 160/4.5 mcg INHALER IH SCH ×2 (09:12→21:06)
[2021-10-13] MEDS: CEFTRIAXONE 1 GM in DEXTROSE 5%-WATER - 50 ML IVPB SCH (09:12)
[2021-10-13 09:37] LABS: HEMATOCRIT 34.1 % (35.4-49); HEMOGLOBIN 11.5 GM/dL (11.7-16.9); MCHC 33.6 g/dl (32.0-35.9); MEAN CELL VOLUME 89.2 fl (80-96); MEAN PLT VOLUME 7.2 fl (7.5-11.1); PLATELET COUNT 174 10^3/uL (134-434); RBC 3.82 M/mm3 (4.00-5.60); RDW 15.6 % (11.9-15.9); WHITE BLOOD COUNT 7.5 K/mm3 (4.0-10.0)
[2021-10-13 09:52] LABS: ERYTHROCYTE SEDIMENTATION RATE 7 mm/hr (0-20)
[2021-10-13] MEDS ORDERED: predniSONE 10 MG TABLET (UD) PO SCH (10:00)
[2021-10-13] MEDS ORDERED: FAMOTIDINE 40 MG TABLET PO SCH (10:00)
[2021-10-13 10:26] LABS: CALCIUM 8.9 mg/dL (8.5-10.1)
[2021-10-13 10:27] LABS: ALBUMIN 3.2 g/dl (3.4-5.0); BLOOD UREA NITROGEN 12.7 mg/dL (7-18)
[2021-10-13 10:30] LABS: CREATININE 0.6 mg/dL (0.55-1.3)
[2021-10-13 10:31] LABS: BILIRUBIN,TOTAL 0.9 mg/dL (0.2-1); TOT PROT 5.5 g/dl (6.4-8.2)
[2021-10-13 10:46] LABS: ANISOCYTOSIS 0; HELMET CELLS 0; HOWELL-JOLLY BODIES 0; MACROCYTOSIS 0; OVALOCYTE 0; ROULEAU 0; SICKELED CELLS 0; TARGET CELLS 0; TEAR DROP CELLS 0; TOXIC GRANULATION 0
[2021-10-13] MEDS: TIOTROPIUM BROMIDE 2.5 MCG (SPIRIVA) RESPIMAT INHALER IH SCH (12:58)
[2021-10-13] MEDS: ALPRAZolam 0.25 MG TABLET PO PRN ×2 (16:07→21:01)
[2021-10-13] MEDS: RIVAROXABAN 20 MG TABLET PO SCH (17:14)
[2021-10-13] MEDS: ROSUVASTATIN CA 10 MG TABLET PO SCH (21:01)
[2021-10-13] MEDS: MONTELUKAST NA 10 MG TABLET PO SCH (21:05)
[2021-10-14] MEDS: methylPREDNISolone NA SUCC 40 MG/1 ML VIAL IVPUSH SCH (02:12)
[2021-10-14] MEDS: metFORMIN HCL 500 MG TABLET (FP) PO SCH ×2 (06:46→16:08)
[2021-10-14] MEDS: TAMSULOSIN HCL 0.4 MG CAP PO SCH (09:49)
[2021-10-14] MEDS: metoPROLOL SUCCINATE 25 MG TAB.SR.24H (FP) PO SCH ×2 (09:49→21:28)
[2021-10-14] MEDS: ESCITALOPRAM OXALATE 10 MG TABLET PO SCH ×2 (09:49→21:29)
[2021-10-14] MEDS: FINASTERIDE 5 MG TABLET (FP) PO SCH (09:50)
[2021-10-14] MEDS: BUDESONIDE/FORMETEROL FUMARATE 160/4.5 mcg INHALER IH SCH ×2 (09:50→21:35)
[2021-10-14] MEDS: LOSARTAN POTASSIUM 50 MG TABLET PO SCH (09:50)
[2021-10-14] MEDS: PANTOPRAZOLE 40 MG TABLET PO SCH (09:50)
[2021-10-14] MEDS: RANOLAZINE E.R. 500 MG TABLET (FP) PO SCH ×2 (09:50→21:29)
[2021-10-14] MEDS: TIOTROPIUM BROMIDE 2.5 MCG (SPIRIVA) RESPIMAT INHALER IH SCH (09:51)
[2021-10-14] MEDS: oxyCODONE HCL 5 MG TABLET PO PRN ×2 (14:29→21:30)
[2021-10-14] MEDS: INSULIN (NOVOLOG) ASPART 100 UNITS/ML 10ML VIAL SQ SCH ×2 (16:47→21:32)
[2021-10-14] MEDS: RIVAROXABAN 20 MG TABLET PO SCH (17:31)
[2021-10-14] MEDS: ALPRAZolam 0.25 MG TABLET PO PRN (21:29)
[2021-10-14] MEDS: ROSUVASTATIN CA 10 MG TABLET PO SCH (21:29)
[2021-10-14] MEDS: MONTELUKAST NA 10 MG TABLET PO SCH (21:29)
[2021-10-15] MEDS: INSULIN (NOVOLOG) ASPART 100 UNITS/ML 10ML VIAL SQ SCH ×4 (06:39→22:09)
[2021-10-15] MEDS: metFORMIN HCL 500 MG TABLET (FP) PO SCH ×2 (06:39→15:40)
[2021-10-15] MEDS: TAMSULOSIN HCL 0.4 MG CAP PO SCH (07:52)
[2021-10-15] MEDS: LOSARTAN POTASSIUM 50 MG TABLET PO SCH (09:04)
[2021-10-15] MEDS: FINASTERIDE 5 MG TABLET (FP) PO SCH (09:05)
[2021-10-15] MEDS: ESCITALOPRAM OXALATE 10 MG TABLET PO SCH ×2 (09:05→22:06)
[2021-10-15] MEDS: metoPROLOL SUCCINATE 25 MG TAB.SR.24H (FP) PO SCH ×2 (09:06→22:05)
[2021-10-15] MEDS: PANTOPRAZOLE 40 MG TABLET PO SCH (09:07)
[2021-10-15] MEDS: RANOLAZINE E.R. 500 MG TABLET (FP) PO SCH ×2 (09:07→22:07)
[2021-10-15] MEDS: TIOTROPIUM BROMIDE 2.5 MCG (SPIRIVA) RESPIMAT INHALER IH SCH (09:08)
[2021-10-15] MEDS: BUDESONIDE/FORMETEROL FUMARATE 160/4.5 mcg INHALER IH SCH ×2 (09:08→22:10)
[2021-10-15] MEDS: oxyCODONE HCL 5 MG TABLET PO PRN ×2 (09:16→22:11)
[2021-10-15 09:51] LABS: HEMOGLOBIN 11.3 GM/dL (11.7-16.9); MCH 29.9 pg (25.7-33.7); MCHC 33.3 g/dl (32.0-35.9); MEAN CELL VOLUME 89.7 fl (80-96); MEAN PLT VOLUME 7.2 fl (7.5-11.1); PLATELET COUNT 173 10^3/uL (134-434); RBC 3.79 M/mm3 (4.00-5.60); RDW 15.8 % (11.9-15.9); WHITE BLOOD COUNT 9.2 K/mm3 (4.0-10.0)
[2021-10-15 10:03] LABS: BLOOD UREA NITROGEN 12.4 mg/dL (7-18); CALCIUM 8.6 mg/dL (8.5-10.1)
[2021-10-15 10:04] LABS: ALBUMIN 3.2 g/dl (3.4-5.0)
[2021-10-15 10:07] LABS: CREATININE 0.5 mg/dL (0.55-1.3)
[2021-10-15 10:08] LABS: BILIRUBIN,TOTAL 1.4 mg/dL (0.2-1); TOT PROT 5.5 g/dl (6.4-8.2)
[2021-10-15 10:25] LABS: ANISOCYTOSIS 1+; MACROCYTOSIS 0
[2021-10-15] MEDS: ACETAMINOPHEN 325 MG TABLET (FP) PO PRN (15:39)
[2021-10-15] MEDS: RIVAROXABAN 20 MG TABLET PO SCH (17:51)
[2021-10-15] MEDS: SODIUM CHLORIDE NASAL SPRAY 44 ML BOTTLE NS PRN (17:51)
[2021-10-15] MEDS: MONTELUKAST NA 10 MG TABLET PO SCH (22:06)
[2021-10-15] MEDS: ROSUVASTATIN CA 10 MG TABLET PO SCH (22:06)
[2021-10-16] MEDS: metFORMIN HCL 500 MG TABLET (FP) PO SCH ×2 (06:28→17:21)
[2021-10-16] MEDS: INSULIN (NOVOLOG) ASPART 100 UNITS/ML 10ML VIAL SQ SCH ×4 (06:32→21:07)
[2021-10-16] MEDS: TAMSULOSIN HCL 0.4 MG CAP PO SCH (08:45)
[2021-10-16] MEDS: ACETAMINOPHEN 325 MG TABLET (FP) PO PRN (08:49)
[2021-10-16] MEDS: FINASTERIDE 5 MG TABLET (FP) PO SCH (10:21)
[2021-10-16] MEDS: PANTOPRAZOLE 40 MG TABLET PO SCH (10:21)
[2021-10-16] MEDS: RANOLAZINE E.R. 500 MG TABLET (FP) PO SCH ×2 (10:21→21:08)
[2021-10-16] MEDS: ESCITALOPRAM OXALATE 10 MG TABLET PO SCH ×2 (10:22→21:07)
[2021-10-16] MEDS: LOSARTAN POTASSIUM 50 MG TABLET PO SCH (10:22)
[2021-10-16] MEDS: metoPROLOL SUCCINATE 25 MG TAB.SR.24H (FP) PO SCH ×2 (10:22→21:07)
[2021-10-16] MEDS: oxyCODONE HCL 5 MG TABLET PO PRN ×2 (10:22→20:47)
[2021-10-16] MEDS: TIOTROPIUM BROMIDE 2.5 MCG (SPIRIVA) RESPIMAT INHALER IH SCH (10:23)
[2021-10-16] MEDS: BUDESONIDE/FORMETEROL FUMARATE 160/4.5 mcg INHALER IH SCH ×2 (10:23→21:08)
[2021-10-16] MEDS: SODIUM CHLORIDE NASAL SPRAY 44 ML BOTTLE NS PRN (10:23)
[2021-10-16] MEDS: RIVAROXABAN 20 MG TABLET PO SCH (17:21)
[2021-10-16] MEDS: ROSUVASTATIN CA 10 MG TABLET PO SCH (21:07)
[2021-10-16] MEDS: GABAPENTIN 300 MG CAPSULE PO SCH (21:08)
[2021-10-16] MEDS: MONTELUKAST NA 10 MG TABLET PO SCH (21:08)
[2021-10-17] MEDS: GABAPENTIN 300 MG CAPSULE PO SCH ×3 (05:55→22:09)
[2021-10-17] MEDS: INSULIN (NOVOLOG) ASPART 100 UNITS/ML 10ML VIAL SQ SCH ×4 (06:03→22:06)
[2021-10-17] MEDS: metFORMIN HCL 500 MG TABLET (FP) PO SCH ×2 (06:03→16:46)
[2021-10-17] MEDS: TAMSULOSIN HCL 0.4 MG CAP PO SCH (08:51)
[2021-10-17] MEDS: oxyCODONE HCL 5 MG TABLET PO PRN ×2 (08:51→16:46)
[2021-10-17] MEDS: DOCUSATE SODIUM 100 MG CAPSULE (FP) PO SCH (10:58)
[2021-10-17] MEDS: LOSARTAN POTASSIUM 50 MG TABLET PO SCH (10:58)
[2021-10-17] MEDS: ESCITALOPRAM OXALATE 10 MG TABLET PO SCH ×2 (10:58→22:10)
[2021-10-17] MEDS: RANOLAZINE E.R. 500 MG TABLET (FP) PO SCH ×2 (10:59→22:09)
[2021-10-17] MEDS: metoPROLOL SUCCINATE 25 MG TAB.SR.24H (FP) PO SCH ×2 (10:59→22:09)
[2021-10-17] MEDS: PANTOPRAZOLE 40 MG TABLET PO SCH (10:59)
[2021-10-17] MEDS: TIOTROPIUM BROMIDE 2.5 MCG (SPIRIVA) RESPIMAT INHALER IH SCH (10:59)
[2021-10-17] MEDS: FINASTERIDE 5 MG TABLET (FP) PO SCH (10:59)
[2021-10-17] MEDS: BUDESONIDE/FORMETEROL FUMARATE 160/4.5 mcg INHALER IH SCH ×2 (11:00→22:11)
[2021-10-17] MEDS: RIVAROXABAN 20 MG TABLET PO SCH (17:26)
[2021-10-17] MEDS ORDERED: ALPRAZolam 0.25 MG TABLET PO PRN (20:57)
[2021-10-17] MEDS: ROSUVASTATIN CA 10 MG TABLET PO SCH (22:10)
[2021-10-17] MEDS: MONTELUKAST NA 10 MG TABLET PO SCH (22:10)
[2021-10-18] MEDS: oxyCODONE HCL 5 MG TABLET PO PRN ×2 (01:17→14:22)
[2021-10-18] MEDS: INSULIN (NOVOLOG) ASPART 100 UNITS/ML 10ML VIAL SQ SCH ×3 (06:54→16:22)
[2021-10-18] MEDS: GABAPENTIN 300 MG CAPSULE PO SCH ×2 (06:57→14:21)
[2021-10-18] MEDS: metFORMIN HCL 500 MG TABLET (FP) PO SCH ×2 (06:57→16:23)
[2021-10-18] MEDS: TAMSULOSIN HCL 0.4 MG CAP PO SCH (07:51)
[2021-10-18] MEDS: DOCUSATE SODIUM 100 MG CAPSULE (FP) PO SCH (09:16)
[2021-10-18] MEDS: metoPROLOL SUCCINATE 25 MG TAB.SR.24H (FP) PO SCH (09:17)
[2021-10-18] MEDS: LOSARTAN POTASSIUM 50 MG TABLET PO SCH (09:17)
[2021-10-18] MEDS: FINASTERIDE 5 MG TABLET (FP) PO SCH (09:17)
[2021-10-18] MEDS: ESCITALOPRAM OXALATE 10 MG TABLET PO SCH (09:17)
[2021-10-18] MEDS: RANOLAZINE E.R. 500 MG TABLET (FP) PO SCH (09:17)
[2021-10-18] MEDS: PANTOPRAZOLE 40 MG TABLET PO SCH (09:17)
[2021-10-18] MEDS: BUDESONIDE/FORMETEROL FUMARATE 160/4.5 mcg INHALER IH SCH (09:18)
[2021-10-18] MEDS: TIOTROPIUM BROMIDE 2.5 MCG (SPIRIVA) RESPIMAT INHALER IH SCH (09:18)
[2021-10-18] MEDS: ALBUTEROL SO4 0.083% IH SOL 2.5 MG/3 ML VIAL.NEB. NEB SCH ×2 (13:00→19:54)
[2021-10-18 14:54] VITALS: TEMP 98.1
[2021-10-18] MEDS: RIVAROXABAN 20 MG TABLET PO SCH (18:00)
[2021-10-18 18:37] VITALS: BP 115/59; PULSE 101
== END 2021-10-18 20:57 | DRG 191 ==
LOC: JER 07:43 → JERBED 10:23 → J4S 20:23
PROVIDERS: ADMIT Internal Medicine; ATTEND Internal Medicine
PROC: 09J Ear, Nose, Sinus, Inspection (ICD-10-PCS; principal; 2021-10-14)
DX: J44.1 Chronic obstructive pulmonary disease with (acute) exacerbation (principal); I48.21 Permanent atrial fibrillation; I50.32 Chronic diastolic (congestive) heart failure; J44.9 Chronic obstructive pulmonary disease, unspecified; I10 Essential (primary) hypertension; E11.9 Type 2 diabetes mellitus without complications; R04.0 Epistaxis; J98.4 Other disorders of lung; E78.5 Hyperlipidemia, unspecified; I25.10 Atherosclerotic heart disease of native coronary artery without angina pectoris; F10.10 Alcohol abuse, uncomplicated; I11.0 Hypertensive heart disease with heart failure; E66.09 Other obesity due to excess calories
CPT/HCPCS: 36415; 71045-TC-FY; 71250-TC; 80053; 82550; 82607; 82728; 82962; 83540; 83880; 84443; 84484; 85025; 85610; 85651; 85730; 86140; 86850; 86900; 86901; 87040; 87086; 93005; 93010; 94640; 94761; 97116-GP; 97161-GP; 99285-25; C9803; U0003; U0005

== ENCOUNTER 2022-02-07 07:53 | Emergency (ER) | payer OTHER, BC ==
[2022-02-07 08:07] VITALS: BP 119/70; TEMP 97.7; BMI 26.6
[2022-02-07 12:13] VITALS: PULSE 98
== END 2022-02-07 12:14 | disposition home or self-care (01) ==
LOC: JER 07:53
DX: M25.511 Pain in right shoulder (principal)
CPT/HCPCS: 73030-TC-RT-FY; 73070-TC-RT-FY; 93005; 93010; 99284-25

== ENCOUNTER 2022-03-31 14:55 | Emergency (ER) | payer OTHER, BC ==
[2022-03-31 15:00] VITALS: BP 115/84; PULSE 65; RESP 18; BMI 27.4
[2022-03-31] MEDS ORDERED: SODIUM CHLORIDE 2,245 ML IV ONE (15:56)
[2022-03-31] MEDS ORDERED: CEFTRIAXONE 1,000 MG in DEXTROSE 5%-WATER - 50 ML IVPB ONE (15:57)
[2022-03-31] MEDS ORDERED: CEFTRIAXONE 1 GM/50 ML BAG ONE (16:50)
[2022-03-31 18:11] VITALS: TEMP 99.2
[2022-03-31 18:21] LABS: VENOUS BASE EXCESS -2.7 mmol/L (-2-2); VENOUS O2 SATURATION 51.9 % (70-80); VENOUS PCO2 62.6 mmHg (38-52); VENOUS PH 7.231 (7.310-7.410)
[2022-03-31 18:33] LABS: BASO % 0.3 % (0-2.0); HEMATOCRIT 32.8 % (35.4-49); HEMOGLOBIN 10.7 GM/dL (11.7-16.9); LYMPH % 10.5 % (8-40); MCH 27.7 pg (25.7-33.7); MCHC 32.4 g/dl (32.0-35.9); MEAN CELL VOLUME 85.3 fl (80-96); MONO % 4.9 % (3.8-10.2); NEUT % 84.3 % (42.8-82.8); PH,URINE 5.5 (5.0-8.0); PLATELET COUNT 220 10^3/uL (134-434); RBC 3.85 M/mm3 (4.00-5.60); URINE APPEARANCE CLEAR; URINE BILIRUBIN NEGATIVE (NEGATIVE); URINE COLOR YELLOW; URINE GLUCOSE (UA) 3+ (NEGATIVE); URINE KETONE NEGATIVE (NEGATIVE); URINE LEUK ESTERASE NEGATIVE (NEGATIVE); URINE NITRITE NEGATIVE (NEGATIVE); URINE PROTEIN NEGATIVE (NEGATIVE); URINE UROBILINOGEN 0.2 mg/dL (0.2-1.0); WHITE BLOOD COUNT 8.6 K/mm3 (4.0-10.0)
[2022-03-31 18:41] LABS: INR 1.42 (0.83-1.09); PROTHROMBIN TIME (PATIENT) 16.4 SEC (9.7-13.0)
[2022-03-31 18:43] LABS: ACTIVATED PTT 29.2 SECONDS (25.2-36.5)
[2022-03-31 18:44] LABS: CHLORIDE 98 mmol/L (98-107); SODIUM 135 mmol/L (136-145)
[2022-03-31 18:46] LABS: CALCIUM 8.9 mg/dL (8.5-10.1)
[2022-03-31 18:47] LABS: ALBUMIN 3.4 g/dl (3.4-5.0); ANION GAP 10 MMOL/L (8-16); BLOOD UREA NITROGEN 19.6 mg/dL (7-18); CO2 27 mmol/L (21-32)
[2022-03-31 18:50] LABS: CREATININE 0.9 mg/dL (0.55-1.3); SGOT/AST 19 U/L (15-37)
[2022-03-31 18:51] LABS: BILIRUBIN,TOTAL 0.4 mg/dL (0.2-1)
[2022-03-31 18:52] LABS: TOT PROT 6.3 g/dl (6.4-8.2)
[2022-03-31 18:53] LABS: ALK PHOS 79 U/L (45-117)
[2022-03-31 18:59] LABS: SGPT/ALT 44 U/L (13-61)
[2022-03-31 20:03] LABS: LACTIC ACID 6.2 mmol/L (0.4-2.0)
[2022-03-31 20:18] LABS: GLUCOSE,RANDOM 437 mg/dL (74-106)
[2022-03-31 20:35] LABS: ANISOCYTOSIS 1+; MACROCYTOSIS 1+; OVALOCYTE 1+
[2022-03-31] MEDS ORDERED: INSULIN REGULAR HUMAN 100 UNITS/ML *VIAL IVPUSH ONE (21:28)
[2022-03-31 22:17] LABS: VENOUS BASE EXCESS -0.8 mmol/L (-2-2); VENOUS PCO2 52.6 mmHg (38-52); VENOUS PH 7.311 (7.310-7.410)
[2022-03-31 22:45] LABS: CALCIUM 8.3 mg/dL (8.5-10.1)
[2022-03-31 22:46] LABS: ALBUMIN 3.1 g/dl (3.4-5.0); BLOOD UREA NITROGEN 15.6 mg/dL (7-18)
[2022-03-31 22:49] LABS: CREATININE 0.6 mg/dL (0.55-1.3)
[2022-03-31 22:51] LABS: BILIRUBIN,TOTAL 0.2 mg/dL (0.2-1); TOT PROT 5.6 g/dl (6.4-8.2)
[2022-03-31 22:54] LABS: LACTIC ACID 2.6 mmol/L (0.4-2.0)
== END 2022-03-31 23:32 | disposition home or self-care (01) ==
LOC: JER 14:55
PROC: 3E03329 Introduction of Other Anti-infective into Peripheral Vein, Percutaneous Approach (ICD-10-PCS; principal; 2022-03-31)
PROC: 3E013VG Introduction of Insulin into Subcutaneous Tissue, Percutaneous Approach (ICD-10-PCS; 2022-03-31)
PROC: 3E0337Z Introduction of Electrolytic and Water Balance Substance into Peripheral Vein, Percutaneous Approach (ICD-10-PCS; 2022-03-31)
DX: R53.83 Other fatigue (principal); I95.9 Hypotension, unspecified
CPT/HCPCS: 0241U-QW; 36415; 71045-TC-FY; 74177-TC; 80053; 81003; 82550; 82553; 82803; 83605; 84484; 85025; 85610; 85730; 86850; 86900; 86901; 87040; 87086; 93005; 93010; 99285-25

== ENCOUNTER 2022-11-22 14:19 | Inpatient (IN) | payer OTHER, BC ==
[2022-11-22] MEDS ORDERED: ACETAMINOPHEN 1000 MG/100 ML BAG IVPB ONE (15:07)
[2022-11-22] MEDS ORDERED: DIPHTH,PERTUSS(ACELL),TET 0.5 ML DISP.SYRIN IM ONE ×2 (15:56→16:19)
[2022-11-22 17:09] LABS: BASO % 0.2 % (0-2.0); EOS % 0.3 % (0-4.5); HEMATOCRIT 24.3 % (35.4-49); HEMOGLOBIN 7.2 GM/dL (11.7-16.9); LYMPH % 7.1 % (8-40); MCH 22.1 pg (25.7-33.7); MCHC 29.6 g/dl (32.0-35.9); MEAN CELL VOLUME 74.8 fl (80-96); MEAN PLT VOLUME 7.1 fl (7.5-11.1); MONO % 3.4 % (3.8-10.2); PLATELET COUNT 192 10^3/uL (134-434); RBC 3.25 M/mm3 (4.00-5.60); RDW 19.5 % (11.9-15.9); WHITE BLOOD COUNT 6.4 K/mm3 (4.0-10.0)
[2022-11-22 17:13] LABS: ALBUMIN 2.9 g/dl (3.4-5.0); BLOOD UREA NITROGEN 15.3 mg/dL (7-18)
[2022-11-22 17:16] LABS: CREATININE 0.8 mg/dL (0.55-1.3)
[2022-11-22 17:18] LABS: BILIRUBIN,TOTAL 0.5 mg/dL (0.2-1); TOT PROT 4.8 g/dl (6.4-8.2)
[2022-11-22 17:21] LABS: INR 2.18 (0.83-1.09); PROTHROMBIN TIME (PATIENT) 25.1 SEC (9.7-13.0)
[2022-11-22 17:24] LABS: ACTIVATED PTT 30.4 SECONDS (25.2-36.5)
[2022-11-22 20:16] LABS: ANISOCYTOSIS 2+; MACROCYTOSIS 0; OVALOCYTE 2+; TEAR DROP CELLS 1+
[2022-11-22] MEDS ORDERED: ALBUTEROL SO4 0.083% IH SOL 2.5 MG/3 ML VIAL.NEB. NEB PRN (20:45)
[2022-11-22] MEDS ORDERED: ALPRAZolam 0.25 MG TABLET PO PRN (20:45)
[2022-11-22] MEDS ORDERED: ALBUTEROL SO4 HFA INHALER IH PRN (20:45)
[2022-11-22] MEDS ORDERED: SODIUM CHLORIDE NASAL SPRAY 44 ML BOTTLE NS PRN (20:45)
[2022-11-22] MEDS ORDERED: oxyCODONE HCL 5 MG TABLET ONE (21:49)
[2022-11-22] MEDS: oxyCODONE HCL 5 MG TABLET PO PRN (21:55)
[2022-11-23] MEDS ORDERED: ROSUVASTATIN CA 20 MG TABLET ONE (01:51)
[2022-11-23] MEDS ORDERED: GABAPENTIN 300 MG CAPSULE ONE ×2 (01:51→14:24)
[2022-11-23] MEDS ORDERED: ESCITALOPRAM OXALATE 10 MG TABLET ONE ×2 (01:51→08:48)
[2022-11-23] MEDS ORDERED: metFORMIN HCL 500 MG TABLET (FP) ONE ×2 (01:51→10:45)
[2022-11-23] MEDS: ROSUVASTATIN CA 10 MG TABLET PO SCH ×2 (01:58→22:34)
[2022-11-23] MEDS: GABAPENTIN 300 MG CAPSULE PO SCH ×4 (01:58→22:33)
[2022-11-23] MEDS: metFORMIN HCL 500 MG TABLET (FP) PO SCH ×3 (01:58→22:30)
[2022-11-23] MEDS: ESCITALOPRAM OXALATE 10 MG TABLET PO SCH ×3 (01:58→22:33)
[2022-11-23] MEDS: metoPROLOL SUCCINATE 25 MG TAB.SR.24H (FP) PO SCH ×2 (01:59→09:30)
[2022-11-23] MEDS: RANOLAZINE E.R. 500 MG TABLET (FP) PO SCH ×3 (06:06→22:31)
[2022-11-23] MEDS: BUDESONIDE/FORMETEROL FUMARATE 160/4.5 mcg INHALER IH SCH ×3 (06:08→22:30)
[2022-11-23 06:41] LABS: BASO % 0.5 % (0-2.0); EOS % 1.6 % (0-4.5); HEMATOCRIT 29.9 % (35.4-49); HEMOGLOBIN 9.6 GM/dL (11.7-16.9); LYMPH % 23.5 % (8-40); MCH 23.6 pg (25.7-33.7); MCHC 32.2 g/dl (32.0-35.9); MEAN CELL VOLUME 73.2 fl (80-96); MEAN PLT VOLUME 7.2 fl (7.5-11.1); MONO % 11.7 % (3.8-10.2); NEUT % 62.7 % (42.8-82.8); PLATELET COUNT 209 10^3/uL (134-434); RBC 4.08 M/mm3 (4.00-5.60); RDW 19.2 % (11.9-15.9); WHITE BLOOD COUNT 7.9 K/mm3 (4.0-10.0)
[2022-11-23 07:01] LABS: CREATININE 0.6 mg/dL (0.55-1.3); TOT PROT 5.7 g/dl (6.4-8.2)
[2022-11-23 07:03] LABS: BILIRUBIN,TOTAL 1.3 mg/dL (0.2-1)
[2022-11-23 07:11] LABS: ALBUMIN 3.5 g/dl (3.4-5.0)
[2022-11-23] MEDS ORDERED: TAMSULOSIN HCL 0.4 MG CAP ONE (07:49)
[2022-11-23] MEDS: oxyCODONE HCL 5 MG TABLET PO PRN (07:55)
[2022-11-23] MEDS ORDERED: oxyCODONE HCL 5 MG TABLET ONE (07:55)
[2022-11-23] MEDS: TAMSULOSIN HCL 0.4 MG CAP PO SCH (07:59)
[2022-11-23] MEDS ORDERED: PANTOPRAZOLE 20 MG TABLET PO ONE (08:48)
[2022-11-23] MEDS ORDERED: MONTELUKAST NA 10 MG TABLET ONE (08:48)
[2022-11-23] MEDS ORDERED: DOCUSATE SODIUM 100 MG CAPSULE (FP) PO ONE (08:48)
[2022-11-23] MEDS ORDERED: LOSARTAN POTASSIUM 50 MG TABLET ONE (08:48)
[2022-11-23] MEDS ORDERED: RANOLAZINE E.R. 500 MG TABLET (FP) ONE (08:49)
[2022-11-23] MEDS: LOSARTAN POTASSIUM 50 MG TABLET PO SCH (09:30)
[2022-11-23] MEDS ORDERED: ACETAMINOPHEN 325 MG TABLET (FP) ONE (09:47)
[2022-11-23] MEDS: ACETAMINOPHEN 325 MG TABLET (FP) PO PRN (09:48)
[2022-11-23] MEDS ORDERED: DOCUSATE SODIUM 100 MG CAPSULE (FP) PO SCH (10:00)
[2022-11-23] MEDS ORDERED: PANTOPRAZOLE 20 MG TABLET PO SCH (10:00)
[2022-11-23] MEDS ORDERED: ATROPINE SULFATE 1 MG/10 ML DISP.SYRIN ONE (10:10)
[2022-11-23] MEDS: FINASTERIDE 5 MG TABLET (FP) PO SCH (10:46)
[2022-11-23] MEDS: MONTELUKAST NA 10 MG TABLET PO SCH (10:47)
[2022-11-23] MEDS: guaiFENesin 600 MG TABLET.ER (FP) PO SCH (10:50)
[2022-11-23] MEDS: TIOTROPIUM BROMIDE 2.5 MCG (SPIRIVA) RESPIMAT INHALER IH SCH (12:15)
[2022-11-23] MEDS ORDERED: RIVAROXABAN 20 MG TABLET PO SCH (18:00)
[2022-11-24] MEDS: GABAPENTIN 300 MG CAPSULE PO SCH ×3 (06:55→21:31)
[2022-11-24 08:42] LABS: INR 1.38 (0.83-1.09)
[2022-11-24 08:53] LABS: BASO % 0.3 % (0-2.0); HEMATOCRIT 30.5 % (35.4-49); HEMOGLOBIN 9.5 GM/dL (11.7-16.9); LYMPH % 19.5 % (8-40); MCH 23.2 pg (25.7-33.7); MCHC 31.3 g/dl (32.0-35.9); MEAN CELL VOLUME 74.1 fl (80-96); MEAN PLT VOLUME 6.9 fl (7.5-11.1); MONO % 10.6 % (3.8-10.2); NEUT % 67.6 % (42.8-82.8); PLATELET COUNT 216 10^3/uL (134-434); RBC 4.11 M/mm3 (4.00-5.60); RDW 19.2 % (11.9-15.9); WHITE BLOOD COUNT 7.1 K/mm3 (4.0-10.0)
[2022-11-24 08:59] LABS: CALCIUM 9.1 mg/dL (8.5-10.1)
[2022-11-24 09:00] LABS: ALBUMIN 3.3 g/dl (3.4-5.0)
[2022-11-24 09:02] LABS: BLOOD UREA NITROGEN 7.8 mg/dL (7-18); CREATININE 0.7 mg/dL (0.55-1.3)
[2022-11-24 09:04] LABS: BILIRUBIN,TOTAL 1.1 mg/dL (0.2-1); TOT PROT 5.5 g/dl (6.4-8.2)
[2022-11-24] MEDS: TAMSULOSIN HCL 0.4 MG CAP PO SCH (09:14)
[2022-11-24] MEDS: ACETAMINOPHEN 325 MG TABLET (FP) PO PRN ×2 (09:45→18:08)
[2022-11-24] MEDS: oxyCODONE HCL 5 MG TABLET PO PRN ×2 (09:45→21:36)
[2022-11-24] MEDS: metFORMIN HCL 500 MG TABLET (FP) PO SCH ×2 (09:47→21:31)
[2022-11-24] MEDS: RANOLAZINE E.R. 500 MG TABLET (FP) PO SCH ×2 (09:47→21:31)
[2022-11-24] MEDS: ESCITALOPRAM OXALATE 10 MG TABLET PO SCH ×2 (09:47→21:31)
[2022-11-24] MEDS: LOSARTAN POTASSIUM 50 MG TABLET PO SCH (09:47)
[2022-11-24] MEDS: guaiFENesin 600 MG TABLET.ER (FP) PO SCH (09:47)
[2022-11-24] MEDS: FINASTERIDE 5 MG TABLET (FP) PO SCH (09:47)
[2022-11-24] MEDS: MONTELUKAST NA 10 MG TABLET PO SCH (09:47)
[2022-11-24] MEDS: PANTOPRAZOLE 20 MG TABLET PO SCH (09:48)
[2022-11-24] MEDS: BUDESONIDE/FORMETEROL FUMARATE 160/4.5 mcg INHALER IH SCH ×2 (09:48→21:32)
[2022-11-24] MEDS: TIOTROPIUM BROMIDE 2.5 MCG (SPIRIVA) RESPIMAT INHALER IH SCH (09:49)
[2022-11-24 15:33] VITALS: BMI 26.9
[2022-11-24] MEDS: ROSUVASTATIN CA 10 MG TABLET PO SCH (21:31)
[2022-11-25] MEDS: GABAPENTIN 300 MG CAPSULE PO SCH ×3 (06:28→21:27)
[2022-11-25 07:35] LABS: BASO % 0.4 % (0-2.0); EOS % 2.5 % (0-4.5); HEMATOCRIT 32.4 % (35.4-49); LYMPH % 25.5 % (8-40); MCH 22.8 pg (25.7-33.7); MCHC 30.8 g/dl (32.0-35.9); MEAN CELL VOLUME 73.9 fl (80-96); MEAN PLT VOLUME 7.1 fl (7.5-11.1); MONO % 12.8 % (3.8-10.2); NEUT % 58.8 % (42.8-82.8); PLATELET COUNT 229 10^3/uL (134-434); RBC 4.38 M/mm3 (4.00-5.60); RDW 19.7 % (11.9-15.9)
[2022-11-25 07:43] LABS: INR 1.33 (0.83-1.09); PROTHROMBIN TIME (PATIENT) 15.4 SEC (9.7-13.0)
[2022-11-25 07:56] LABS: CALCIUM 8.7 mg/dL (8.5-10.1)
[2022-11-25 07:58] LABS: ALBUMIN 3.2 g/dl (3.4-5.0); BLOOD UREA NITROGEN 5.3 mg/dL (7-18)
[2022-11-25 08:01] LABS: CREATININE 0.6 mg/dL (0.55-1.3)
[2022-11-25 08:02] LABS: BILIRUBIN,TOTAL 0.9 mg/dL (0.2-1); TOT PROT 5.4 g/dl (6.4-8.2)
[2022-11-25] MEDS: TIOTROPIUM BROMIDE 2.5 MCG (SPIRIVA) RESPIMAT INHALER IH SCH (12:00)
[2022-11-25] MEDS: RANOLAZINE E.R. 500 MG TABLET (FP) PO SCH ×2 (12:29→21:27)
[2022-11-25] MEDS: FINASTERIDE 5 MG TABLET (FP) PO SCH (12:30)
[2022-11-25] MEDS: PANTOPRAZOLE 20 MG TABLET PO SCH (12:30)
[2022-11-25] MEDS: metFORMIN HCL 500 MG TABLET (FP) PO SCH ×2 (12:30→21:27)
[2022-11-25] MEDS: ESCITALOPRAM OXALATE 10 MG TABLET PO SCH ×2 (12:31→21:27)
[2022-11-25] MEDS: MONTELUKAST NA 10 MG TABLET PO SCH (12:31)
[2022-11-25] MEDS: guaiFENesin 600 MG TABLET.ER (FP) PO SCH (12:31)
[2022-11-25] MEDS: LOSARTAN POTASSIUM 50 MG TABLET PO SCH (12:31)
[2022-11-25] MEDS: TAMSULOSIN HCL 0.4 MG CAP PO SCH (12:31)
[2022-11-25] MEDS: BUDESONIDE/FORMETEROL FUMARATE 160/4.5 mcg INHALER IH SCH ×2 (13:00→21:30)
[2022-11-25] MEDS: POLYETHYLENE GLYCOL (HEALTHYLAX) 3350 17 GM PACKET PO SCH ×2 (13:42→21:25)
[2022-11-25] MEDS: ACETAMINOPHEN 325 MG TABLET (FP) PO PRN (14:12)
[2022-11-25] MEDS: oxyCODONE HCL 5 MG TABLET PO PRN ×2 (14:13→21:26)
[2022-11-25] MEDS: ROSUVASTATIN CA 10 MG TABLET PO SCH (21:27)
[2022-11-26] MEDS: POLYETHYLENE GLYCOL (HEALTHYLAX) 3350 17 GM PACKET PO SCH ×3 (05:08→22:18)
[2022-11-26] MEDS: GABAPENTIN 300 MG CAPSULE PO SCH ×3 (05:25→22:19)
[2022-11-26 08:04] LABS: BASO % 0.4 % (0-2.0); EOS % 2.9 % (0-4.5); HEMATOCRIT 29.8 % (35.4-49); HEMOGLOBIN 9.5 GM/dL (11.7-16.9); LYMPH % 21.6 % (8-40); MCH 23.7 pg (25.7-33.7); MEAN CELL VOLUME 73.9 fl (80-96); MEAN PLT VOLUME 7.5 fl (7.5-11.1); MONO % 12.1 % (3.8-10.2); PLATELET COUNT 227 10^3/uL (134-434); RBC 4.04 M/mm3 (4.00-5.60); RDW 19.8 % (11.9-15.9); WHITE BLOOD COUNT 7.4 K/mm3 (4.0-10.0)
[2022-11-26 08:12] LABS: CALCIUM 8.8 mg/dL (8.5-10.1)
[2022-11-26 08:13] LABS: BLOOD UREA NITROGEN 6.2 mg/dL (7-18); INR 1.23 (0.83-1.09); PROTHROMBIN TIME (PATIENT) 14.2 SEC (9.7-13.0)
[2022-11-26 08:17] LABS: BILIRUBIN,TOTAL 0.7 mg/dL (0.2-1); CREATININE 0.6 mg/dL (0.55-1.3); TOT PROT 5.2 g/dl (6.4-8.2)
[2022-11-26] MEDS: TAMSULOSIN HCL 0.4 MG CAP PO SCH (08:34)
[2022-11-26] MEDS: LOSARTAN POTASSIUM 50 MG TABLET PO SCH (09:51)
[2022-11-26] MEDS: FINASTERIDE 5 MG TABLET (FP) PO SCH (09:51)
[2022-11-26] MEDS: ESCITALOPRAM OXALATE 10 MG TABLET PO SCH ×2 (09:51→22:19)
[2022-11-26] MEDS: MONTELUKAST NA 10 MG TABLET PO SCH (09:52)
[2022-11-26] MEDS: metFORMIN HCL 500 MG TABLET (FP) PO SCH ×2 (09:52→22:28)
[2022-11-26] MEDS: PANTOPRAZOLE 20 MG TABLET PO SCH (09:53)
[2022-11-26] MEDS: RANOLAZINE E.R. 500 MG TABLET (FP) PO SCH ×2 (09:53→22:19)
[2022-11-26] MEDS: guaiFENesin 600 MG TABLET.ER (FP) PO SCH (09:53)
[2022-11-26] MEDS: BUDESONIDE/FORMETEROL FUMARATE 160/4.5 mcg INHALER IH SCH ×2 (09:54→22:20)
[2022-11-26] MEDS: TIOTROPIUM BROMIDE 2.5 MCG (SPIRIVA) RESPIMAT INHALER IH SCH (09:54)
[2022-11-26] MEDS: oxyCODONE HCL 5 MG TABLET PO PRN (13:48)
[2022-11-26] MEDS: ACETAMINOPHEN 325 MG TABLET (FP) PO PRN (13:50)
[2022-11-26] MEDS ORDERED: ENOXAPARIN NA (PORCINE) 80 MG/0.8 ML DISP.SYRIN SQ SCH ×2 (15:00→18:27)
[2022-11-26] MEDS ORDERED: PATIENT'S OWN MEDICATION (NON-FORMULARY) (Famotidine 40 MG Tablet) PO SCH (22:00)
[2022-11-26] MEDS ORDERED: PATIENT'S OWN MEDICATION (NON-FORMULARY) (Budesonide/Glycopyr/Formoterol [Breztri Aerosphe IH SCH (22:00)
[2022-11-26] MEDS: FAMOTIDINE 20 MG TABLET PO SCH (22:19)
[2022-11-26] MEDS: ROSUVASTATIN CA 10 MG TABLET PO SCH (22:19)
[2022-11-26] MEDS: ENOXAPARIN NA (PORCINE) 80 MG/0.8 ML DISP.SYRIN SQ SCH (22:20)
[2022-11-27] MEDS: ACETAMINOPHEN 325 MG TABLET (FP) PO PRN ×3 (05:51→21:44)
[2022-11-27] MEDS: oxyCODONE HCL 5 MG TABLET PO PRN (05:51)
[2022-11-27] MEDS: GABAPENTIN 300 MG CAPSULE PO SCH ×3 (05:51→21:45)
[2022-11-27] MEDS: POLYETHYLENE GLYCOL (HEALTHYLAX) 3350 17 GM PACKET PO SCH ×3 (05:56→21:38)
[2022-11-27 09:18] LABS: HEMATOCRIT 30.8 % (35.4-49); HEMOGLOBIN 9.7 GM/dL (11.7-16.9); MCH 23.6 pg (25.7-33.7); MCHC 31.7 g/dl (32.0-35.9); MEAN CELL VOLUME 74.4 fl (80-96); MEAN PLT VOLUME 8.1 fl (7.5-11.1); PLATELET COUNT 243 10^3/uL (134-434); RBC 4.13 M/mm3 (4.00-5.60); RDW 20.1 % (11.9-15.9); WHITE BLOOD COUNT 8.1 K/mm3 (4.0-10.0)
[2022-11-27] MEDS: MONTELUKAST NA 10 MG TABLET PO SCH (09:26)
[2022-11-27] MEDS: RANOLAZINE E.R. 500 MG TABLET (FP) PO SCH ×2 (09:26→21:45)
[2022-11-27] MEDS: FAMOTIDINE 20 MG TABLET PO SCH ×2 (09:26→21:45)
[2022-11-27] MEDS: TAMSULOSIN HCL 0.4 MG CAP PO SCH (09:26)
[2022-11-27] MEDS: PANTOPRAZOLE 20 MG TABLET PO SCH (09:26)
[2022-11-27] MEDS: FERROUS SO4 325 MG TABLET (FP) PO SCH (09:27)
[2022-11-27] MEDS: ENOXAPARIN NA (PORCINE) 80 MG/0.8 ML DISP.SYRIN SQ SCH ×2 (09:27→21:46)
[2022-11-27] MEDS: predniSONE 20 MG TABLET (UD) PO SCH (09:27)
[2022-11-27] MEDS: FINASTERIDE 5 MG TABLET (FP) PO SCH (09:27)
[2022-11-27] MEDS: LOSARTAN POTASSIUM 50 MG TABLET PO SCH (09:27)
[2022-11-27] MEDS: ESCITALOPRAM OXALATE 10 MG TABLET PO SCH ×2 (09:27→21:45)
[2022-11-27] MEDS: guaiFENesin 600 MG TABLET.ER (FP) PO SCH (09:27)
[2022-11-27] MEDS: PANTOPRAZOLE 40 MG TABLET PO SCH (09:27)
[2022-11-27] MEDS: TIOTROPIUM BROMIDE 2.5 MCG (SPIRIVA) RESPIMAT INHALER IH SCH (09:28)
[2022-11-27] MEDS: metFORMIN HCL 500 MG TABLET (FP) PO SCH ×2 (09:28→21:38)
[2022-11-27] MEDS: BUDESONIDE/FORMETEROL FUMARATE 160/4.5 mcg INHALER IH SCH ×2 (09:29→21:46)
[2022-11-27] MEDS ORDERED: PATIENT'S OWN MEDICATION (NON-FORMULARY) (Ferrous Sulfate [Iron] 325 MG Tablet) PO SCH (10:00)
[2022-11-27 10:03] LABS: BLOOD UREA NITROGEN 4.9 mg/dL (7-18); CALCIUM 8.8 mg/dL (8.5-10.1)
[2022-11-27 10:04] LABS: ALBUMIN 3.1 g/dl (3.4-5.0)
[2022-11-27 10:06] LABS: CREATININE 0.6 mg/dL (0.55-1.3)
[2022-11-27 10:08] LABS: TOT PROT 5.5 g/dl (6.4-8.2)
[2022-11-27 10:48] LABS: ANISOCYTOSIS 3+; MACROCYTOSIS 0; OVALOCYTE 1+
[2022-11-27] MEDS ORDERED: BISACODYL 5 MG TABLET.DR (FP) PO ONE (16:00)
[2022-11-27] MEDS ORDERED: PEG 3350/NA SULF BICARB CL/KCL 4000 ML SOLN.RECON PO ONE (17:00)
[2022-11-27] MEDS: ROSUVASTATIN CA 10 MG TABLET PO SCH (21:45)
[2022-11-28] MEDS: ACETAMINOPHEN 325 MG TABLET (FP) PO PRN (03:47)
[2022-11-28] MEDS: GABAPENTIN 300 MG CAPSULE PO SCH (06:42)
[2022-11-28] MEDS: POLYETHYLENE GLYCOL (HEALTHYLAX) 3350 17 GM PACKET PO SCH (06:42)
[2022-11-28 08:36] LABS: INR 1.35 (0.83-1.09); PROTHROMBIN TIME (PATIENT) 15.6 SEC (9.7-13.0)
[2022-11-28 08:37] LABS: BASO % 0.7 % (0-2.0); EOS % 2.4 % (0-4.5); HEMATOCRIT 27.4 % (35.4-49); HEMOGLOBIN 8.9 GM/dL (11.7-16.9); LYMPH % 29.1 % (8-40); MCH 23.8 pg (25.7-33.7); MCHC 32.6 g/dl (32.0-35.9); MEAN PLT VOLUME 7.5 fl (7.5-11.1); MONO % 13.3 % (3.8-10.2); NEUT % 54.5 % (42.8-82.8); PLATELET COUNT 245 10^3/uL (134-434); RBC 3.75 M/mm3 (4.00-5.60); RDW 19.7 % (11.9-15.9)
[2022-11-28 09:31] LABS: CALCIUM 8.8 mg/dL (8.5-10.1)
[2022-11-28 09:32] LABS: BLOOD UREA NITROGEN 5.3 mg/dL (7-18)
[2022-11-28 09:35] LABS: CREATININE 0.6 mg/dL (0.55-1.3)
[2022-11-28] MEDS ORDERED: AZITHROMYCIN 250 MG TABLET PO SCH (10:00)
[2022-11-28] MEDS: MONTELUKAST NA 10 MG TABLET PO SCH (10:55)
[2022-11-28] MEDS: guaiFENesin 600 MG TABLET.ER (FP) PO SCH (10:55)
[2022-11-28] MEDS: metFORMIN HCL 500 MG TABLET (FP) PO SCH (10:55)
[2022-11-28] MEDS: predniSONE 20 MG TABLET (UD) PO SCH (10:55)
[2022-11-28] MEDS: PANTOPRAZOLE 20 MG TABLET PO SCH (10:55)
[2022-11-28] MEDS: FINASTERIDE 5 MG TABLET (FP) PO SCH (10:55)
[2022-11-28] MEDS: LOSARTAN POTASSIUM 50 MG TABLET PO SCH (10:56)
[2022-11-28] MEDS: RANOLAZINE E.R. 500 MG TABLET (FP) PO SCH (10:56)
[2022-11-28] MEDS: FAMOTIDINE 20 MG TABLET PO SCH (10:56)
[2022-11-28] MEDS: ESCITALOPRAM OXALATE 10 MG TABLET PO SCH (10:56)
[2022-11-28] MEDS: BUDESONIDE/FORMETEROL FUMARATE 160/4.5 mcg INHALER IH SCH (10:56)
[2022-11-28] MEDS: FERROUS SO4 325 MG TABLET (FP) PO SCH (10:56)
[2022-11-28] MEDS: TAMSULOSIN HCL 0.4 MG CAP PO SCH (10:57)
[2022-11-28] MEDS: PANTOPRAZOLE 40 MG TABLET PO SCH (10:58)
[2022-11-28] MEDS: TIOTROPIUM BROMIDE 2.5 MCG (SPIRIVA) RESPIMAT INHALER IH SCH (10:58)
[2022-11-28 11:50] VITALS: BP 134/71; PULSE 84; RESP 22; TEMP 98.4
[2022-11-29] MEDS ORDERED: FLUTICASONE/UMECLIDIN/VILANTER(200-62.5-25 TRELEGY ELLIPTA) INAHLER IH SCH (10:00)
== END 2022-11-28 13:59 | disposition home or self-care (01) | DRG 375 ==
LOC: JER 14:19 → JERBED 19:00 → J4W 11-23 18:51
PROVIDERS: ADMIT Internal Medicine; ATTEND Internal Medicine
PROC: 30233N1 Transfusion of Nonautologous Red Blood Cells into Peripheral Vein, Percutaneous Approach (ICD-10-PCS; 2022-11-22)
PROC: 0DB68ZX Excision of Stomach, Via Natural or Artificial Opening Endoscopic, Diagnostic (ICD-10-PCS; 2022-11-25)
PROC: 0DB58ZX Excision of Esophagus, Via Natural or Artificial Opening Endoscopic, Diagnostic (ICD-10-PCS; principal; 2022-11-25 10:30)
PROC: 3E0H8GC Introduction of Other Therapeutic Substance into Lower GI, Via Natural or Artificial Opening Endoscopic (ICD-10-PCS; 2022-11-28)
PROC: 0DBE8ZX Excision of Large Intestine, Via Natural or Artificial Opening Endoscopic, Diagnostic (ICD-10-PCS; 2022-11-28)
DX: D37.9 Neoplasm of uncertain behavior of digestive organ, unspecified (principal); D62 Acute posthemorrhagic anemia; K92.1 Melena; I48.21 Permanent atrial fibrillation; K63.89 Other specified diseases of intestine; I10 Essential (primary) hypertension; E11.9 Type 2 diabetes mellitus without complications; E78.5 Hyperlipidemia, unspecified; K29.50 Unspecified chronic gastritis without bleeding; K64.8 Other hemorrhoids; K57.30 Diverticulosis of large intestine without perforation or abscess without bleeding; K21.9 Gastro-esophageal reflux disease without esophagitis; N40.0 Benign prostatic hyperplasia without lower urinary tract symptoms
CPT/HCPCS: 0241U-QW; 36415; 36430; 70450-TC; 71045-TC-FY; 71250-TC; 72125-TC; 72128-TC; 72131-TC; 72170-TC-FY; 80048; 80053; 82272; 82607; 82728; 82962; 83540; 84155; 84156; 84157; 84165; 84484; 85025; 85610; 85651; 85730; 86480; 86850; 86900; 86901; 86922; 88305-TC; 90715; 93005; 93010; 93880-TC; 97116-GP; 97162-GP; 99285-25; P9058

== ENCOUNTER 2022-12-23 17:13 | Inpatient (IN) | payer OTHER, BC ==
[2022-12-23 17:18] VITALS: BMI 26.6
[2022-12-23 18:33] LABS: BASO % 0.4 % (0-2.0); HEMATOCRIT 34.3 % (35.4-49); HEMOGLOBIN 10.8 GM/dL (11.7-16.9); LYMPH % 27.2 % (8-40); MCH 24.8 pg (25.7-33.7); MCHC 31.3 g/dl (32.0-35.9); MEAN CELL VOLUME 79.2 fl (80-96); MONO % 10.1 % (3.8-10.2); NEUT % 60.3 % (42.8-82.8); PLATELET COUNT 219 10^3/uL (134-434); RBC 4.34 M/mm3 (4.00-5.60); WHITE BLOOD COUNT 8.9 K/mm3 (4.0-10.0)
[2022-12-23 18:39] LABS: INR 1.2 (0.83-1.09); PROTHROMBIN TIME (PATIENT) 13.9 SEC (9.7-13.0)
[2022-12-23 18:41] LABS: ACTIVATED PTT 29.6 SECONDS (25.2-36.5)
[2022-12-23 18:51] LABS: POTASSIUM 4.5 mmol/L (3.5-5.1)
[2022-12-23 18:53] LABS: CALCIUM 9.1 mg/dL (8.5-10.1)
[2022-12-23 18:54] LABS: ALBUMIN 3.7 g/dl (3.4-5.0); BLOOD UREA NITROGEN 9.5 mg/dL (7-18); MAGNESIUM 1.5 mg/dL (1.8-2.4)
[2022-12-23 18:57] LABS: CREATININE 0.7 mg/dL (0.55-1.3)
[2022-12-23 18:58] LABS: BILIRUBIN,TOTAL 0.4 mg/dL (0.2-1); TOT PROT 6.1 g/dl (6.4-8.2)
[2022-12-23 19:24] LABS: ANISOCYTOSIS 3+; MACROCYTOSIS 0
[2022-12-23] MEDS ORDERED: MAGNESIUM SULFATE IN WATER 2 GM/50 ML IVPB IVPB ONE (19:52)
[2022-12-23 21:26] LABS: BASO % 0.5 % (0-2.0); EOS % 1.7 % (0-4.5); HEMATOCRIT 28.7 % (35.4-49); LYMPH % 27.3 % (8-40); MCHC 31.5 g/dl (32.0-35.9); MEAN CELL VOLUME 79.3 fl (80-96); MONO % 9.3 % (3.8-10.2); NEUT % 61.2 % (42.8-82.8); PLATELET COUNT 182 10^3/uL (134-434); RBC 3.62 M/mm3 (4.00-5.60); RDW 24.9 % (11.9-15.9); WHITE BLOOD COUNT 6.7 K/mm3 (4.0-10.0)
[2022-12-23 22:25] LABS: ANISOCYTOSIS 3+; MACROCYTOSIS 0
[2022-12-24] MEDS ORDERED: ALBUTEROL SO4 0.083% IH SOL 2.5 MG/3 ML VIAL.NEB. NEB PRN (05:56)
[2022-12-24] MEDS ORDERED: SODIUM CHLORIDE NASAL SPRAY 44 ML BOTTLE NS PRN (05:56)
[2022-12-24] MEDS ORDERED: ALBUTEROL SO4 HFA INHALER IH PRN (05:56)
[2022-12-24] MEDS: GABAPENTIN 300 MG CAPSULE PO SCH ×3 (09:50→21:30)
[2022-12-24] MEDS: RANOLAZINE E.R. 500 MG TABLET (FP) PO SCH ×2 (09:50→21:30)
[2022-12-24] MEDS: FINASTERIDE 5 MG TABLET (FP) PO SCH (09:50)
[2022-12-24] MEDS: guaiFENesin 600 MG TABLET.ER (FP) PO SCH (09:50)
[2022-12-24] MEDS: metFORMIN HCL 500 MG TABLET (FP) PO SCH ×2 (09:51→16:58)
[2022-12-24] MEDS: LOSARTAN POTASSIUM 50 MG TABLET PO SCH (09:51)
[2022-12-24] MEDS: TAMSULOSIN HCL 0.4 MG CAP PO SCH (09:51)
[2022-12-24] MEDS: methylPREDNISolone NA SUCC 40 MG/1 ML VIAL IVPUSH SCH ×2 (09:51→18:38)
[2022-12-24] MEDS: PANTOPRAZOLE 40 MG TABLET PO SCH (09:51)
[2022-12-24] MEDS: ESCITALOPRAM OXALATE 20 MG TABLET PO SCH (09:51)
[2022-12-24] MEDS: FERROUS SO4 325 MG TABLET (FP) PO SCH (09:51)
[2022-12-24 09:57] LABS: BASO % 0.5 % (0-2.0); HEMATOCRIT 35.1 % (35.4-49); HEMOGLOBIN 10.9 GM/dL (11.7-16.9); LYMPH % 29.7 % (8-40); MCH 24.7 pg (25.7-33.7); MEAN CELL VOLUME 79.8 fl (80-96); MEAN PLT VOLUME 7.3 fl (7.5-11.1); MONO % 8.5 % (3.8-10.2); NEUT % 59.3 % (42.8-82.8); PLATELET COUNT 221 10^3/uL (134-434); RBC 4.41 M/mm3 (4.00-5.60); RDW 25.5 % (11.9-15.9); WHITE BLOOD COUNT 8.7 K/mm3 (4.0-10.0)
[2022-12-24] MEDS ORDERED: TIOTROPIUM BROMIDE 2.5 MCG (SPIRIVA) RESPIMAT INHALER IH SCH (10:00)
[2022-12-24] MEDS ORDERED: PATIENT'S OWN MEDICATION (NON-FORMULARY) (Budesonide/Glycopyr/Formoterol [Breztri Aerosphe IH SCH (10:00)
[2022-12-24] MEDS ORDERED: FAMOTIDINE 40 MG TABLET PO SCH (10:00)
[2022-12-24 10:20] LABS: POTASSIUM 4.2 mmol/L (3.5-5.1)
[2022-12-24 10:24] LABS: ALBUMIN 3.9 g/dl (3.4-5.0); BLOOD UREA NITROGEN 9.6 mg/dL (7-18); CALCIUM 9.1 mg/dL (8.5-10.1)
[2022-12-24 10:27] LABS: CREATININE 0.6 mg/dL (0.55-1.3)
[2022-12-24 10:28] LABS: BILIRUBIN,TOTAL 0.9 mg/dL (0.2-1); TOT PROT 6.2 g/dl (6.4-8.2)
[2022-12-24] MEDS: POLYETHYLENE GLYCOL (HEALTHYLAX) 3350 17 GM PACKET PO PRN (13:16)
[2022-12-24] MEDS: ACETAMINOPHEN 325 MG TABLET (FP) PO PRN (13:16)
[2022-12-24] MEDS ORDERED: FLU VACC QS2022-23(6MOS UP)/PF 60 MCG/0.5 ML SYRINGE IM ONE (14:00)
[2022-12-24] MEDS: FLUTICASONE/UMECLIDIN/VILANTER(200-62.5-25 TRELEGY ELLIPTA) INAHLER IH SCH ×2 (16:58→17:07)
[2022-12-24] MEDS: RIVAROXABAN 20 MG TABLET PO SCH (18:38)
[2022-12-24] MEDS: ROSUVASTATIN CA 10 MG TABLET PO SCH (21:30)
[2022-12-24] MEDS: MONTELUKAST NA 10 MG TABLET PO SCH (21:30)
[2022-12-24] MEDS: FAMOTIDINE 20 MG TABLET PO SCH (21:56)
[2022-12-24 23:40] LABS: LACTIC ACID 5.2 mmol/L (0.4-2.0)
[2022-12-25] MEDS ORDERED: SODIUM CHLORIDE 1,000 ML IV SCH (00:05)
[2022-12-25] MEDS ORDERED: SODIUM CHLORIDE 0.9% 500 ML INFUS.BAG IV ONE (00:32)
[2022-12-25] MEDS: GABAPENTIN 300 MG CAPSULE PO SCH ×3 (06:00→21:27)
[2022-12-25] MEDS: metFORMIN HCL 500 MG TABLET (FP) PO SCH ×2 (06:01→16:29)
[2022-12-25 08:18] LABS: HEMATOCRIT 29.2 % (35.4-49); HEMOGLOBIN 9.4 GM/dL (11.7-16.9); LYMPH % 9.1 % (8-40); MCH 25.3 pg (25.7-33.7); MCHC 32.1 g/dl (32.0-35.9); MEAN CELL VOLUME 78.9 fl (80-96); MEAN PLT VOLUME 7.2 fl (7.5-11.1); NEUT % 84.9 % (42.8-82.8); PLATELET COUNT 173 10^3/uL (134-434); WHITE BLOOD COUNT 7.5 K/mm3 (4.0-10.0)
[2022-12-25 08:49] LABS: LACTIC ACID 2.4 mmol/L (0.4-2.0)
[2022-12-25] MEDS: FERROUS SO4 325 MG TABLET (FP) PO SCH (10:17)
[2022-12-25] MEDS: guaiFENesin 600 MG TABLET.ER (FP) PO SCH (10:17)
[2022-12-25] MEDS: ESCITALOPRAM OXALATE 20 MG TABLET PO SCH (10:17)
[2022-12-25] MEDS: FAMOTIDINE 20 MG TABLET PO SCH ×2 (10:17→21:26)
[2022-12-25] MEDS: FINASTERIDE 5 MG TABLET (FP) PO SCH (10:17)
[2022-12-25] MEDS: TAMSULOSIN HCL 0.4 MG CAP PO SCH (10:17)
[2022-12-25] MEDS: LOSARTAN POTASSIUM 50 MG TABLET PO SCH (10:17)
[2022-12-25] MEDS: RANOLAZINE E.R. 500 MG TABLET (FP) PO SCH ×2 (10:17→21:27)
[2022-12-25] MEDS: predniSONE 10 MG TABLET (UD) PO SCH (10:17)
[2022-12-25] MEDS: FLUTICASONE/UMECLIDIN/VILANTER(200-62.5-25 TRELEGY ELLIPTA) INAHLER IH SCH (10:19)
[2022-12-25] MEDS: ACETAMINOPHEN 325 MG TABLET (FP) PO PRN (10:22)
[2022-12-25] MEDS: POLYETHYLENE GLYCOL (HEALTHYLAX) 3350 17 GM PACKET PO PRN (10:24)
[2022-12-25] MEDS: PANTOPRAZOLE 40 MG TABLET PO SCH (14:54)
[2022-12-25] MEDS: RIVAROXABAN 20 MG TABLET PO SCH (17:39)
[2022-12-25] MEDS: MONTELUKAST NA 10 MG TABLET PO SCH (21:27)
[2022-12-25] MEDS: ROSUVASTATIN CA 10 MG TABLET PO SCH (21:27)
[2022-12-25] MEDS: oxyCODONE HCL 5 MG TABLET PO PRN (22:37)
[2022-12-26] MEDS: GABAPENTIN 300 MG CAPSULE PO SCH ×3 (05:10→21:36)
[2022-12-26] MEDS: metFORMIN HCL 500 MG TABLET (FP) PO SCH ×2 (06:20→16:56)
[2022-12-26 09:51] LABS: HEMATOCRIT 29.7 % (35.4-49); HEMOGLOBIN 9.5 GM/dL (11.7-16.9); MCH 25.7 pg (25.7-33.7); MCHC 32.1 g/dl (32.0-35.9); MEAN CELL VOLUME 80.2 fl (80-96); MEAN PLT VOLUME 7.5 fl (7.5-11.1); PLATELET COUNT 164 10^3/uL (134-434); RBC 3.71 M/mm3 (4.00-5.60); RDW 25.7 % (11.9-15.9); WHITE BLOOD COUNT 7.3 K/mm3 (4.0-10.0)
[2022-12-26 10:16] LABS: POTASSIUM 5.3 mmol/L (3.5-5.1)
[2022-12-26 10:18] LABS: ALBUMIN 3.3 g/dl (3.4-5.0); CALCIUM 8.9 mg/dL (8.5-10.1)
[2022-12-26 10:21] LABS: CREATININE 0.7 mg/dL (0.55-1.3)
[2022-12-26 10:23] LABS: BILIRUBIN,TOTAL 0.6 mg/dL (0.2-1); TOT PROT 5.5 g/dl (6.4-8.2)
[2022-12-26] MEDS: ALBUTEROL SO4 0.083% IH SOL 2.5 MG/3 ML VIAL.NEB. NEB SCH ×3 (11:46→20:10)
[2022-12-26] MEDS: TAMSULOSIN HCL 0.4 MG CAP PO SCH (12:15)
[2022-12-26] MEDS: predniSONE 10 MG TABLET (UD) PO SCH (12:16)
[2022-12-26] MEDS: ESCITALOPRAM OXALATE 20 MG TABLET PO SCH (12:16)
[2022-12-26] MEDS: PANTOPRAZOLE 40 MG TABLET PO SCH (12:16)
[2022-12-26] MEDS: RANOLAZINE E.R. 500 MG TABLET (FP) PO SCH ×2 (12:16→21:36)
[2022-12-26] MEDS: FINASTERIDE 5 MG TABLET (FP) PO SCH (12:17)
[2022-12-26] MEDS: guaiFENesin 600 MG TABLET.ER (FP) PO SCH (12:17)
[2022-12-26] MEDS: LOSARTAN POTASSIUM 50 MG TABLET PO SCH (12:18)
[2022-12-26] MEDS: FERROUS SO4 325 MG TABLET (FP) PO SCH (12:18)
[2022-12-26] MEDS: FLUTICASONE/UMECLIDIN/VILANTER(200-62.5-25 TRELEGY ELLIPTA) INAHLER IH SCH (12:32)
[2022-12-26] MEDS: oxyCODONE HCL 5 MG TABLET PO PRN ×2 (12:47→21:37)
[2022-12-26] MEDS ORDERED: IRON SUCROSE INJECTION 200 MG in SODIUM CHLORIDE 90 ML IVPB ONE (13:30)
[2022-12-26 16:40] LABS: LACTIC ACID 3.2 mmol/L (0.4-2.0)
[2022-12-26] MEDS: FAMOTIDINE 20 MG TABLET PO SCH (16:51)
[2022-12-26] MEDS ORDERED: INSULIN (NOVOLOG) ASPART 100 UNITS/ML 10ML VIAL ONE ×2 (17:06→21:22)
[2022-12-26] MEDS: INSULIN SLIDING SCALE (NOVOLOG) 1 VIAL SQ SCH ×2 (17:16→21:43)
[2022-12-26] MEDS: AZITHROMYCIN 250 MG TABLET PO SCH (17:58)
[2022-12-26] MEDS: RIVAROXABAN 20 MG TABLET PO SCH (17:58)
[2022-12-26] MEDS: ROSUVASTATIN CA 10 MG TABLET PO SCH (21:36)
[2022-12-26] MEDS: MONTELUKAST NA 10 MG TABLET PO SCH (21:36)
[2022-12-26] MEDS: POLYETHYLENE GLYCOL (HEALTHYLAX) 3350 17 GM PACKET PO SCH (21:36)
[2022-12-27] MEDS: INSULIN SLIDING SCALE (NOVOLOG) 1 VIAL SQ SCH ×4 (06:32→22:48)
[2022-12-27] MEDS: GABAPENTIN 300 MG CAPSULE PO SCH ×3 (06:32→22:47)
[2022-12-27] MEDS: metFORMIN HCL 500 MG TABLET (FP) PO SCH ×2 (06:32→16:31)
[2022-12-27] MEDS: ALBUTEROL SO4 0.083% IH SOL 2.5 MG/3 ML VIAL.NEB. NEB SCH ×4 (08:12→20:00)
[2022-12-27 08:22] LABS: POTASSIUM 4.2 mmol/L (3.5-5.1)
[2022-12-27 08:24] LABS: CALCIUM 8.6 mg/dL (8.5-10.1)
[2022-12-27 08:25] LABS: ALBUMIN 3.1 g/dl (3.4-5.0); BLOOD UREA NITROGEN 9.5 mg/dL (7-18)
[2022-12-27 08:27] LABS: BASO % 0.2 % (0-2.0); EOS % 1.7 % (0-4.5); HEMATOCRIT 28.6 % (35.4-49); HEMOGLOBIN 9.2 GM/dL (11.7-16.9); LYMPH % 24.9 % (8-40); MCH 25.4 pg (25.7-33.7); MCHC 32.1 g/dl (32.0-35.9); MEAN CELL VOLUME 79.2 fl (80-96); MEAN PLT VOLUME 7.3 fl (7.5-11.1); MONO % 10.3 % (3.8-10.2); NEUT % 62.9 % (42.8-82.8); PLATELET COUNT 152 10^3/uL (134-434); RBC 3.61 M/mm3 (4.00-5.60); RDW 26.2 % (11.9-15.9); WHITE BLOOD COUNT 6.9 K/mm3 (4.0-10.0)
[2022-12-27 08:28] LABS: CREATININE 0.5 mg/dL (0.55-1.3)
[2022-12-27 08:29] LABS: BILIRUBIN,TOTAL 0.7 mg/dL (0.2-1); TOT PROT 5.3 g/dl (6.4-8.2)
[2022-12-27 09:12] LABS: ANISOCYTOSIS 3+; MACROCYTOSIS 0; OVALOCYTE 1+
[2022-12-27] MEDS ORDERED: MAG HYDROX/AL HYDROX/SIMETH 30 ML UNIT-DOSE CUP PO PRN (09:51)
[2022-12-27] MEDS ORDERED: IRON SUCROSE INJECTION 200 MG in SODIUM CHLORIDE 90 ML IVPB ONE (10:00)
[2022-12-27] MEDS: FINASTERIDE 5 MG TABLET (FP) PO SCH (10:23)
[2022-12-27] MEDS: guaiFENesin 600 MG TABLET.ER (FP) PO SCH (10:23)
[2022-12-27] MEDS: LOSARTAN POTASSIUM 50 MG TABLET PO SCH (10:23)
[2022-12-27] MEDS: ESCITALOPRAM OXALATE 20 MG TABLET PO SCH (10:23)
[2022-12-27] MEDS: RANOLAZINE E.R. 500 MG TABLET (FP) PO SCH ×2 (10:23→22:47)
[2022-12-27] MEDS: predniSONE 10 MG TABLET (UD) PO SCH (10:23)
[2022-12-27] MEDS: PANTOPRAZOLE 40 MG TABLET PO SCH (10:23)
[2022-12-27] MEDS: FERROUS SO4 325 MG TABLET (FP) PO SCH (10:23)
[2022-12-27] MEDS: POLYETHYLENE GLYCOL (HEALTHYLAX) 3350 17 GM PACKET PO SCH ×2 (10:23→22:47)
[2022-12-27] MEDS: FLUTICASONE/UMECLIDIN/VILANTER(200-62.5-25 TRELEGY ELLIPTA) INAHLER IH SCH (10:24)
[2022-12-27] MEDS: TAMSULOSIN HCL 0.4 MG CAP PO SCH (10:24)
[2022-12-27] MEDS: oxyCODONE HCL 5 MG TABLET PO PRN (15:22)
[2022-12-27] MEDS: RIVAROXABAN 20 MG TABLET PO SCH (17:39)
[2022-12-27] MEDS ORDERED: INSULIN (NOVOLOG) ASPART 100 UNITS/ML 10ML VIAL ONE (22:16)
[2022-12-27] MEDS: MONTELUKAST NA 10 MG TABLET PO SCH (22:47)
[2022-12-27] MEDS: ROSUVASTATIN CA 10 MG TABLET PO SCH (22:48)
[2022-12-27] MEDS: ACETAMINOPHEN 325 MG TABLET (FP) PO PRN (22:53)
[2022-12-28] MEDS: oxyCODONE HCL 5 MG TABLET PO PRN ×2 (03:29→22:40)
[2022-12-28] MEDS: INSULIN SLIDING SCALE (NOVOLOG) 1 VIAL SQ SCH ×4 (06:48→22:41)
[2022-12-28] MEDS: GABAPENTIN 300 MG CAPSULE PO SCH ×3 (06:48→22:41)
[2022-12-28] MEDS: metFORMIN HCL 500 MG TABLET (FP) PO SCH ×2 (06:48→16:39)
[2022-12-28] MEDS: ALBUTEROL SO4 0.083% IH SOL 2.5 MG/3 ML VIAL.NEB. NEB SCH ×4 (07:36→20:16)
[2022-12-28] MEDS: TAMSULOSIN HCL 0.4 MG CAP PO SCH (08:55)
[2022-12-28 09:47] VITALS: RESP 18
[2022-12-28] MEDS: guaiFENesin 600 MG TABLET.ER (FP) PO SCH (09:47)
[2022-12-28] MEDS: POLYETHYLENE GLYCOL (HEALTHYLAX) 3350 17 GM PACKET PO SCH ×2 (09:47→22:41)
[2022-12-28] MEDS: predniSONE 10 MG TABLET (UD) PO SCH (09:48)
[2022-12-28] MEDS: FERROUS SO4 325 MG TABLET (FP) PO SCH (09:48)
[2022-12-28] MEDS: AZITHROMYCIN 250 MG TABLET PO SCH (09:48)
[2022-12-28] MEDS: RANOLAZINE E.R. 500 MG TABLET (FP) PO SCH ×2 (09:48→22:41)
[2022-12-28] MEDS: LOSARTAN POTASSIUM 50 MG TABLET PO SCH (09:49)
[2022-12-28] MEDS: PANTOPRAZOLE 40 MG TABLET PO SCH (09:49)
[2022-12-28] MEDS: ESCITALOPRAM OXALATE 20 MG TABLET PO SCH (09:49)
[2022-12-28] MEDS: FINASTERIDE 5 MG TABLET (FP) PO SCH (09:49)
[2022-12-28] MEDS ORDERED: IRON SUCROSE INJECTION 200 MG in SODIUM CHLORIDE 90 ML IVPB ONE (10:00)
[2022-12-28] MEDS: FLUTICASONE/UMECLIDIN/VILANTER(200-62.5-25 TRELEGY ELLIPTA) INAHLER IH SCH (10:09)
[2022-12-28] MEDS: ACETAMINOPHEN 325 MG TABLET (FP) PO PRN (11:51)
[2022-12-28] MEDS ORDERED: INSULIN (NOVOLOG) ASPART 100 UNITS/ML 10ML VIAL ONE ×2 (16:44→22:01)
[2022-12-28] MEDS: RIVAROXABAN 20 MG TABLET PO SCH (17:21)
[2022-12-28] MEDS: ROSUVASTATIN CA 10 MG TABLET PO SCH (22:41)
[2022-12-28] MEDS: MONTELUKAST NA 10 MG TABLET PO SCH (22:41)
[2022-12-29] MEDS: GABAPENTIN 300 MG CAPSULE PO SCH ×2 (06:26→14:22)
[2022-12-29] MEDS: metFORMIN HCL 500 MG TABLET (FP) PO SCH (06:27)
[2022-12-29] MEDS: INSULIN SLIDING SCALE (NOVOLOG) 1 VIAL SQ SCH ×2 (06:27→11:19)
[2022-12-29] MEDS: ALBUTEROL SO4 0.083% IH SOL 2.5 MG/3 ML VIAL.NEB. NEB SCH ×3 (08:17→12:06)
[2022-12-29] MEDS: FERROUS SO4 325 MG TABLET (FP) PO SCH (10:34)
[2022-12-29] MEDS: predniSONE 10 MG TABLET (UD) PO SCH (10:34)
[2022-12-29] MEDS: LOSARTAN POTASSIUM 50 MG TABLET PO SCH (10:34)
[2022-12-29] MEDS: PANTOPRAZOLE 40 MG TABLET PO SCH (10:34)
[2022-12-29] MEDS: FINASTERIDE 5 MG TABLET (FP) PO SCH (10:34)
[2022-12-29] MEDS: ESCITALOPRAM OXALATE 20 MG TABLET PO SCH (10:35)
[2022-12-29] MEDS: TAMSULOSIN HCL 0.4 MG CAP PO SCH (10:35)
[2022-12-29] MEDS: RANOLAZINE E.R. 500 MG TABLET (FP) PO SCH (10:35)
[2022-12-29] MEDS: guaiFENesin 600 MG TABLET.ER (FP) PO SCH (10:35)
[2022-12-29] MEDS: POLYETHYLENE GLYCOL (HEALTHYLAX) 3350 17 GM PACKET PO SCH (10:36)
[2022-12-29] MEDS: FLUTICASONE/UMECLIDIN/VILANTER(200-62.5-25 TRELEGY ELLIPTA) INAHLER IH SCH ×2 (10:36→10:44)
[2022-12-29] MEDS: oxyCODONE HCL 5 MG TABLET PO PRN (11:10)
[2022-12-29 15:20] VITALS: BP 141/99; PULSE 100; TEMP 97.5
== END 2022-12-29 15:20 | disposition home health service (06) | DRG 375 ==
LOC: JER 17:13 → JERBED 23:57 → J7W 12-24 07:18
PROVIDERS: ADMIT Internal Medicine; ATTEND Internal Medicine
DX: C18.4 Malignant neoplasm of transverse colon (principal); E87.20 Acidosis, unspecified; J44.1 Chronic obstructive pulmonary disease with (acute) exacerbation; E78.5 Hyperlipidemia, unspecified; I10 Essential (primary) hypertension; K21.9 Gastro-esophageal reflux disease without esophagitis; N40.0 Benign prostatic hyperplasia without lower urinary tract symptoms; I48.0 Paroxysmal atrial fibrillation; K57.90 Diverticulosis of intestine, part unspecified, without perforation or abscess without bleeding; I25.10 Atherosclerotic heart disease of native coronary artery without angina pectoris; K59.00 Constipation, unspecified; F41.8 Other specified anxiety disorders; M54.59 Other low back pain; D64.9 Anemia, unspecified; E11.51 Type 2 diabetes mellitus with diabetic peripheral angiopathy without gangrene; I65.29 Occlusion and stenosis of unspecified carotid artery; R91.1 Solitary pulmonary nodule
CPT/HCPCS: 0241U-QW; 36415; 71045-TC-FY; 74174-TC; 80053; 82272; 82550; 82728; 82962; 83540; 83550; 83605; 83690; 83735; 83880; 84443; 84484; 85025; 85027; 85610; 85730; 86850; 86900; 86901; 93005; 93010; 93306-TC; 94640; 99285-25; G0008; J1756; Q2036; Q9967

== ENCOUNTER 2023-06-11 01:35 | Emergency (ER) | payer OTHER, BC ==
[2023-06-11 01:42] VITALS: BP 141/84; PULSE 61; RESP 20; BMI 25.0
[2023-06-11] MEDS ORDERED: BACITRACIN ZINC 15 GM TUBE TOPICAL OINTMENT ONE (02:37)
[2023-06-11] MEDS ORDERED: DIPHTH,PERTUSS(ACELL),TET 0.5 ML DISP.SYRIN IM ONE ×2 (03:02→03:07)
== END 2023-06-11 03:39 | disposition home or self-care (01) ==
LOC: JER 01:35
PROC: 3E0234Z Introduction of Serum, Toxoid and Vaccine into Muscle, Percutaneous Approach (ICD-10-PCS; principal; 2023-06-11)
DX: S51.811A Laceration without foreign body of right forearm, initial encounter (principal); S51.812A Laceration without foreign body of left forearm, initial encounter; X58.XXXA Exposure to other specified factors, initial encounter; Y92.9 Unspecified place or not applicable
CPT/HCPCS: 90471; 90715; 99283-25

== ENCOUNTER 2023-06-26 10:45 | Inpatient (IN) | payer OTHER, BC ==
[2023-06-27] MEDS ORDERED: ERTAPENEM SODIUM 1 GM in SODIUM CHLORIDE 50 ML IVPB ONE (07:00)
[2023-06-27] MEDS ORDERED: GABAPENTIN 300 MG CAPSULE PO ONE (10:30)
[2023-06-27] MEDS ORDERED: ACETAMINOPHEN 500 MG TABLET (FP) PO ONE (10:30)
[2023-06-27] MEDS ORDERED: SCOPOLAMINE HYDROBROMIDE 1 PATCH PATCH.TD72 TD ONE (10:30)
[2023-06-27] MEDS ORDERED: ONDANSETRON 4 MG/2 ML VIAL IVPUSH PRN (10:44)
[2023-06-27] MEDS ORDERED: LACTATED RINGERS SOLUTION 1,000 ML IV SCH ×3 (10:45→21:00)
[2023-06-27] MEDS ORDERED: FENTANYL CITRATE/PF 50 MCG/ML VIAL ONE ×3 (11:08→21:16)
[2023-06-27] MEDS ORDERED: MIDAZOLAM HCL 2 MG/2 ML SINGLE DOSE VIAL ONE (11:09)
[2023-06-27] MEDS ORDERED: PROPOFOL 20 ML ONE (11:09)
[2023-06-27] MEDS ORDERED: ROCURONIUM BROMIDE 50 MG/5 ML SYRINGE ONE ×3 (11:10→16:47)
[2023-06-27] MEDS ORDERED: CEFOXITIN SODIUM 1 GM in DEXTROSE 5%-WATER - 100 ML IVPB ONE ×2 (11:30→21:15)
[2023-06-27] MEDS ORDERED: BUPIVACAINE HCL/PF 0.25% (2.5MG/ML) 10 ML VIAL ONE (13:10)
[2023-06-27] MEDS ORDERED: cefOXitin SODIUM 2 GM VIAL (RESTRICTED TO ID) IVPB ONE ×2 (13:11→14:20)
[2023-06-27] MEDS ORDERED: HEPARIN NA (PORCINE) 5,000 UNITS/ML 1ML VIAL ONE (13:56)
[2023-06-27] MEDS ORDERED: ACETAMINOPHEN 325 MG TABLET (FP) PO PRN ×2 (14:35→20:59)
[2023-06-27] MEDS ORDERED: HYDROmorphone HCl 2 MG/ML VIAL ONE ×2 (15:02→20:08)
[2023-06-27] MEDS ORDERED: methylPREDNISolone NA SUCC 40 MG/1 ML VIAL IVPUSH SCH (15:30)
[2023-06-27] MEDS ORDERED: BUPIVACAINE HCL/PF 2.5 MG/ML - 30 ML VIAL IJ ONE (15:38)
[2023-06-27] MEDS ORDERED: INDOCYANINE GREEN 25 MG/10 ML VIAL IVPUSH ONE (16:27)
[2023-06-27] MEDS ORDERED: INSULIN SLIDING SCALE (NOVOLOG) 1 VIAL SQ SCH (16:30)
[2023-06-27] MEDS ORDERED: OXYTOCIN 10 UNITS/ML VIAL ONE (16:44)
[2023-06-27] MEDS ORDERED: SUGAMMADEX SODIUM 200 MG/2 ML VIAL ONE ×2 (16:47→20:01)
[2023-06-27] MEDS ORDERED: LABETALOL HCL 20 MG/4 ML VIAL ONE (19:17)
[2023-06-27] MEDS ORDERED: METOPROLOL TARTRATE 5 MG/5 ML VIAL ONE (19:17)
[2023-06-27] MEDS ORDERED: ALBUTEROL SO4 HFA INHALER IH ONE (19:34)
[2023-06-27] MEDS ORDERED: ALBUTEROL SO4 0.083% IH SOL 2.5 MG/3 ML VIAL.NEB. NEB ONE (20:38)
[2023-06-27] MEDS ORDERED: IPRATROPIUM BR 0.02% 0.5 MG/2.5 ML VIAL.NEB. NEB ONE ×3 (20:38→20:59)
[2023-06-27] MEDS ORDERED: ALBUTEROL SULFATE 0.021% (0.63 MG/3 ML) VIAL.NEB NEB ONE ×2 (20:47→20:59)
[2023-06-27] MEDS ORDERED: oxyCODONE HCL 5 MG TABLET PO PRN (21:09)
[2023-06-27 21:55] LABS: POTASSIUM 4.3 mmol/L (3.5-5.1)
[2023-06-27 21:56] LABS: CALCIUM 8.3 mg/dL (8.5-10.1)
[2023-06-27 21:57] LABS: BLOOD UREA NITROGEN 4.2 mg/dL (7-18); MAGNESIUM 1.3 mg/dL (1.8-2.4)
[2023-06-27 22:00] LABS: CREATININE 0.7 mg/dL (0.55-1.3); PHOSPHOROUS 4.3 mg/dL (2.5-4.9)
[2023-06-27] MEDS ORDERED: MUPIROCIN 2% TOPICAL OINTMENT FOR DECOLONIZATION NS SCH (22:00)
[2023-06-27] MEDS ORDERED: GABAPENTIN 300 MG CAPSULE PO SCH (22:00)
[2023-06-27] MEDS ORDERED: ROSUVASTATIN CA 10 MG TABLET PO SCH (22:00)
[2023-06-27] MEDS ORDERED: CHLORHEXIDINE GLUCONATE 4% CLEANSER FOR DECOLONIZATION TP SCH (22:00)
[2023-06-27] MEDS ORDERED: MAGNESIUM SULFATE IN WATER 2 GM/50 ML IVPB IVPB ONE (22:05)
[2023-06-27] MEDS ORDERED: METOPROLOL TARTRATE 50 MG TABLET (FP) PO SCH (23:01)
[2023-06-27] MEDS ORDERED: INSULIN (NOVOLOG) ASPART 100 UNITS/ML 10ML VIAL ONE (23:15)
[2023-06-27] MEDS: INSULIN SLIDING SCALE (NOVOLOG) 1 VIAL SQ SCH (23:27)
[2023-06-27] MEDS: METOPROLOL TARTRATE 50 MG TABLET (FP) PO SCH (23:28)
[2023-06-27] MEDS: ROSUVASTATIN CA 10 MG TABLET PO SCH (23:28)
[2023-06-27] MEDS: GABAPENTIN 300 MG CAPSULE PO SCH (23:38)
[2023-06-28] MEDS ORDERED: ACETAMINOPHEN 325 MG TABLET (FP) PO PRN (01:00)
[2023-06-28] MEDS: GABAPENTIN 300 MG CAPSULE PO SCH ×3 (06:23→21:23)
[2023-06-28] MEDS: INSULIN SLIDING SCALE (NOVOLOG) 1 VIAL SQ SCH ×4 (06:24→21:30)
[2023-06-28 06:55] LABS: BASO % 0.1 % (0-2.0); HEMATOCRIT 35.6 % (35.4-49); HEMOGLOBIN 11.3 GM/dL (11.7-16.9); LYMPH % 5.2 % (8-40); MCH 30.9 pg (25.7-33.7); MCHC 31.8 g/dl (32.0-35.9); MEAN PLT VOLUME 7.3 fl (7.5-11.1); MONO % 7.4 % (3.8-10.2); NEUT % 87.3 % (42.8-82.8); PLATELET COUNT 203 10^3/uL (134-434); RBC 3.67 M/mm3 (4.00-5.60); RDW 13.3 % (11.9-15.9); WHITE BLOOD COUNT 13.5 K/mm3 (4.0-10.0)
[2023-06-28 07:20] LABS: POTASSIUM 4.1 mmol/L (3.5-5.1)
[2023-06-28 07:21] LABS: CALCIUM 8.6 mg/dL (8.5-10.1)
[2023-06-28 07:22] LABS: ALBUMIN 2.9 g/dl (3.4-5.0); BLOOD UREA NITROGEN 4.7 mg/dL (7-18); MAGNESIUM 1.8 mg/dL (1.8-2.4)
[2023-06-28 07:25] LABS: CREATININE 0.7 mg/dL (0.55-1.3)
[2023-06-28 07:27] LABS: BILIRUBIN,TOTAL 0.8 mg/dL (0.2-1); TOT PROT 5.2 g/dl (6.4-8.2)
[2023-06-28] MEDS: METOPROLOL TARTRATE 50 MG TABLET (FP) PO SCH (09:14)
[2023-06-28] MEDS ORDERED: METOPROLOL TARTRATE 50 MG TABLET (FP) PO SCH (10:00)
[2023-06-28] MEDS ORDERED: PANTOPRAZOLE 40 MG TABLET PO SCH ×2 (10:00)
[2023-06-28] MEDS ORDERED: LOSARTAN POTASSIUM 25 MG TABLET PO SCH ×2 (10:00)
[2023-06-28] MEDS ORDERED: ESCITALOPRAM OXALATE 20 MG TABLET PO SCH ×2 (10:00)
[2023-06-28] MEDS ORDERED: FINASTERIDE 5 MG TABLET (FP) PO SCH ×2 (10:00)
[2023-06-28] MEDS ORDERED: ENOXAPARIN NA (PORCINE) 40 MG/0.4 ML DISP.SYRIN SQ SCH (10:00)
[2023-06-28] MEDS ORDERED: methylPREDNISolone NA SUCC 40 MG/1 ML VIAL IVPUSH SCH ×2 (10:00)
[2023-06-28] MEDS ORDERED: ALBUTEROL SO4 2.5/IPRATROPIUM 0.5 INH SOL 3 ML VIAL.NEB. NEB PRN ×2 (11:13→23:05)
[2023-06-28] MEDS ORDERED: ACETAMINOPHEN 500 MG TABLET (FP) PO PRN ×2 (11:20→23:05)
[2023-06-28] MEDS ORDERED: INSULIN (NOVOLOG) ASPART 100 UNITS/ML 10ML VIAL ONE ×4 (11:33→21:02)
[2023-06-28] MEDS: oxyCODONE HCL 5 MG TABLET PO PRN ×2 (15:03→19:02)
[2023-06-28] MEDS: VITAMIN A 10,000 UNITS (3000 MCG) CAPSULE PO SCH (18:19)
[2023-06-28] MEDS: BUDESONIDE/FORMETEROL FUMARATE 160/4.5 mcg INHALER IH SCH ×2 (19:52→22:57)
[2023-06-28] MEDS: ROSUVASTATIN CA 10 MG TABLET PO SCH (21:22)
[2023-06-29] MEDS ORDERED: INSULIN (NOVOLOG) ASPART 100 UNITS/ML 10ML VIAL ONE ×2 (06:09→21:28)
[2023-06-29] MEDS: GABAPENTIN 300 MG CAPSULE PO SCH ×3 (06:18→21:29)
[2023-06-29] MEDS: INSULIN SLIDING SCALE (NOVOLOG) 1 VIAL SQ SCH ×4 (06:23→21:34)
[2023-06-29] MEDS: oxyCODONE HCL 5 MG TABLET PO PRN ×3 (08:27→21:32)
[2023-06-29] MEDS ORDERED: ESCITALOPRAM OXALATE 10 MG TABLET ONE (09:12)
[2023-06-29] MEDS: VITAMIN A 10,000 UNITS (3000 MCG) CAPSULE PO SCH (09:28)
[2023-06-29] MEDS: PANTOPRAZOLE 40 MG TABLET PO SCH (09:29)
[2023-06-29] MEDS: FINASTERIDE 5 MG TABLET (FP) PO SCH (09:29)
[2023-06-29] MEDS: LOSARTAN POTASSIUM 25 MG TABLET PO SCH (09:29)
[2023-06-29] MEDS: BUDESONIDE/FORMETEROL FUMARATE 160/4.5 mcg INHALER IH SCH ×3 (09:32→22:30)
[2023-06-29 09:53] LABS: BASO % 0.1 % (0-2.0); EOS % 0.1 % (0-4.5); HEMATOCRIT 33.8 % (35.4-49); HEMOGLOBIN 10.7 GM/dL (11.7-16.9); MCH 31.2 pg (25.7-33.7); MCHC 31.8 g/dl (32.0-35.9); MEAN PLT VOLUME 7.7 fl (7.5-11.1); NEUT % 77.8 % (42.8-82.8); PLATELET COUNT 187 10^3/uL (134-434); RBC 3.45 M/mm3 (4.00-5.60); RDW 13.4 % (11.9-15.9); WHITE BLOOD COUNT 9.5 K/mm3 (4.0-10.0)
[2023-06-29] MEDS ORDERED: ESCITALOPRAM OXALATE 20 MG TABLET PO SCH (10:00)
[2023-06-29] MEDS ORDERED: methylPREDNISolone NA SUCC 40 MG/1 ML VIAL IVPUSH SCH ×2 (10:00)
[2023-06-29 10:16] LABS: POTASSIUM 4.1 mmol/L (3.5-5.1)
[2023-06-29] MEDS: ESCITALOPRAM OXALATE 10 MG TABLET PO SCH (10:22)
[2023-06-29 10:40] LABS: CALCIUM 8.7 mg/dL (8.5-10.1)
[2023-06-29 10:41] LABS: ALBUMIN 2.8 g/dl (3.4-5.0); BLOOD UREA NITROGEN 7.5 mg/dL (7-18); MAGNESIUM 1.8 mg/dL (1.8-2.4)
[2023-06-29 10:44] LABS: CREATININE 0.5 mg/dL (0.55-1.3)
[2023-06-29 10:46] LABS: BILIRUBIN,TOTAL 0.8 mg/dL (0.2-1); TOT PROT 5.1 g/dl (6.4-8.2)
[2023-06-29] MEDS: predniSONE 10 MG TABLET (UD) PO SCH (12:22)
[2023-06-29] MEDS: ACETAMINOPHEN 500 MG TABLET (FP) PO SCH ×2 (16:54→21:29)
[2023-06-29] MEDS: RIVAROXABAN 20 MG TABLET PO SCH (17:35)
[2023-06-29] MEDS ORDERED: RIVAROXABAN 20 MG TABLET PO SCH (18:00)
[2023-06-29] MEDS: ROSUVASTATIN CA 10 MG TABLET PO SCH (21:29)
[2023-06-29] MEDS: MUPIROCIN 2% TOPICAL OINTMENT FOR DECOLONIZATION NS SCH (22:00)
[2023-06-29] MEDS: CHLORHEXIDINE GLUCONATE 4% CLEANSER FOR DECOLONIZATION TP SCH (22:00)
[2023-06-30] MEDS: ACETAMINOPHEN 500 MG TABLET (FP) PO SCH ×4 (05:56→21:29)
[2023-06-30] MEDS: GABAPENTIN 300 MG CAPSULE PO SCH ×3 (05:56→21:27)
[2023-06-30] MEDS: INSULIN SLIDING SCALE (NOVOLOG) 1 VIAL SQ SCH ×3 (06:07→15:34)
[2023-06-30] MEDS: oxyCODONE HCL 5 MG TABLET PO PRN ×4 (06:09→23:49)
[2023-06-30 07:25] LABS: BASO % 0.2 % (0-2.0); HEMATOCRIT 31.4 % (35.4-49); HEMOGLOBIN 10.5 GM/dL (11.7-16.9); LYMPH % 17.8 % (8-40); MCHC 33.5 g/dl (32.0-35.9); MEAN CELL VOLUME 95.6 fl (80-96); MEAN PLT VOLUME 7.4 fl (7.5-11.1); MONO % 9.8 % (3.8-10.2); NEUT % 71.2 % (42.8-82.8); PLATELET COUNT 157 10^3/uL (134-434); RBC 3.28 M/mm3 (4.00-5.60); RDW 13.5 % (11.9-15.9); WHITE BLOOD COUNT 8.3 K/mm3 (4.0-10.0)
[2023-06-30 08:36] LABS: POTASSIUM 4.1 mmol/L (3.5-5.1)
[2023-06-30 08:39] LABS: ALBUMIN 2.7 g/dl (3.4-5.0); BLOOD UREA NITROGEN 6.8 mg/dL (7-18)
[2023-06-30 08:40] LABS: MAGNESIUM 1.7 mg/dL (1.8-2.4)
[2023-06-30 08:41] LABS: CALCIUM 8.1 mg/dL (8.5-10.1)
[2023-06-30 08:42] LABS: CREATININE 0.5 mg/dL (0.55-1.3)
[2023-06-30 08:44] LABS: BILIRUBIN,TOTAL 0.6 mg/dL (0.2-1); TOT PROT 5.1 g/dl (6.4-8.2)
[2023-06-30] MEDS: predniSONE 10 MG TABLET (UD) PO SCH ×2 (09:02→09:52)
[2023-06-30] MEDS: FINASTERIDE 5 MG TABLET (FP) PO SCH (09:02)
[2023-06-30] MEDS: PANTOPRAZOLE 40 MG TABLET PO SCH (09:03)
[2023-06-30] MEDS: LOSARTAN POTASSIUM 25 MG TABLET PO SCH (09:03)
[2023-06-30] MEDS: ESCITALOPRAM OXALATE 10 MG TABLET PO SCH (09:03)
[2023-06-30] MEDS: BUDESONIDE/FORMETEROL FUMARATE 160/4.5 mcg INHALER IH SCH (09:03)
[2023-06-30] MEDS: MUPIROCIN 2% TOPICAL OINTMENT FOR DECOLONIZATION NS SCH ×2 (09:04→22:00)
[2023-06-30] MEDS: VITAMIN A 10,000 UNITS (3000 MCG) CAPSULE PO SCH (09:04)
[2023-06-30] MEDS ORDERED: MAGNESIUM SULF 50% (8.12 MEQ/2 ML-1 GM VIAL) IVPB ONE (09:10)
[2023-06-30] MEDS ORDERED: INSULIN (NOVOLOG) ASPART 100 UNITS/ML 10ML VIAL ONE (15:31)
[2023-06-30] MEDS: RIVAROXABAN 20 MG TABLET PO SCH (17:14)
[2023-06-30] MEDS ORDERED: AMIODARONE HCL 200 MG TABLET PO ONE (21:20)
[2023-06-30] MEDS: ROSUVASTATIN CA 10 MG TABLET PO SCH (21:27)
[2023-06-30] MEDS: CHLORHEXIDINE GLUCONATE 4% CLEANSER FOR DECOLONIZATION TP SCH (22:00)
[2023-07-01] MEDS: INSULIN SLIDING SCALE (NOVOLOG) 1 VIAL SQ SCH ×5 (00:56→22:24)
[2023-07-01] MEDS: ACETAMINOPHEN 500 MG TABLET (FP) PO SCH ×4 (01:28→22:09)
[2023-07-01] MEDS: GABAPENTIN 300 MG CAPSULE PO SCH ×3 (06:43→22:08)
[2023-07-01 07:16] LABS: HEMATOCRIT 31.8 % (35.4-49); HEMOGLOBIN 10.3 GM/dL (11.7-16.9); RBC 3.24 M/mm3 (4.00-5.60); WHITE BLOOD COUNT 7.8 K/mm3 (4.0-10.0)
[2023-07-01 07:17] LABS: BASO % 0.4 % (0-2.0); LYMPH % 16.9 % (8-40); MCH 31.8 pg (25.7-33.7); MCHC 32.4 g/dl (32.0-35.9); MEAN PLT VOLUME 7.6 fl (7.5-11.1); MONO % 10.9 % (3.8-10.2); NEUT % 69.8 % (42.8-82.8); PLATELET COUNT 182 10^3/uL (134-434)
[2023-07-01 07:39] LABS: POTASSIUM 3.8 mmol/L (3.5-5.1)
[2023-07-01 07:44] LABS: ALBUMIN 2.6 g/dl (3.4-5.0); CALCIUM 8.1 mg/dL (8.5-10.1)
[2023-07-01 07:47] LABS: CREATININE 0.5 mg/dL (0.55-1.3)
[2023-07-01 07:48] LABS: BILIRUBIN,TOTAL 0.9 mg/dL (0.2-1); TOT PROT 4.9 g/dl (6.4-8.2)
[2023-07-01] MEDS: oxyCODONE HCL 5 MG TABLET PO PRN ×2 (07:50→22:12)
[2023-07-01] MEDS: ESCITALOPRAM OXALATE 10 MG TABLET PO SCH (09:17)
[2023-07-01] MEDS: predniSONE 10 MG TABLET (UD) PO SCH (09:18)
[2023-07-01] MEDS: FINASTERIDE 5 MG TABLET (FP) PO SCH (09:18)
[2023-07-01] MEDS: MUPIROCIN 2% TOPICAL OINTMENT FOR DECOLONIZATION NS SCH ×2 (09:19→22:22)
[2023-07-01] MEDS: BUDESONIDE/FORMETEROL FUMARATE 160/4.5 mcg INHALER IH SCH ×2 (09:22→22:24)
[2023-07-01] MEDS: VITAMIN A 10,000 UNITS (3000 MCG) CAPSULE PO SCH (09:29)
[2023-07-01] MEDS: LOSARTAN POTASSIUM 25 MG TABLET PO SCH (09:29)
[2023-07-01] MEDS: PANTOPRAZOLE 40 MG TABLET PO SCH (09:30)
[2023-07-01 10:02] LABS: MAGNESIUM 1.8 mg/dL (1.8-2.4)
[2023-07-01] MEDS ORDERED: METOPROLOL TARTRATE 5 MG/5 ML VIAL IVPUSH PRN (11:06)
[2023-07-01] MEDS ORDERED: POTASSIUM CHLORIDE TABS 10 MEQ TABLET.ER (FP) PO ONE (11:30)
[2023-07-01] MEDS ORDERED: MAGNESIUM SULFATE IN WATER 2 GM/50 ML IVPB IVPB ONE (11:45)
[2023-07-01] MEDS: predniSONE 5 MG TABLET (UD) PO SCH (12:29)
[2023-07-01] MEDS ORDERED: INSULIN (NOVOLOG) ASPART 100 UNITS/ML 10ML VIAL ONE ×2 (16:58→22:34)
[2023-07-01] MEDS: POLYETHYLENE GLYCOL (HEALTHYLAX) 3350 17 GM PACKET PO SCH (17:00)
[2023-07-01] MEDS: RIVAROXABAN 20 MG TABLET PO SCH (17:05)
[2023-07-01] MEDS: ROSUVASTATIN CA 10 MG TABLET PO SCH (22:10)
[2023-07-01] MEDS: RANOLAZINE E.R. 500 MG TABLET (FP) PO SCH (22:10)
[2023-07-01] MEDS: CHLORHEXIDINE GLUCONATE 4% CLEANSER FOR DECOLONIZATION TP SCH (22:22)
[2023-07-02] MEDS: ACETAMINOPHEN 500 MG TABLET (FP) PO SCH ×3 (05:22→22:03)
[2023-07-02] MEDS: GABAPENTIN 300 MG CAPSULE PO SCH ×3 (05:22→22:03)
[2023-07-02] MEDS: INSULIN SLIDING SCALE (NOVOLOG) 1 VIAL SQ SCH ×4 (06:03→22:28)
[2023-07-02] MEDS: FINASTERIDE 5 MG TABLET (FP) PO SCH (09:58)
[2023-07-02] MEDS: predniSONE 5 MG TABLET (UD) PO SCH (09:58)
[2023-07-02] MEDS: POLYETHYLENE GLYCOL (HEALTHYLAX) 3350 17 GM PACKET PO SCH (09:58)
[2023-07-02] MEDS: ESCITALOPRAM OXALATE 10 MG TABLET PO SCH (09:59)
[2023-07-02] MEDS: FUROSEMIDE 20 MG TABLET (FP) PO SCH (09:59)
[2023-07-02] MEDS: VITAMIN A 10,000 UNITS (3000 MCG) CAPSULE PO SCH (09:59)
[2023-07-02] MEDS: LOSARTAN POTASSIUM 25 MG TABLET PO SCH (10:00)
[2023-07-02] MEDS: RANOLAZINE E.R. 500 MG TABLET (FP) PO SCH ×2 (10:00→22:03)
[2023-07-02] MEDS: MUPIROCIN 2% TOPICAL OINTMENT FOR DECOLONIZATION NS SCH ×2 (10:00→22:08)
[2023-07-02] MEDS: PANTOPRAZOLE 40 MG TABLET PO SCH (10:00)
[2023-07-02] MEDS: BUDESONIDE/FORMETEROL FUMARATE 160/4.5 mcg INHALER IH SCH ×2 (10:03→22:09)
[2023-07-02] MEDS ORDERED: oxyCODONE HCL 5 MG TABLET ONE (10:09)
[2023-07-02] MEDS: oxyCODONE HCL 5 MG TABLET PO PRN ×2 (10:14→23:29)
[2023-07-02 11:58] VITALS: BMI 25.8
[2023-07-02] MEDS ORDERED: INSULIN (NOVOLOG) ASPART 100 UNITS/ML 10ML VIAL ONE ×2 (13:01→18:43)
[2023-07-02] MEDS: RIVAROXABAN 20 MG TABLET PO SCH (17:21)
[2023-07-02] MEDS: ROSUVASTATIN CA 10 MG TABLET PO SCH (22:04)
[2023-07-02] MEDS: CHLORHEXIDINE GLUCONATE 4% CLEANSER FOR DECOLONIZATION TP SCH (22:04)
[2023-07-03] MEDS: ACETAMINOPHEN 500 MG TABLET (FP) PO SCH (06:01)
[2023-07-03] MEDS: GABAPENTIN 300 MG CAPSULE PO SCH ×3 (06:01→21:28)
[2023-07-03] MEDS: INSULIN SLIDING SCALE (NOVOLOG) 1 VIAL SQ SCH ×4 (06:02→21:37)
[2023-07-03] MEDS: POLYETHYLENE GLYCOL (HEALTHYLAX) 3350 17 GM PACKET PO SCH (09:36)
[2023-07-03] MEDS: LOSARTAN POTASSIUM 25 MG TABLET PO SCH (10:16)
[2023-07-03] MEDS: VITAMIN A 10,000 UNITS (3000 MCG) CAPSULE PO SCH (10:16)
[2023-07-03] MEDS: MUPIROCIN 2% TOPICAL OINTMENT FOR DECOLONIZATION NS SCH ×2 (10:16→21:28)
[2023-07-03] MEDS: ESCITALOPRAM OXALATE 10 MG TABLET PO SCH (10:17)
[2023-07-03] MEDS: RANOLAZINE E.R. 500 MG TABLET (FP) PO SCH ×2 (10:17→21:28)
[2023-07-03] MEDS: predniSONE 5 MG TABLET (UD) PO SCH (10:17)
[2023-07-03] MEDS: FUROSEMIDE 20 MG TABLET (FP) PO SCH (10:17)
[2023-07-03] MEDS: FINASTERIDE 5 MG TABLET (FP) PO SCH (10:17)
[2023-07-03] MEDS: PANTOPRAZOLE 40 MG TABLET PO SCH (10:17)
[2023-07-03] MEDS: BUDESONIDE/FORMETEROL FUMARATE 160/4.5 mcg INHALER IH SCH ×2 (10:25→21:29)
[2023-07-03] MEDS: oxyCODONE HCL 5 MG TABLET PO PRN ×2 (10:25→21:37)
[2023-07-03] MEDS ORDERED: ACETAMINOPHEN 500 MG TABLET (FP) PO PRN (11:09)
[2023-07-03] MEDS ORDERED: INSULIN (NOVOLOG) ASPART 100 UNITS/ML 10ML VIAL ONE (17:27)
[2023-07-03] MEDS: RIVAROXABAN 20 MG TABLET PO SCH (17:28)
[2023-07-03 18:26] LABS: URINE APPEARANCE CLEAR; URINE BILIRUBIN NEGATIVE (NEGATIVE); URINE COLOR YELLOW; URINE GLUCOSE (UA) NEGATIVE (NEGATIVE); URINE KETONE NEGATIVE (NEGATIVE); URINE LEUK ESTERASE NEGATIVE (NEGATIVE); URINE NITRITE NEGATIVE (NEGATIVE); URINE PROTEIN NEGATIVE (NEGATIVE)
[2023-07-03] MEDS: ROSUVASTATIN CA 10 MG TABLET PO SCH (21:28)
[2023-07-03] MEDS: CHLORHEXIDINE GLUCONATE 4% CLEANSER FOR DECOLONIZATION TP SCH (21:28)
[2023-07-04] MEDS: INSULIN SLIDING SCALE (NOVOLOG) 1 VIAL SQ SCH ×4 (06:21→21:12)
[2023-07-04] MEDS: GABAPENTIN 300 MG CAPSULE PO SCH ×3 (06:23→21:13)
[2023-07-04] MEDS: POLYETHYLENE GLYCOL (HEALTHYLAX) 3350 17 GM PACKET PO SCH (09:37)
[2023-07-04] MEDS: VITAMIN A 10,000 UNITS (3000 MCG) CAPSULE PO SCH (09:59)
[2023-07-04] MEDS: FUROSEMIDE 20 MG TABLET (FP) PO SCH (09:59)
[2023-07-04] MEDS: FINASTERIDE 5 MG TABLET (FP) PO SCH (09:59)
[2023-07-04] MEDS: LOSARTAN POTASSIUM 25 MG TABLET PO SCH (10:00)
[2023-07-04] MEDS: ESCITALOPRAM OXALATE 10 MG TABLET PO SCH (10:00)
[2023-07-04] MEDS: BUDESONIDE/FORMETEROL FUMARATE 160/4.5 mcg INHALER IH SCH ×2 (10:00→23:58)
[2023-07-04] MEDS: MUPIROCIN 2% TOPICAL OINTMENT FOR DECOLONIZATION NS SCH (10:00)
[2023-07-04] MEDS: PANTOPRAZOLE 40 MG TABLET PO SCH (10:00)
[2023-07-04] MEDS: predniSONE 5 MG TABLET (UD) PO SCH (10:00)
[2023-07-04] MEDS: RANOLAZINE E.R. 500 MG TABLET (FP) PO SCH ×2 (10:00→21:13)
[2023-07-04] MEDS: oxyCODONE HCL 5 MG TABLET PO PRN (10:03)
[2023-07-04] MEDS: RIVAROXABAN 20 MG TABLET PO SCH (17:21)
[2023-07-04] MEDS ORDERED: ALBUTEROL SO4 2.5/IPRATROPIUM 0.5 INH SOL 3 ML VIAL.NEB. NEB PRN (19:27)
[2023-07-04 20:08] VITALS: TEMP 98.2
[2023-07-04] MEDS ORDERED: ROSUVASTATIN CA 10 MG TABLET PO SCH (22:00)
[2023-07-05] MEDS: oxyCODONE HCL 5 MG TABLET PO PRN ×2 (00:04→09:46)
[2023-07-05] MEDS: GABAPENTIN 300 MG CAPSULE PO SCH ×2 (06:19→13:46)
[2023-07-05] MEDS: INSULIN SLIDING SCALE (NOVOLOG) 1 VIAL SQ SCH ×2 (06:19→11:58)
[2023-07-05] MEDS: RANOLAZINE E.R. 500 MG TABLET (FP) PO SCH (09:45)
[2023-07-05] MEDS: predniSONE 5 MG TABLET (UD) PO SCH (09:45)
[2023-07-05] MEDS: FUROSEMIDE 20 MG TABLET (FP) PO SCH (09:46)
[2023-07-05] MEDS: BUDESONIDE/FORMETEROL FUMARATE 160/4.5 mcg INHALER IH SCH (09:47)
[2023-07-05] MEDS: POLYETHYLENE GLYCOL (HEALTHYLAX) 3350 17 GM PACKET PO SCH (09:47)
[2023-07-05] MEDS ORDERED: LOSARTAN POTASSIUM 25 MG TABLET PO SCH (10:00)
[2023-07-05] MEDS ORDERED: FINASTERIDE 5 MG TABLET (FP) PO SCH (10:00)
[2023-07-05] MEDS ORDERED: VITAMIN A 10,000 UNITS (3000 MCG) CAPSULE PO SCH (10:00)
[2023-07-05] MEDS ORDERED: ESCITALOPRAM OXALATE 10 MG TABLET PO SCH (10:00)
[2023-07-05] MEDS ORDERED: PANTOPRAZOLE 40 MG TABLET PO SCH (10:00)
[2023-07-05 15:22] VITALS: PULSE 102
[2023-07-05 17:11] VITALS: BP 137/89; RESP 16
[2023-07-05] MEDS ORDERED: RIVAROXABAN 20 MG TABLET PO SCH (18:00)
== END 2023-07-05 17:12 | disposition home or self-care (01) | DRG 330 ==
LOC: J2C 06-27 04:24 → JICU 06-27 22:38 → J8W 06-28 20:33 → JICU 06-29 18:39 → J2W 07-03 21:13
PROVIDERS: ADMIT Internal Medicine; ATTEND Internal Medicine
PROC: 8E0W4CZ Robotic Assisted Procedure of Trunk Region, Percutaneous Endoscopic Approach (ICD-10-PCS; 2023-06-27)
PROC: 0DTL4ZZ Resection of Transverse Colon, Percutaneous Endoscopic Approach (ICD-10-PCS; principal; 2023-06-27 12:00)
DX: C18.4 Malignant neoplasm of transverse colon (principal); I47.20 Ventricular tachycardia, unspecified; I50.30 Unspecified diastolic (congestive) heart failure; I48.21 Permanent atrial fibrillation; I11.0 Hypertensive heart disease with heart failure; I25.10 Atherosclerotic heart disease of native coronary artery without angina pectoris; J44.9 Chronic obstructive pulmonary disease, unspecified; E11.51 Type 2 diabetes mellitus with diabetic peripheral angiopathy without gangrene; F10.20 Alcohol dependence, uncomplicated; E78.5 Hyperlipidemia, unspecified; K21.9 Gastro-esophageal reflux disease without esophagitis; N40.0 Benign prostatic hyperplasia without lower urinary tract symptoms; F41.8 Other specified anxiety disorders; M54.50 Low back pain, unspecified; M54.2 Cervicalgia; K57.90 Diverticulosis of intestine, part unspecified, without perforation or abscess without bleeding; G89.18 Other acute postprocedural pain; I65.29 Occlusion and stenosis of unspecified carotid artery; Z79.52 Long term (current) use of systemic steroids
CPT/HCPCS: 0241U-QW; 36415; 71045-TC-FY; 71275-TC; 74177-TC; 80048; 80053; 81003; 82550; 82962; 83605; 83735; 84100; 84443; 84484; 85025; 85651; 86140; 86850; 86900; 86901; 87086; 87635; 88309-TC; 88329; 93005; 93010; 93306-TC; 94640; 94760; 94761; 97116-GP; 97162-GP; J1644; Q9967

== ENCOUNTER 2023-07-15 10:09 | Inpatient (IN) | payer OTHER, BC ==
[2023-07-15] MEDS ORDERED: ONDANSETRON 4 MG/2 ML VIAL IVPB ONE (12:05)
[2023-07-15] MEDS ORDERED: ACETAMINOPHEN 1000 MG/100 ML BAG IVPB ONE (12:05)
[2023-07-15] MEDS ORDERED: ACETAMINOPHEN INJECTION 100 ML IVPB ONE (12:31)
[2023-07-15] MEDS ORDERED: ONDANSETRON 4 MG/2 ML VIAL ONE (12:31)
[2023-07-15 12:33] LABS: BASO % 0.3 % (0-2.0); EOS % 0.2 % (0-4.5); HEMATOCRIT 35.3 % (35.4-49); HEMOGLOBIN 11.5 GM/dL (11.7-16.9); LYMPH % 11.9 % (8-40); MCHC 32.5 g/dl (32.0-35.9); MEAN CELL VOLUME 92.4 fl (80-96); MEAN PLT VOLUME 6.8 fl (7.5-11.1); MONO % 12.6 % (3.8-10.2); PLATELET COUNT 306 10^3/uL (134-434); RBC 3.82 M/mm3 (4.00-5.60); RDW 13.4 % (11.9-15.9); VENOUS BASE EXCESS -1.8 mmol/L (-2-2); VENOUS O2 SATURATION 33.8 % (70-80); VENOUS PCO2 52.1 mmHg (38-52); VENOUS PH 7.301 (7.310-7.410); WHITE BLOOD COUNT 12.1 K/mm3 (4.0-10.0)
[2023-07-15 12:40] LABS: INR 3.04 (0.83-1.09); PROTHROMBIN TIME (PATIENT) 34.9 SEC (9.7-13.0)
[2023-07-15 13:00] LABS: POTASSIUM 4.3 mmol/L (3.5-5.1)
[2023-07-15 13:01] LABS: CALCIUM 9.2 mg/dL (8.5-10.1)
[2023-07-15 13:02] LABS: ALBUMIN 3.1 g/dl (3.4-5.0); BLOOD UREA NITROGEN 5.1 mg/dL (7-18)
[2023-07-15 13:05] LABS: CREATININE 0.5 mg/dL (0.55-1.3)
[2023-07-15 13:07] LABS: BILIRUBIN,TOTAL 1.6 mg/dL (0.2-1); TOT PROT 6.2 g/dl (6.4-8.2)
[2023-07-15 13:24] LABS: PH,URINE 6.5 (5.0-8.0); URINE APPEARANCE CLEAR; URINE BILIRUBIN NEGATIVE (NEGATIVE); URINE COLOR YELLOW; URINE GLUCOSE (UA) NEGATIVE (NEGATIVE); URINE KETONE TRACE (NEGATIVE); URINE LEUK ESTERASE NEGATIVE (NEGATIVE); URINE NITRITE NEGATIVE (NEGATIVE); URINE PROTEIN NEGATIVE (NEGATIVE)
[2023-07-15] MEDS ORDERED: NITROGLYCERIN SUBLINGUAL 1/150 0.4 MG TAB SL PRN (14:36)
[2023-07-15] MEDS ORDERED: ALBUTEROL SO4 HFA INHALER IH PRN (14:36)
[2023-07-15] MEDS ORDERED: POLYETHYLENE GLYCOL (HEALTHYLAX) 3350 17 GM PACKET PO PRN (14:36)
[2023-07-15] MEDS ORDERED: CEFEPIME HCL 1 GM VIAL (RESTRICTED TO ID) IVPB ONE (14:39)
[2023-07-15] MEDS ORDERED: VANCOMYCIN 1,000 MG in DEXTROSE 5%-WATER - 250 ML IVPB ONE (14:40)
[2023-07-15] MEDS ORDERED: VANCOMYCIN 1 GRAM (PRE-DOCKED) 1,000 MG/250 ML BAG IVPB ONE (14:51)
[2023-07-15] MEDS ORDERED: CEFEPIME 1 GM/100 ML BAG IVPB ONE (14:52)
[2023-07-15] MEDS: SODIUM CHLORIDE 1,000 ML IV SCH (15:03)
[2023-07-15] MEDS ORDERED: ONDANSETRON 4 MG/2 ML VIAL IVPB PRN (15:18)
[2023-07-15] MEDS: methylPREDNISolone NA SUCC 40 MG/1 ML VIAL IVPUSH SCH (18:21)
[2023-07-15] MEDS: CEFTRIAXONE 1 GM in DEXTROSE 5%-WATER - 50 ML IVPB SCH (18:21)
[2023-07-15] MEDS: AZITHROMYCIN IVPB 500 MG/250 ML BAG IVPB SCH (19:37)
[2023-07-15] MEDS: ALBUTEROL SO4 0.083% IH SOL 2.5 MG/3 ML VIAL.NEB. NEB SCH (20:18)
[2023-07-15] MEDS: oxyCODONE HCL 5 MG TABLET PO PRN (20:58)
[2023-07-15] MEDS: ROSUVASTATIN CA 10 MG TABLET PO SCH (21:14)
[2023-07-15] MEDS: guaiFENesin 200 MG/10 ML 10 ML UNIT-DOSE CUPS PO PRN (21:14)
[2023-07-15] MEDS: GABAPENTIN 300 MG CAPSULE PO SCH (21:14)
[2023-07-16] MEDS: methylPREDNISolone NA SUCC 40 MG/1 ML VIAL IVPUSH SCH ×2 (05:04→17:02)
[2023-07-16] MEDS: GABAPENTIN 300 MG CAPSULE PO SCH ×3 (06:08→21:03)
[2023-07-16] MEDS: guaiFENesin 200 MG/10 ML 10 ML UNIT-DOSE CUPS PO PRN (06:09)
[2023-07-16] MEDS: ALBUTEROL SO4 0.083% IH SOL 2.5 MG/3 ML VIAL.NEB. NEB SCH ×4 (08:49→21:30)
[2023-07-16] MEDS: TAMSULOSIN HCL 0.4 MG CAP PO SCH (08:59)
[2023-07-16] MEDS: CEFTRIAXONE 1 GM in DEXTROSE 5%-WATER - 50 ML IVPB SCH (09:12)
[2023-07-16] MEDS: ESCITALOPRAM OXALATE 10 MG TABLET PO SCH (09:14)
[2023-07-16] MEDS: PANTOPRAZOLE 40 MG TABLET PO SCH (09:15)
[2023-07-16] MEDS: FINASTERIDE 5 MG TABLET (FP) PO SCH (09:15)
[2023-07-16] MEDS: FERROUS SO4 325 MG TABLET (FP) PO SCH (09:15)
[2023-07-16] MEDS: MAGNESIUM OXIDE 400 MG TABLET (FP) PO SCH (09:15)
[2023-07-16] MEDS: LOSARTAN POTASSIUM 25 MG TABLET PO SCH (09:15)
[2023-07-16] MEDS: FUROSEMIDE 20 MG TABLET (FP) PO SCH (09:15)
[2023-07-16] MEDS: LORATADINE 10 MG TABLET PO SCH (09:15)
[2023-07-16] MEDS: MONTELUKAST NA 10 MG TABLET PO SCH (09:15)
[2023-07-16] MEDS: CHOLECALCIFEROL (VIT D3) 1,000 UNIT (25 MCG) TABLET PO SCH (09:15)
[2023-07-16] MEDS: oxyCODONE HCL 5 MG TABLET PO PRN ×2 (09:16→17:07)
[2023-07-16] MEDS: AZITHROMYCIN IVPB 500 MG/250 ML BAG IVPB SCH (09:17)
[2023-07-16 09:28] LABS: BASO % 0.1 % (0-2.0); HEMATOCRIT 31.9 % (35.4-49); HEMOGLOBIN 10.7 GM/dL (11.7-16.9); LYMPH % 6.6 % (8-40); MCH 31.2 pg (25.7-33.7); MCHC 33.6 g/dl (32.0-35.9); MONO % 2.3 % (3.8-10.2); PLATELET COUNT 291 10^3/uL (134-434); RBC 3.43 M/mm3 (4.00-5.60); RDW 13.2 % (11.9-15.9); WHITE BLOOD COUNT 8.1 K/mm3 (4.0-10.0)
[2023-07-16 09:53] LABS: ALBUMIN 2.7 g/dl (3.4-5.0); BLOOD UREA NITROGEN 6.2 mg/dL (7-18); CALCIUM 8.7 mg/dL (8.5-10.1)
[2023-07-16 09:56] LABS: CREATININE 0.4 mg/dL (0.55-1.3)
[2023-07-16 09:58] LABS: BILIRUBIN,TOTAL 0.8 mg/dL (0.2-1); TOT PROT 5.7 g/dl (6.4-8.2)
[2023-07-16 10:09] LABS: ANISOCYTOSIS 2+; MACROCYTOSIS 0; OVALOCYTE 1+
[2023-07-16] MEDS: FLUTICASONE PROP 0.05% 16 GM NASAL SPRAY NS SCH (11:22)
[2023-07-16] MEDS: FLUTICASONE/UMECLIDIN/VILANTER(200-62.5-25 TRELEGY ELLIPTA) INAHLER IH SCH (12:33)
[2023-07-16] MEDS: RIVAROXABAN 20 MG TABLET PO SCH (17:02)
[2023-07-16] MEDS: SODIUM CHLORIDE 1,000 ML IV SCH (17:02)
[2023-07-16] MEDS: ROSUVASTATIN CA 10 MG TABLET PO SCH (21:03)
[2023-07-16] MEDS: ACETAMINOPHEN 325 MG TABLET (FP) PO PRN (21:05)
[2023-07-17] MEDS: oxyCODONE HCL 5 MG TABLET PO PRN ×3 (00:07→21:35)
[2023-07-17] MEDS: methylPREDNISolone NA SUCC 40 MG/1 ML VIAL IVPUSH SCH ×3 (05:08→21:37)
[2023-07-17] MEDS: GABAPENTIN 300 MG CAPSULE PO SCH ×3 (05:51→21:36)
[2023-07-17] MEDS: ALBUTEROL SO4 0.083% IH SOL 2.5 MG/3 ML VIAL.NEB. NEB SCH ×3 (08:05→20:45)
[2023-07-17] MEDS: TAMSULOSIN HCL 0.4 MG CAP PO SCH (10:00)
[2023-07-17] MEDS: MONTELUKAST NA 10 MG TABLET PO SCH (10:00)
[2023-07-17] MEDS: FINASTERIDE 5 MG TABLET (FP) PO SCH (10:01)
[2023-07-17] MEDS: ESCITALOPRAM OXALATE 10 MG TABLET PO SCH (10:01)
[2023-07-17] MEDS: LORATADINE 10 MG TABLET PO SCH (10:02)
[2023-07-17] MEDS: FUROSEMIDE 20 MG TABLET (FP) PO SCH (10:02)
[2023-07-17] MEDS: CHOLECALCIFEROL (VIT D3) 1,000 UNIT (25 MCG) TABLET PO SCH (10:02)
[2023-07-17] MEDS: FERROUS SO4 325 MG TABLET (FP) PO SCH (10:02)
[2023-07-17] MEDS: PANTOPRAZOLE 40 MG TABLET PO SCH (10:02)
[2023-07-17] MEDS: LOSARTAN POTASSIUM 25 MG TABLET PO SCH (10:02)
[2023-07-17] MEDS: MAGNESIUM OXIDE 400 MG TABLET (FP) PO SCH (10:02)
[2023-07-17] MEDS: CEFTRIAXONE 1 GM in DEXTROSE 5%-WATER - 50 ML IVPB SCH (10:02)
[2023-07-17] MEDS: FLUTICASONE PROP 0.05% 16 GM NASAL SPRAY NS SCH (10:14)
[2023-07-17] MEDS: FLUTICASONE/UMECLIDIN/VILANTER(200-62.5-25 TRELEGY ELLIPTA) INAHLER IH SCH (10:14)
[2023-07-17] MEDS: AZITHROMYCIN IVPB 500 MG/250 ML BAG IVPB SCH (10:15)
[2023-07-17 15:53] VITALS: BMI 21.4
[2023-07-17] MEDS ORDERED: SODIUM PHOSPHATE/NA BIPHOS 133 ML ENEMA RC ONE (17:09)
[2023-07-17] MEDS: RIVAROXABAN 20 MG TABLET PO SCH (17:22)
[2023-07-17] MEDS: SODIUM CHLORIDE 1,000 ML IV SCH (17:22)
[2023-07-17] MEDS: ROSUVASTATIN CA 10 MG TABLET PO SCH (21:36)
[2023-07-18] MEDS: ACETAMINOPHEN 325 MG TABLET (FP) PO PRN ×2 (01:55→11:00)
[2023-07-18] MEDS: GABAPENTIN 300 MG CAPSULE PO SCH ×3 (05:50→21:08)
[2023-07-18] MEDS: ALBUTEROL SO4 0.083% IH SOL 2.5 MG/3 ML VIAL.NEB. NEB SCH ×4 (08:44→20:03)
[2023-07-18] MEDS: TAMSULOSIN HCL 0.4 MG CAP PO SCH (08:46)
[2023-07-18] MEDS: CEFTRIAXONE 1 GM in DEXTROSE 5%-WATER - 50 ML IVPB SCH (09:26)
[2023-07-18] MEDS: CHOLECALCIFEROL (VIT D3) 1,000 UNIT (25 MCG) TABLET PO SCH (09:28)
[2023-07-18] MEDS: LOSARTAN POTASSIUM 25 MG TABLET PO SCH (09:29)
[2023-07-18] MEDS: MONTELUKAST NA 10 MG TABLET PO SCH (09:29)
[2023-07-18] MEDS: FUROSEMIDE 20 MG TABLET (FP) PO SCH (09:29)
[2023-07-18] MEDS: PANTOPRAZOLE 40 MG TABLET PO SCH (09:29)
[2023-07-18] MEDS: FERROUS SO4 325 MG TABLET (FP) PO SCH (09:29)
[2023-07-18] MEDS: LORATADINE 10 MG TABLET PO SCH (09:29)
[2023-07-18] MEDS: MAGNESIUM OXIDE 400 MG TABLET (FP) PO SCH (09:29)
[2023-07-18] MEDS: ESCITALOPRAM OXALATE 10 MG TABLET PO SCH (09:29)
[2023-07-18] MEDS: FINASTERIDE 5 MG TABLET (FP) PO SCH (09:29)
[2023-07-18] MEDS: methylPREDNISolone NA SUCC 40 MG/1 ML VIAL IVPUSH SCH ×2 (09:30→21:08)
[2023-07-18] MEDS: oxyCODONE HCL 5 MG TABLET PO PRN ×2 (09:39→21:08)
[2023-07-18] MEDS: FLUTICASONE PROP 0.05% 16 GM NASAL SPRAY NS SCH (09:41)
[2023-07-18] MEDS: FLUTICASONE/UMECLIDIN/VILANTER(200-62.5-25 TRELEGY ELLIPTA) INAHLER IH SCH (09:41)
[2023-07-18] MEDS: AZITHROMYCIN IVPB 500 MG/250 ML BAG IVPB SCH (09:43)
[2023-07-18 09:46] LABS: BASO % 0.1 % (0-2.0); HEMATOCRIT 31.3 % (35.4-49); HEMOGLOBIN 10.4 GM/dL (11.7-16.9); LYMPH % 5.4 % (8-40); MCH 30.6 pg (25.7-33.7); MCHC 33.3 g/dl (32.0-35.9); MEAN CELL VOLUME 91.8 fl (80-96); MEAN PLT VOLUME 7.3 fl (7.5-11.1); NEUT % 89.5 % (42.8-82.8); PLATELET COUNT 326 10^3/uL (134-434); RBC 3.41 M/mm3 (4.00-5.60); RDW 13.2 % (11.9-15.9); WHITE BLOOD COUNT 10.8 K/mm3 (4.0-10.0)
[2023-07-18 09:57] LABS: POTASSIUM 3.7 mmol/L (3.5-5.1)
[2023-07-18 10:04] LABS: BLOOD UREA NITROGEN 11.8 mg/dL (7-18); CALCIUM 8.7 mg/dL (8.5-10.1)
[2023-07-18 10:05] LABS: ALBUMIN 2.8 g/dl (3.4-5.0)
[2023-07-18 10:08] LABS: CREATININE 0.8 mg/dL (0.55-1.3)
[2023-07-18 10:09] LABS: BILIRUBIN,TOTAL 0.5 mg/dL (0.2-1); TOT PROT 5.8 g/dl (6.4-8.2)
[2023-07-18] MEDS: INSULIN SLIDING SCALE (NOVOLOG) 1 VIAL SQ SCH ×3 (11:59→21:18)
[2023-07-18] MEDS: SODIUM CHLORIDE 1,000 ML IV SCH (16:50)
[2023-07-18] MEDS: RIVAROXABAN 20 MG TABLET PO SCH (17:05)
[2023-07-18] MEDS: ROSUVASTATIN CA 10 MG TABLET PO SCH (21:09)
[2023-07-19] MEDS: GABAPENTIN 300 MG CAPSULE PO SCH ×3 (05:25→21:02)
[2023-07-19] MEDS: INSULIN SLIDING SCALE (NOVOLOG) 1 VIAL SQ SCH ×4 (06:03→21:08)
[2023-07-19] MEDS: ALBUTEROL SO4 0.083% IH SOL 2.5 MG/3 ML VIAL.NEB. NEB SCH ×4 (07:26→20:14)
[2023-07-19] MEDS: TAMSULOSIN HCL 0.4 MG CAP PO SCH (08:09)
[2023-07-19] MEDS: LORATADINE 10 MG TABLET PO SCH (09:34)
[2023-07-19] MEDS: MONTELUKAST NA 10 MG TABLET PO SCH (09:34)
[2023-07-19] MEDS: CHOLECALCIFEROL (VIT D3) 1,000 UNIT (25 MCG) TABLET PO SCH (09:35)
[2023-07-19] MEDS: PANTOPRAZOLE 40 MG TABLET PO SCH (09:35)
[2023-07-19] MEDS: FUROSEMIDE 20 MG TABLET (FP) PO SCH (09:36)
[2023-07-19] MEDS: MAGNESIUM OXIDE 400 MG TABLET (FP) PO SCH (09:36)
[2023-07-19] MEDS: FINASTERIDE 5 MG TABLET (FP) PO SCH (09:36)
[2023-07-19] MEDS: FERROUS SO4 325 MG TABLET (FP) PO SCH (09:36)
[2023-07-19] MEDS: ESCITALOPRAM OXALATE 10 MG TABLET PO SCH (09:36)
[2023-07-19] MEDS: AZITHROMYCIN IVPB 500 MG/250 ML BAG IVPB SCH (09:37)
[2023-07-19] MEDS: FLUTICASONE PROP 0.05% 16 GM NASAL SPRAY NS SCH (09:45)
[2023-07-19] MEDS: FLUTICASONE/UMECLIDIN/VILANTER(200-62.5-25 TRELEGY ELLIPTA) INAHLER IH SCH (09:46)
[2023-07-19] MEDS ORDERED: methylPREDNISolone NA SUCC 40 MG/1 ML VIAL IVPUSH SCH (10:00)
[2023-07-19] MEDS: oxyCODONE HCL 5 MG TABLET PO PRN ×2 (10:02→20:58)
[2023-07-19] MEDS: LOSARTAN POTASSIUM 25 MG TABLET PO SCH (10:05)
[2023-07-19] MEDS: CEFTRIAXONE 1 GM in DEXTROSE 5%-WATER - 50 ML IVPB SCH (12:13)
[2023-07-19] MEDS: RIVAROXABAN 20 MG TABLET PO SCH (17:34)
[2023-07-19] MEDS ORDERED: dilTIAZem HCL 30 MG TABLET PO ONE (17:41)
[2023-07-19] MEDS: dilTIAZem HCL 30 MG TABLET PO SCH (21:02)
[2023-07-19] MEDS: methylPREDNISolone NA SUCC 40 MG/1 ML VIAL IVPUSH SCH (21:02)
[2023-07-19] MEDS: ROSUVASTATIN CA 10 MG TABLET PO SCH (21:02)
[2023-07-20] MEDS: GABAPENTIN 300 MG CAPSULE PO SCH ×3 (05:11→22:06)
[2023-07-20] MEDS: dilTIAZem HCL 30 MG TABLET PO SCH ×3 (05:12→22:04)
[2023-07-20] MEDS: INSULIN SLIDING SCALE (NOVOLOG) 1 VIAL SQ SCH ×4 (06:14→22:07)
[2023-07-20] MEDS: ALBUTEROL SO4 0.083% IH SOL 2.5 MG/3 ML VIAL.NEB. NEB SCH ×4 (07:40→20:34)
[2023-07-20] MEDS: oxyCODONE HCL 5 MG TABLET PO PRN ×2 (09:32→22:04)
[2023-07-20] MEDS: TAMSULOSIN HCL 0.4 MG CAP PO SCH (09:34)
[2023-07-20] MEDS: PANTOPRAZOLE 40 MG TABLET PO SCH (09:34)
[2023-07-20] MEDS: MONTELUKAST NA 10 MG TABLET PO SCH (09:34)
[2023-07-20] MEDS: FUROSEMIDE 20 MG TABLET (FP) PO SCH (09:34)
[2023-07-20] MEDS: LOSARTAN POTASSIUM 25 MG TABLET PO SCH (09:34)
[2023-07-20] MEDS: CHOLECALCIFEROL (VIT D3) 1,000 UNIT (25 MCG) TABLET PO SCH (09:34)
[2023-07-20] MEDS: MAGNESIUM OXIDE 400 MG TABLET (FP) PO SCH (09:34)
[2023-07-20] MEDS: FERROUS SO4 325 MG TABLET (FP) PO SCH (09:34)
[2023-07-20] MEDS: ESCITALOPRAM OXALATE 10 MG TABLET PO SCH (09:35)
[2023-07-20] MEDS: LORATADINE 10 MG TABLET PO SCH (09:35)
[2023-07-20] MEDS: methylPREDNISolone NA SUCC 40 MG/1 ML VIAL IVPUSH SCH (09:35)
[2023-07-20] MEDS: CEFTRIAXONE 1 GM in DEXTROSE 5%-WATER - 50 ML IVPB SCH (09:35)
[2023-07-20] MEDS: FINASTERIDE 5 MG TABLET (FP) PO SCH (09:49)
[2023-07-20] MEDS: ACETAMINOPHEN 325 MG TABLET (FP) PO PRN ×2 (09:50→16:04)
[2023-07-20] MEDS: FLUTICASONE/UMECLIDIN/VILANTER(200-62.5-25 TRELEGY ELLIPTA) INAHLER IH SCH (10:36)
[2023-07-20] MEDS: FLUTICASONE PROP 0.05% 16 GM NASAL SPRAY NS SCH (10:37)
[2023-07-20] MEDS: predniSONE 20 MG TABLET (UD) PO SCH (13:58)
[2023-07-20] MEDS: AZITHROMYCIN IVPB 500 MG/250 ML BAG IVPB SCH (14:42)
[2023-07-20] MEDS: AZITHROMYCIN 250 MG TABLET PO SCH (16:05)
[2023-07-20] MEDS: RIVAROXABAN 20 MG TABLET PO SCH (17:32)
[2023-07-20 18:31] VITALS: RESP 18
[2023-07-20] MEDS: ROSUVASTATIN CA 10 MG TABLET PO SCH (22:06)
[2023-07-21] MEDS: GABAPENTIN 300 MG CAPSULE PO SCH ×2 (05:56→13:46)
[2023-07-21] MEDS: dilTIAZem HCL 30 MG TABLET PO SCH (05:56)
[2023-07-21] MEDS: INSULIN SLIDING SCALE (NOVOLOG) 1 VIAL SQ SCH ×3 (06:00→16:18)
[2023-07-21] MEDS: ALBUTEROL SO4 0.083% IH SOL 2.5 MG/3 ML VIAL.NEB. NEB SCH ×3 (08:26→15:25)
[2023-07-21] MEDS: predniSONE 20 MG TABLET (UD) PO SCH (09:42)
[2023-07-21] MEDS: PANTOPRAZOLE 40 MG TABLET PO SCH (09:42)
[2023-07-21] MEDS: MONTELUKAST NA 10 MG TABLET PO SCH (09:42)
[2023-07-21] MEDS: CHOLECALCIFEROL (VIT D3) 1,000 UNIT (25 MCG) TABLET PO SCH (09:42)
[2023-07-21] MEDS: ESCITALOPRAM OXALATE 10 MG TABLET PO SCH (09:42)
[2023-07-21] MEDS: MAGNESIUM OXIDE 400 MG TABLET (FP) PO SCH (09:42)
[2023-07-21] MEDS: FUROSEMIDE 20 MG TABLET (FP) PO SCH (09:42)
[2023-07-21] MEDS: FERROUS SO4 325 MG TABLET (FP) PO SCH (09:42)
[2023-07-21] MEDS: AZITHROMYCIN 250 MG TABLET PO SCH (09:42)
[2023-07-21] MEDS: LOSARTAN POTASSIUM 25 MG TABLET PO SCH (09:42)
[2023-07-21] MEDS: TAMSULOSIN HCL 0.4 MG CAP PO SCH (09:42)
[2023-07-21] MEDS: LORATADINE 10 MG TABLET PO SCH (09:43)
[2023-07-21] MEDS: FINASTERIDE 5 MG TABLET (FP) PO SCH (09:43)
[2023-07-21] MEDS: FLUTICASONE/UMECLIDIN/VILANTER(200-62.5-25 TRELEGY ELLIPTA) INAHLER IH SCH (09:55)
[2023-07-21] MEDS: FLUTICASONE PROP 0.05% 16 GM NASAL SPRAY NS SCH (09:55)
[2023-07-21] MEDS: oxyCODONE HCL 5 MG TABLET PO PRN ×2 (10:20→17:13)
[2023-07-21 15:38] VITALS: BP 111/87; PULSE 128; TEMP 97
[2023-07-21] MEDS: RIVAROXABAN 20 MG TABLET PO SCH (17:14)
== END 2023-07-21 17:36 | DRG 190 ==
LOC: JER 10:09 → JERBED 14:42 → J5S 17:10
PROVIDERS: ADMIT Internal Medicine; ATTEND Internal Medicine
DX: J44.0 Chronic obstructive pulmonary disease with (acute) lower respiratory infection (principal); J18.9 Pneumonia, unspecified organism; J98.11 Atelectasis; J44.1 Chronic obstructive pulmonary disease with (acute) exacerbation; F10.21 Alcohol dependence, in remission; I10 Essential (primary) hypertension; E11.51 Type 2 diabetes mellitus with diabetic peripheral angiopathy without gangrene; I48.0 Paroxysmal atrial fibrillation; D12.6 Benign neoplasm of colon, unspecified; K21.9 Gastro-esophageal reflux disease without esophagitis; E78.5 Hyperlipidemia, unspecified
CPT/HCPCS: 0241U-QW; 36415; 71045-TC-FY; 71046-TC-FY; 74177-TC; 80053; 81003; 82272; 82803; 82962; 84484; 85025; 85610; 86850; 86900; 86901; 87040; 87070; 87205; 87635; 87899; 93005; 93010; 94010; 94640; 94761; 97116-GP; 97161-GP; 99285-25

== ENCOUNTER 2023-10-21 18:40 | Inpatient (IN) | payer OTHER, BC ==
[2023-10-21] MEDS ORDERED: HALOPERIDOL LACTATE 5 MG/ML ONE ×2 (19:41→21:52)
[2023-10-21 21:28] LABS: VENOUS BASE EXCESS -4.2 mmol/L (-2-2); VENOUS O2 SATURATION 66.9 % (70-80); VENOUS PH 7.301 (7.310-7.410)
[2023-10-21 21:37] LABS: BASO % 0.2 % (0-2.0); EOS % 1.5 % (0-4.5); HEMATOCRIT 34.3 % (35.4-49); HEMOGLOBIN 11.3 GM/dL (11.7-16.9); LYMPH % 30.4 % (8-40); MCH 28.8 pg (25.7-33.7); MCHC 32.9 g/dl (32.0-35.9); MEAN CELL VOLUME 87.6 fl (80-96); MEAN PLT VOLUME 7.1 fl (7.5-11.1); MONO % 6.5 % (3.8-10.2); NEUT % 61.4 % (42.8-82.8); PLATELET COUNT 153 10^3/uL (134-434); RBC 3.91 M/mm3 (4.00-5.60); RDW 15.8 % (11.9-15.9); WHITE BLOOD COUNT 5.9 K/mm3 (4.0-10.0)
[2023-10-21 21:44] LABS: INR 1.43 (0.83-1.09); PROTHROMBIN TIME (PATIENT) 16.5 SEC (9.7-13.0)
[2023-10-21 21:47] LABS: ACTIVATED PTT 30.4 SECONDS (25.2-36.5)
[2023-10-21 21:52] LABS: LACTIC ACID 5.2 mmol/L (0.4-2.0)
[2023-10-21] MEDS: HALOPERIDOL LACTATE 5 MG/ML IM ONE (21:59)
[2023-10-21 22:01] LABS: ALBUMIN 3.6 g/dl (3.4-5.0); BLOOD UREA NITROGEN 4.6 mg/dL (7-18); CALCIUM 8.9 mg/dL (8.5-10.1)
[2023-10-21 22:04] LABS: CREATININE 0.4 mg/dL (0.55-1.3)
[2023-10-21 22:06] LABS: BILIRUBIN,TOTAL 0.5 mg/dL (0.2-1)
[2023-10-21] MEDS: SODIUM CHLORIDE 0.9% 500 ML INFUS.BAG IV ONE (22:46)
[2023-10-21] MEDS: FOLIC ACID INJECTION - 1 MG, THIAMINE HCL 100 MG, MULTIVIT INJECTION ADULT 10 ML in SOD... IVPB ONE (22:46)
[2023-10-21] MEDS: LACTATED RINGERS SOLUTION 1000 ML INFUS.BAG IV ONE (22:47)
[2023-10-22 01:26] LABS: PH,URINE 6.5 (5.0-8.0); URINE APPEARANCE CLEAR; URINE BILIRUBIN NEGATIVE (NEGATIVE); URINE COLOR YELLOW; URINE GLUCOSE (UA) NEGATIVE (NEGATIVE); URINE KETONE NEGATIVE (NEGATIVE); URINE LEUK ESTERASE NEGATIVE (NEGATIVE); URINE NITRITE NEGATIVE (NEGATIVE); URINE PROTEIN NEGATIVE (NEGATIVE)
[2023-10-22 07:26] LABS: LACTIC ACID 3.6 mmol/L (0.4-2.0)
[2023-10-22] MEDS ORDERED: guaiFENesin 200 MG/10 ML 10 ML UNIT-DOSE CUPS PO PRN (08:27)
[2023-10-22] MEDS ORDERED: NITROGLYCERIN SUBLINGUAL 1/150 0.4 MG TAB SL PRN (08:27)
[2023-10-22] MEDS ORDERED: ALBUTEROL SO4 0.083% IH SOL 2.5 MG/3 ML VIAL.NEB. NEB PRN (08:27)
[2023-10-22] MEDS ORDERED: ALBUTEROL SO4 HFA INHALER IH PRN (08:27)
[2023-10-22] MEDS ORDERED: POLYETHYLENE GLYCOL (HEALTHYLAX) 3350 17 GM PACKET ONE (09:56)
[2023-10-22] MEDS ORDERED: MAGNESIUM OXIDE 400 MG TABLET (FP) ONE (09:57)
[2023-10-22] MEDS ORDERED: PANTOPRAZOLE 40 MG TABLET PO ONE (09:57)
[2023-10-22] MEDS ORDERED: LOSARTAN POTASSIUM 50 MG TABLET ONE (09:57)
[2023-10-22] MEDS ORDERED: metFORMIN HCL 500 MG TABLET (FP) ONE ×2 (09:57→20:33)
[2023-10-22] MEDS ORDERED: MONTELUKAST NA 10 MG TABLET ONE (09:57)
[2023-10-22] MEDS ORDERED: TAMSULOSIN HCL 0.4 MG CAP ONE (09:58)
[2023-10-22] MEDS ORDERED: ESCITALOPRAM OXALATE 10 MG TABLET ONE (09:58)
[2023-10-22] MEDS ORDERED: FERROUS SO4 325 MG TABLET (FP) ONE (09:58)
[2023-10-22] MEDS ORDERED: FUROSEMIDE 20 MG TABLET (FP) ONE (09:58)
[2023-10-22] MEDS: FERROUS SO4 325 MG TABLET (FP) PO SCH (10:13)
[2023-10-22] MEDS: LOSARTAN POTASSIUM 50 MG TABLET PO SCH (10:13)
[2023-10-22] MEDS: TAMSULOSIN HCL 0.4 MG CAP PO SCH (10:13)
[2023-10-22] MEDS: metFORMIN HCL 500 MG TABLET (FP) PO SCH (10:13)
[2023-10-22] MEDS: MAGNESIUM OXIDE 400 MG TABLET (FP) PO SCH (10:13)
[2023-10-22] MEDS: POLYETHYLENE GLYCOL (HEALTHYLAX) 3350 17 GM PACKET PO SCH (10:13)
[2023-10-22] MEDS: predniSONE 5 MG TABLET (UD) PO SCH (10:13)
[2023-10-22] MEDS: ESCITALOPRAM OXALATE 10 MG TABLET PO SCH (10:13)
[2023-10-22] MEDS: PANTOPRAZOLE 40 MG TABLET PO SCH (10:13)
[2023-10-22] MEDS: MONTELUKAST NA 10 MG TABLET PO SCH (10:13)
[2023-10-22] MEDS: FUROSEMIDE 20 MG TABLET (FP) PO SCH (10:13)
[2023-10-22] MEDS: FINASTERIDE 5 MG TABLET (FP) PO SCH (13:05)
[2023-10-22] MEDS: FLUTICASONE/UMECLIDIN/VILANTER(200-62.5-25 TRELEGY ELLIPTA) INAHLER IH SCH (13:05)
[2023-10-22] MEDS: RIVAROXABAN 20 MG TABLET PO SCH ×2 (18:44→18:51)
[2023-10-22] MEDS ORDERED: GABAPENTIN 300 MG CAPSULE ONE ×2 (18:47→20:34)
[2023-10-22] MEDS ORDERED: ALBUTEROL SO4 0.083% IH SOL 2.5 MG/3 ML VIAL.NEB. NEB ONE ×2 (18:47→23:32)
[2023-10-22] MEDS: GABAPENTIN 300 MG CAPSULE PO SCH (18:51)
[2023-10-22] MEDS: ALBUTEROL SO4 0.083% IH SOL 2.5 MG/3 ML VIAL.NEB. NEB SCH (18:51)
[2023-10-22] MEDS ORDERED: ROSUVASTATIN CA 5 MG TABLET ONE (20:33)
[2023-10-22] MEDS ORDERED: oxyCODONE HCL 5 MG TABLET ONE (20:34)
[2023-10-22] MEDS: oxyCODONE HCL 5 MG TABLET PO PRN (20:39)
[2023-10-22] MEDS: ROSUVASTATIN CA 10 MG TABLET PO SCH (21:20)
[2023-10-23] MEDS ORDERED: GABAPENTIN 300 MG CAPSULE ONE (05:54)
[2023-10-23] MEDS ORDERED: oxyCODONE HCL 5 MG TABLET ONE ×2 (05:54→14:44)
[2023-10-23] MEDS ORDERED: ALBUTEROL SO4 0.083% IH SOL 2.5 MG/3 ML VIAL.NEB. NEB ONE (09:04)
[2023-10-23] MEDS ORDERED: MAGNESIUM OXIDE 400 MG TABLET (FP) ONE (10:25)
[2023-10-23] MEDS ORDERED: ALBUTEROL SO4 0.5 % INH SOLN 2.5 MG/0.5 ML VIAL.NEB. NEB ONE (14:43)
[2023-10-23 19:54] VITALS: BMI 23.3
[2023-10-24 08:35] LABS: BASO % 0.4 % (0-2.0); EOS % 2.2 % (0-4.5); HEMATOCRIT 33.8 % (35.4-49); HEMOGLOBIN 11.3 GM/dL (11.7-16.9); MCH 29.1 pg (25.7-33.7); MCHC 33.3 g/dl (32.0-35.9); MEAN CELL VOLUME 87.4 fl (80-96); MEAN PLT VOLUME 7.2 fl (7.5-11.1); MONO % 10.5 % (3.8-10.2); NEUT % 59.9 % (42.8-82.8); PLATELET COUNT 142 10^3/uL (134-434); RBC 3.87 M/mm3 (4.00-5.60); RDW 14.9 % (11.9-15.9); WHITE BLOOD COUNT 6.2 K/mm3 (4.0-10.0)
[2023-10-24 08:52] LABS: POTASSIUM 3.4 mmol/L (3.5-5.1)
[2023-10-24 08:54] LABS: CALCIUM 8.7 mg/dL (8.5-10.1)
[2023-10-24 08:55] LABS: ALBUMIN 3.2 g/dl (3.4-5.0); BLOOD UREA NITROGEN 5.6 mg/dL (7-18)
[2023-10-24 08:58] LABS: CREATININE 0.4 mg/dL (0.55-1.3)
[2023-10-24 08:59] LABS: BILIRUBIN,TOTAL 1.3 mg/dL (0.2-1)
[2023-10-24 09:00] LABS: TOT PROT 5.4 g/dl (6.4-8.2)
[2023-10-24] MEDS: chlordiazePOXIDE HCL 10 MG CAPSULE PO SCH (21:19)
[2023-10-24] MEDS: THIAMINE HCL 200 MG/2 ML VIAL IVPB SCH (21:20)
[2023-10-24] MEDS: MONTELUKAST NA 10 MG TABLET PO SCH (21:20)
[2023-10-24] MEDS: oxyCODONE HCL 5 MG TABLET PO PRN (22:31)
[2023-10-25] MEDS: CYANOCOBALAMIN (VITAMIN B-12) 1000 MCG/1 ML VIAL IM SCH (15:31)
[2023-10-26] MEDS: FAMOTIDINE 20 MG TABLET PO SCH (09:34)
[2023-10-27 06:30] VITALS: RESP 18
[2023-10-27] MEDS: ACETAMINOPHEN 325 MG TABLET (FP) PO PRN (09:46)
[2023-10-27 18:34] VITALS: BP 115/55; PULSE 78; TEMP 98.1
== END 2023-10-27 19:58 | disposition home health service (06) | DRG 897 ==
LOC: JER 18:40 → JERBED 23:27 → OBSVTOIN 10-23 14:04 → J5S 10-23 18:17
PROVIDERS: ADMIT Internal Medicine; ATTEND Internal Medicine
PROC: HZ2ZZZZ Detoxification Services for Substance Abuse Treatment (ICD-10-PCS; principal; 2023-10-21)
DX: F10.120 Alcohol abuse with intoxication, uncomplicated (principal); I50.30 Unspecified diastolic (congestive) heart failure; E87.20 Acidosis, unspecified; I48.91 Unspecified atrial fibrillation; E86.0 Dehydration; I10 Essential (primary) hypertension; E78.5 Hyperlipidemia, unspecified; E11.9 Type 2 diabetes mellitus without complications; J44.9 Chronic obstructive pulmonary disease, unspecified; Z85.038 Personal history of other malignant neoplasm of large intestine; I25.10 Atherosclerotic heart disease of native coronary artery without angina pectoris; I11.0 Hypertensive heart disease with heart failure; G62.9 Polyneuropathy, unspecified; K21.9 Gastro-esophageal reflux disease without esophagitis
CPT/HCPCS: 0241U-QW; 36415; 70450-TC; 71045-TC-FY; 72125-TC; 80053; 80307; 81003; 82140; 82550; 82553; 82607; 82803; 82962; 83605; 84439; 84443; 84484; 85025; 85610; 85730; 86850; 86900; 86901; 87040; 87086; 87186; 87635; 93005; 93010; 94640; 97116-GP; 97161-GP; 99285-25; G0378

== ENCOUNTER 2024-04-28 13:00 | Inpatient (IN) | payer OTHER, BC ==
[2024-04-28 14:26] LABS: VENOUS BASE EXCESS 0.3 mmol/L (-2-2); VENOUS O2 SATURATION 73.1 % (70-80); VENOUS PCO2 40.7 mmHg (38-52); VENOUS PH 7.406 (7.310-7.410)
[2024-04-28 14:29] LABS: HEMATOCRIT 36.9 % (35.4-49); HEMOGLOBIN 12.1 GM/dL (11.7-16.9); MCH 33.9 pg (25.7-33.7); MCHC 32.9 g/dl (32.0-35.9); MEAN CELL VOLUME 102.9 fl (80-96); MEAN PLT VOLUME 7.2 fl (7.5-11.1); PLATELET COUNT 140 10^3/uL (134-434); RBC 3.58 M/mm3 (4.00-5.60); RDW 14.7 % (11.9-15.9); WHITE BLOOD COUNT 6.4 K/mm3 (4.0-10.0)
[2024-04-28 14:34] LABS: INR 2.28 (0.83-1.09); PROTHROMBIN TIME (PATIENT) 25.1 SEC (9.7-13.0)
[2024-04-28 14:37] LABS: ACTIVATED PTT 35.3 SECONDS (25.2-36.5); POTASSIUM 4.6 mmol/L (3.5-5.1)
[2024-04-28 14:39] LABS: CALCIUM 8.9 mg/dL (8.5-10.1)
[2024-04-28 14:40] LABS: ALBUMIN 3.6 g/dl (3.4-5.0); BLOOD UREA NITROGEN 15.1 mg/dL (7-18)
[2024-04-28 14:43] LABS: CREATININE 0.6 mg/dL (0.55-1.3)
[2024-04-28 14:45] LABS: BILIRUBIN,TOTAL 1.3 mg/dL (0.2-1); TOT PROT 5.8 g/dl (6.4-8.2)
[2024-04-28 14:48] LABS: N-TERMINAL BNP 1411.7 pg/ml (5-450)
[2024-04-28 15:03] LABS: ANISOCYTOSIS 0; MACROCYTOSIS 1+
[2024-04-28] MEDS ORDERED: NITROGLYCERIN SUBLINGUAL 1/150 0.4 MG TAB SL PRN (18:02)
[2024-04-28] MEDS: AZITHROMYCIN 500 MG TABLET PO SCH (18:46)
[2024-04-28] MEDS: FUROSEMIDE 40 MG/4 ML INJECTABLE VIAL IVPUSH SCH (18:46)
[2024-04-28] MEDS ORDERED: ALBUTEROL SO4 2.5/IPRATROPIUM 0.5 INH SOL 3 ML VIAL.NEB. NEB ONE (20:01)
[2024-04-28] MEDS: ALBUTEROL SO4 2.5/IPRATROPIUM 0.5 INH SOL 3 ML VIAL.NEB. NEB SCH (20:04)
[2024-04-28] MEDS ORDERED: MONTELUKAST NA 10 MG TABLET ONE (21:50)
[2024-04-28] MEDS ORDERED: ROSUVASTATIN CA 5 MG TABLET ONE (21:50)
[2024-04-28] MEDS ORDERED: GABAPENTIN 300 MG CAPSULE ONE (21:50)
[2024-04-28] MEDS ORDERED: RANOLAZINE E.R. 500 MG TABLET (FP) ONE (21:51)
[2024-04-28] MEDS ORDERED: ACETAMINOPHEN 325 MG TABLET (FP) ONE (21:56)
[2024-04-28] MEDS: RANOLAZINE E.R. 500 MG TABLET (FP) PO SCH (21:58)
[2024-04-28] MEDS: ACETAMINOPHEN 325 MG TABLET (FP) PO PRN (21:58)
[2024-04-28] MEDS: MONTELUKAST NA 10 MG TABLET PO SCH (21:58)
[2024-04-28] MEDS: ROSUVASTATIN CA 10 MG TABLET PO SCH (21:58)
[2024-04-28] MEDS: GABAPENTIN 300 MG CAPSULE PO SCH (21:58)
[2024-04-29] MEDS ORDERED: guaiFENesin/D-METHORPHAN HB 10 ML UNIT-DOSE CUPS ONE (06:06)
[2024-04-29] MEDS ORDERED: GABAPENTIN 300 MG CAPSULE ONE (06:06)
[2024-04-29] MEDS: guaiFENesin 200 MG/10 ML 10 ML UNIT-DOSE CUPS PO ONE (06:09)
[2024-04-29 07:04] LABS: HEMATOCRIT 37.4 % (35.4-49); HEMOGLOBIN 12.5 GM/dL (11.7-16.9); MCH 34.6 pg (25.7-33.7); MCHC 33.5 g/dl (32.0-35.9); MEAN CELL VOLUME 103.2 fl (80-96); MEAN PLT VOLUME 7.1 fl (7.5-11.1); PLATELET COUNT 147 10^3/uL (134-434); RBC 3.63 M/mm3 (4.00-5.60); WHITE BLOOD COUNT 7.1 K/mm3 (4.0-10.0)
[2024-04-29 07:21] LABS: POTASSIUM 3.8 mmol/L (3.5-5.1)
[2024-04-29 07:23] LABS: CALCIUM 8.9 mg/dL (8.5-10.1)
[2024-04-29 07:27] LABS: CREATININE 0.6 mg/dL (0.55-1.3)
[2024-04-29] MEDS ORDERED: IBUPROFEN 600 MG TABLET (FP) PO ONE (09:41)
[2024-04-29 09:49] LABS: ANISOCYTOSIS 0; MACROCYTOSIS 1+
[2024-04-29] MEDS ORDERED: PATIENT'S OWN MEDICATION (NON-FORMULARY) (Famotidine 40 MG Tablet) PO SCH (10:00)
[2024-04-29] MEDS ORDERED: PATIENT'S OWN MEDICATION (NON-FORMULARY) (Ferrous Sulfate [Iron] 325 MG Tablet) PO SCH (10:00)
[2024-04-29] MEDS ORDERED: PATIENT'S OWN MEDICATION (NON-FORMULARY) (Ascorbic Acid/Ascorbate Sodium [Vitamin C 500 Mg PO SCH (10:00)
[2024-04-29] MEDS ORDERED: PANTOPRAZOLE 40 MG TABLET PO ONE (10:08)
[2024-04-29] MEDS ORDERED: FAMOTIDINE 20 MG TABLET ONE (10:09)
[2024-04-29] MEDS ORDERED: LOSARTAN POTASSIUM 25 MG TABLET ONE (10:09)
[2024-04-29] MEDS ORDERED: predniSONE 10 MG TABLET (UD) ONE (10:09)
[2024-04-29] MEDS ORDERED: MAGNESIUM OXIDE 400 MG TABLET (FP) ONE (10:09)
[2024-04-29] MEDS ORDERED: FERROUS SO4 325 MG TABLET (FP) ONE (10:10)
[2024-04-29] MEDS ORDERED: ASCORBIC ACID 500 MG TABLET (FP) ONE (10:10)
[2024-04-29] MEDS ORDERED: LORATADINE 10 MG TABLET ONE (10:10)
[2024-04-29] MEDS ORDERED: RANOLAZINE E.R. 500 MG TABLET (FP) ONE (10:11)
[2024-04-29] MEDS ORDERED: TAMSULOSIN HCL 0.4 MG CAP ONE (10:12)
[2024-04-29] MEDS ORDERED: FUROSEMIDE 40 MG/4 ML INJECTABLE VIAL ONE (10:12)
[2024-04-29] MEDS ORDERED: oxyCODONE HCL 5 MG TABLET ONE (10:12)
[2024-04-29] MEDS: ASCORBIC ACID 500 MG TABLET (FP) PO SCH (10:15)
[2024-04-29] MEDS: MAGNESIUM OXIDE 400 MG TABLET (FP) PO SCH (10:15)
[2024-04-29] MEDS: ESCITALOPRAM OXALATE 20 MG TABLET PO SCH (10:15)
[2024-04-29] MEDS: predniSONE 10 MG TABLET (UD) PO SCH (10:15)
[2024-04-29] MEDS: TAMSULOSIN HCL 0.4 MG CAP PO SCH (10:15)
[2024-04-29] MEDS: PANTOPRAZOLE 40 MG TABLET PO SCH (10:15)
[2024-04-29] MEDS: LORATADINE 10 MG TABLET PO SCH (10:15)
[2024-04-29] MEDS: FAMOTIDINE 40 MG TABLET PO SCH (10:15)
[2024-04-29] MEDS: FERROUS SO4 325 MG TABLET (FP) PO SCH (10:15)
[2024-04-29] MEDS: FINASTERIDE 5 MG TABLET (FP) PO SCH (10:15)
[2024-04-29] MEDS ORDERED: ALBUTEROL SO4 2.5/IPRATROPIUM 0.5 INH SOL 3 ML VIAL.NEB. NEB ONE (10:31)
[2024-04-29] MEDS: LOSARTAN POTASSIUM 25 MG TABLET PO SCH (11:00)
[2024-04-29] MEDS ORDERED: AZITHROMYCIN 500 MG TABLET ONE (11:33)
[2024-04-29] MEDS: RIVAROXABAN 20 MG TABLET PO SCH (18:06)
[2024-04-29] MEDS: FLUTICASONE/UMECLIDIN/VILANTER(200-62.5-25 TRELEGY ELLIPTA) INAHLER IH SCH (18:06)
[2024-04-30] MEDS: oxyCODONE HCL 5 MG TABLET PO PRN (06:48)
[2024-04-30 08:30] LABS: HEMATOCRIT 38.7 % (35.4-49); HEMOGLOBIN 12.8 GM/dL (11.7-16.9); MCHC 33.1 g/dl (32.0-35.9); MEAN CELL VOLUME 102.9 fl (80-96); MEAN PLT VOLUME 7.2 fl (7.5-11.1); PLATELET COUNT 142 10^3/uL (134-434); RBC 3.76 M/mm3 (4.00-5.60); WHITE BLOOD COUNT 7.3 K/mm3 (4.0-10.0)
[2024-04-30 08:35] LABS: POTASSIUM 3.3 mmol/L (3.5-5.1)
[2024-04-30 08:40] LABS: CALCIUM 8.8 mg/dL (8.5-10.1)
[2024-04-30 08:41] LABS: ALBUMIN 3.3 g/dl (3.4-5.0); BLOOD UREA NITROGEN 11.8 mg/dL (7-18)
[2024-04-30 08:44] LABS: CREATININE 0.5 mg/dL (0.55-1.3)
[2024-04-30 08:45] LABS: BILIRUBIN,TOTAL 1.3 mg/dL (0.2-1); TOT PROT 5.4 g/dl (6.4-8.2)
[2024-04-30 10:34] LABS: ANISOCYTOSIS 1+; MACROCYTOSIS 1+
[2024-04-30] MEDS: AZITHROMYCIN 250 MG TABLET PO ONE (17:21)
[2024-05-01 08:11] LABS: HEMATOCRIT 39.2 % (35.4-49); HEMOGLOBIN 12.9 GM/dL (11.7-16.9); MCH 33.7 pg (25.7-33.7); MCHC 32.9 g/dl (32.0-35.9); MEAN CELL VOLUME 102.5 fl (80-96); MEAN PLT VOLUME 7.2 fl (7.5-11.1); PLATELET COUNT 155 10^3/uL (134-434); RBC 3.82 M/mm3 (4.00-5.60); RDW 15.2 % (11.9-15.9)
[2024-05-01 08:24] LABS: POTASSIUM 3.3 mmol/L (3.5-5.1)
[2024-05-01 08:31] LABS: CALCIUM 8.8 mg/dL (8.5-10.1)
[2024-05-01 08:32] LABS: ALBUMIN 3.5 g/dl (3.4-5.0); BLOOD UREA NITROGEN 9.2 mg/dL (7-18)
[2024-05-01 08:35] LABS: CREATININE 0.5 mg/dL (0.55-1.3)
[2024-05-01 08:37] LABS: TOT PROT 5.7 g/dl (6.4-8.2)
[2024-05-01 09:57] LABS: ANISOCYTOSIS 1+; MACROCYTOSIS 1+
[2024-05-01] MEDS: POTASSIUM CHLORIDE ORAL LIQUID 20 MEQ/15 ML PO ONE (12:24)
[2024-05-01 12:54] VITALS: BP 152/74; PULSE 102; RESP 20; TEMP 97.7; BMI 25.1
== END 2024-05-01 14:04 | disposition home health service (06) | DRG 291 ==
LOC: JER 13:00 → JERBED 17:24 → OBSVTOIN 18:05 → J4S 04-29 14:02
PROVIDERS: ADMIT Internal Medicine; ATTEND Nurse Practitioner
DX: I11.0 Hypertensive heart disease with heart failure (principal); I50.43 Acute on chronic combined systolic (congestive) and diastolic (congestive) heart failure; J44.1 Chronic obstructive pulmonary disease with (acute) exacerbation; I48.21 Permanent atrial fibrillation; K21.9 Gastro-esophageal reflux disease without esophagitis; J20.9 Acute bronchitis, unspecified; F10.10 Alcohol abuse, uncomplicated; E11.51 Type 2 diabetes mellitus with diabetic peripheral angiopathy without gangrene; I27.20 Pulmonary hypertension, unspecified; J44.9 Chronic obstructive pulmonary disease, unspecified
CPT/HCPCS: 0241U-QW; 36415; 71046-TC-FY; 80048; 80053; 82803; 82962; 83735; 83880; 84484; 85025; 85610; 85730; 93005; 93010; 93306-TC; 94640; 97116-GP; 97161-GP; 99285-25; G0378

== ENCOUNTER 2024-06-03 07:56 | Emergency (ER) | payer OTHER, BC ==
[2024-06-03 08:04] VITALS: BP 157/85; PULSE 94; RESP 18; TEMP 97.7; BMI 23.3
[2024-06-03] MEDS ORDERED: ACETAMINOPHEN 500 MG TABLET (FP) PO ONE (08:17)
[2024-06-03] MEDS ORDERED: DIPHTH,PERTUSS(ACELL),TET 0.5 ML DISP.SYRIN IM ONE ×2 (08:17→09:08)
[2024-06-03] MEDS ORDERED: BACITRACIN ZINC 15 GM TUBE TOPICAL OINTMENT TP ONE (08:26)
[2024-06-03] MEDS ORDERED: ACETAMINOPHEN 500 MG TABLET (FP) ONE (09:07)
== END 2024-06-03 09:30 | disposition left against medical advice (07) ==
LOC: JER 07:56
PROC: 2W3DX1Z Immobilization of Left Lower Arm using Splint (ICD-10-PCS; principal; 2024-06-03)
DX: S41.112A Laceration without foreign body of left upper arm, initial encounter (principal); M25.532 Pain in left wrist; Y35.811A Legal intervention involving manhandling, law enforcement official injured, initial encounter
CPT/HCPCS: 29125; 73070-TC-LT-FY; 73090-TC-LT-FY; 73110-TC-LT-FY; 73130-TC-LT-FY; 99283-25

== ENCOUNTER 2024-09-27 18:51 | Emergency (ER) | payer OTHER, BC ==
[2024-09-27 19:05] VITALS: BP 104/64; PULSE 75; RESP 18; TEMP 97.5; BMI 20.7
[2024-09-27 21:19] LABS: VENOUS BASE EXCESS 1.7 mmol/L (-2-2); VENOUS O2 SATURATION 20.9 % (70-80); VENOUS PCO2 46.4 mmHg (38-52); VENOUS PH 7.386 (7.310-7.410)
[2024-09-27 21:21] LABS: HEMATOCRIT 38.1 % (35.4-49); HEMOGLOBIN 12.4 GM/dL (11.7-16.9); MCH 28.9 pg (25.7-33.7); MCHC 32.6 g/dl (32.0-35.9); MEAN CELL VOLUME 88.6 fl (80-96); PLATELET COUNT 248 10^3/uL (134-434); RDW 14.9 % (11.9-15.9); WHITE BLOOD COUNT 13.7 K/mm3 (4.0-10.0)
[2024-09-27 21:28] LABS: INR 1.61 (0.83-1.09); PROTHROMBIN TIME (PATIENT) 17.5 SEC (9.7-13.0)
[2024-09-27 21:31] LABS: ACTIVATED PTT 30.4 SECONDS (25.2-36.5)
[2024-09-27 21:43] LABS: POTASSIUM 4.2 mmol/L (3.5-5.1)
[2024-09-27 21:45] LABS: CALCIUM 8.8 mg/dL (8.5-10.1)
[2024-09-27 21:46] LABS: ALBUMIN 2.6 g/dl (3.4-5.0); BLOOD UREA NITROGEN 10.9 mg/dL (7-18); MAGNESIUM 1.6 mg/dL (1.8-2.4)
[2024-09-27 21:48] LABS: CREATININE 0.6 mg/dL (0.55-1.3)
[2024-09-27 21:50] LABS: BILIRUBIN,TOTAL 0.7 mg/dL (0.2-1); TOT PROT 5.8 g/dl (6.4-8.2)
[2024-09-27 21:54] LABS: N-TERMINAL BNP 1107.2 pg/ml (5-450)
[2024-09-27 22:20] LABS: ANISOCYTOSIS 0; MACROCYTOSIS 0
[2024-09-27 22:33] LABS: URINE APPEARANCE CLEAR; URINE BILIRUBIN NEGATIVE (NEGATIVE); URINE COLOR YELLOW; URINE GLUCOSE (UA) TRACE (NEGATIVE); URINE KETONE NEGATIVE (NEGATIVE); URINE LEUK ESTERASE NEGATIVE (NEGATIVE); URINE NITRITE NEGATIVE (NEGATIVE); URINE PROTEIN TRACE (NEGATIVE)
[2024-09-27] MEDS: MAGNESIUM SULFATE IN WATER 2 GM/50 ML IVPB IVPB ONE (23:19)
== END 2024-09-27 23:21 | disposition admitted as inpatient to this hospital (09) ==
LOC: JER 18:51
DX: J10.1 Influenza due to other identified influenza virus with other respiratory manifestations (principal); R26.2 Difficulty in walking, not elsewhere classified; E83.42 Hypomagnesemia; R53.1 Weakness; R06.02 Shortness of breath; R05.9 Cough, unspecified; J18.9 Pneumonia, unspecified organism; Z20.822 Contact with and (suspected) exposure to COVID-19
CPT/HCPCS: 0241U-QW; 36415; 71045-TC-FY; 80053; 81003; 82803; 83735; 83880; 84100; 84484; 85025; 85610; 85730; 87086; 93005; 93010; 99285-25

== ENCOUNTER 2025-02-22 08:54 | Emergency (ER) | payer OTHER, BC ==
[2025-02-22 09:04] VITALS: TEMP 98.8; BMI 21.6
[2025-02-22] MEDS ORDERED: ACETAMINOPHEN INJECTION 100 ML ONE (10:27)
[2025-02-22 10:36] LABS: ABSOLUTE IMMATURE GRANULOCYTES 0.28 x10^3/uL (0.0-0.031); BASOPHILS # 0.03 x10^3/uL (0.01-0.08); EOSINOPHIL % 0.6 % (0.8-7.0); EOSINOPHILS # 0.06 x10^3/uL (0.04-0.54); MCHC 32.8 g/dl (32.3-36.5); MEAN CELL VOLUME 90.9 fl (79.0-92.2); MEAN PLT VOLUME 9.1 fl (9.4-12.4); MONOCYTE # 0.91 x10^3/uL (0.30-0.82); MONOCYTE % 9.2 % (5.3-12.2); RDW 13.8 % (12.6-16.6)
[2025-02-22] MEDS: ACETAMINOPHEN 1000 MG/100 ML BAG IVPB ONE (10:40)
[2025-02-22 10:48] LABS: CO2 30.0 mmol/L (21-32); GLUCOSE,RANDOM 293.0 mg/dL (74-106)
[2025-02-22 10:53] LABS: URINE APPEARANCE CLEAR; URINE BILIRUBIN NEGATIVE (NEGATIVE); URINE COLOR YELLOW; URINE GLUCOSE (UA) 3+ (NEGATIVE); URINE KETONE TRACE (NEGATIVE)
[2025-02-22 10:54] LABS: URINE LEUK ESTERASE 1+ (NEGATIVE); URINE NITRITE NEGATIVE (NEGATIVE); URINE PROTEIN TRACE (NEGATIVE); URINE UROBILINOGEN 1.0 mg/dL (0.2-1.0)
[2025-02-22 11:31] LABS: ALK PHOS 79.0 U/L (45-117); CREATININE 0.7 mg/dL (0.55-1.3); SGOT/AST 17.0 U/L (15-37); SGPT/ALT 30.0 U/L (13-61); TOT PROT 5.9 g/dl (6.4-8.2)
[2025-02-22] MEDS ORDERED: MAGNESIUM SULFATE IN WATER 2 GM/50 ML IVPB IVPB ONE (11:37)
[2025-02-22] MEDS: MAGNESIUM SULFATE IN WATER 2 GM/50 ML IVPB IVPB ONE (11:37)
[2025-02-22] MEDS ORDERED: CEFPODOXIME PROXETIL 100 MG TABLET PO ONE (12:07)
[2025-02-22] MEDS: CEFPODOXIME PROXETIL 100 MG TABLET PO ONE (12:40)
[2025-02-22 12:49] VITALS: BP 122/68; PULSE 62; RESP 16
[2025-02-22 15:22] LABS: HCV DIAGNOSTIC IN-HOUSE W/RFLX NON-REACTIVE (NONREACTIVE)
[2025-02-22 15:23] LABS: HIV INTERPRETATION NEGATIVE (NEGATIVE)
== END 2025-02-22 13:16 | disposition home or self-care (01) ==
LOC: JER 08:54
PROC: 3E033GC Introduction of Other Therapeutic Substance into Peripheral Vein, Percutaneous Approach (ICD-10-PCS; principal; 2025-02-22)
PROC: 3E033NZ Introduction of Analgesics, Hypnotics, Sedatives into Peripheral Vein, Percutaneous Approach (ICD-10-PCS; 2025-02-22)
DX: N30.00 Acute cystitis without hematuria (principal); R30.0 Dysuria; R10.30 Lower abdominal pain, unspecified
CPT/HCPCS: 36415; 80053; 81003; 83735; 85025; 86803; 87086; 87389; 99291